=== PATIENT | female | born 1965 | race Caucasian/White ===

== ENCOUNTER 2017-01-30 22:25 | Emergency (ER) | payer SELFPAY ==
[~2017-01-30] VITALS: Ht 167.6 cm; Wt 68.0 kg
--- NOTE | 2017-01-30 22:28 | PHYS DOC ---
Past Medical History Additional Past Medical Histor: Thyroid Past Surgical History: No Surgical History Smoking: Cigarettes Social History Narrative: Lives with children Adult General Chief Complaint Chief Complaint: BACK PAIN OR INJURY HPI HPI Patient is a 51 year old female who presents with back pain. No prior injury or surgery. She states that she was fine yesterday. She went to bed and then awakened with low back pain. She states it got better and then she was out lifting bags off the sidewalk at around 1500 PM. She states she got in her car after that "and I couldn't move." No saddle anesthesia, no radiation of pain, no numbness/tingling or weakness of legs. The pain is across her whole lower back with pain into the lower right back. No recent illness; no fever. 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 Review of Systems Review of Systems Constitutional: Denies fever or chills Eyes: Denies change in visual acuity, redness, or eye pain HENT: Denies nasal congestion or sore throat Respiratory: Denies cough or shortness of breath Cardiovascular: No chest pain GI: Denies abdominal pain, nausea, vomiting, bloody stools or diarrhea : Denies dysuria or hematuria Musculoskeletal: POS back pain; no leg pain Integument: Denies rash or skin lesions Neurologic: Denies headache, focal weakness or sensory changes All other systems were reviewed and found to be within normal limits, except as documented in this note. Current Medications Current Medications Current Medications Medications (Trade) Dose Ordered Sig/Donn Start Time Stop Time Status Last Admin Dose Admin Diazepam (Valium) 5 mg 1X ONCE 01/30/17 22:45 01/30/17 23:06 DC 01/30/17 22:58 5 MG Ketorolac Tromethamine (Toradol Im) 60 mg 1X ONCE 01/30/17 22:45 01/30/17 23:06 DC 01/30/17 22:58 60 MG Orphenadrine Citrate (Norflex) 60 mg 1X ONCE 01/30/17 22:45 01/30/17 23:06 DC 01/30/17 22:58 60 MG Allergies Allergies Allergies Coded Allergies Type Severity Reaction Last Updated Verified amoxicillin Allergy Unknown 01/30/17 Yes clavulanic acid Allergy Unknown 01/30/17 Yes Physical Exam Physical Exam Constitutional: Well developed, well nourished, no acute distress, non-toxic appearance. HENT: Normocephalic, atraumatic, bilateral external ears normal, oropharynx moist, no oral exudates, nose normal. Eyes: PERRLA, EOMI, conjunctiva normal, no discharge. Neck: Normal range of motion, no tenderness, supple, no stridor. Cardiovascular:Heart rate regular rhythm, no murmur Lungs & Thorax: Bilateral breath sounds clear to auscultation Abdomen: Bowel sounds normal, soft, no tenderness, no masses, no pulsatile masses. Skin: Warm, dry, no erythema, no rash. Back: POS tenderness on palpation of right paraspinal lower lumbar muscles and right SI joint area. no CVA tenderness; no pain on palpation of spinous processes. No skin changes; no redness. . Extremities: No tenderness, no cyanosis, no clubbing, ROM intact, no edema. Neurologic: Alert and oriented X 3, normal motor function, normal sensory function, no focal deficits noted. Psychologic: Affect normal, judgement normal, mood normal. Current Patient Data Vital Signs Vital Signs Date Time Temp Pulse Resp B/P (MAP) Pulse Ox O2 Delivery O2 Flow Rate FiO2 01/30/17 22:25 98.1 75 18 199/85 (123) 98 Room Air 98.1 Course & Med Decision Making Course & Med Decision Making Evaluated patient upon arrival by EMS. No prior records here. She has no trauma preceding. She has distinct muscle spasm. Toradol IM, Norflex IM and valium po. Patient much improved. Daughter here to drive her home. Given back pain precautions and follow up. I have spoken with the patient and/or caregivers. I have explained the patient' s condition, diagnosis and treatment plan based on the information available to me at this time. I have answered the patient's and/or caregiver's questions and addressed any concerns. The patient and/or caregivers have as good an understanding of the patient's diagnosis, condition and treatment plan as can be expected at this point. The patient's condition is stable and appropriate for discharge from the emergency department. The patient will pursue further outpatient evaluation with the primary care physician or other designated or consulting physician as outlined in the discharge instructions. The patient and/or caregivers are agreeable to this plan of care and follow-up instructions have been explained in detail. The patient and/or caregivers have received these instructions in written format and have expressed an understanding of the discharge instructions. The patient and/or caregivers are aware that any significant change in condition or worsening of symptoms should prompt an immediate return to this or the closest emergency department or a call to 911. Kelsey Disclaimer Dragon Disclaimer This electronic medical record was generated, in whole or in part, using a voice recognition dictation system. Departure Departure Impression: Primary Impression: Acute lumbar myofascial strain Disposition: HOME, SELF-CARE Condition: STABLE Patient Instructions: Back Pain, Adult Additional Instructions: YOU WERE GIVEN MEDICATIONS HERE; DO NOT DRIVE. CONTINUE YOUR MEDICATIONS DIRECTED. USE ICE OR HEAT/WHICHEVER IMPROVES YOUR SYMPTOMS. PLACE A PILLOW UNDER YOUR LEGS WHEN YOU SLEEP OR BETWEEN YOUR LEGS. Scripts Orphenadrine Citrate (ORPHENADRINE CITRATE) 100 Mg Tablet.er 1 TAB PO BID, #30 TAB 1 Refill Prov: SULTANA HANSEN MD 01/30/17 Naproxen (NAPROSYN) 500 Mg Tablet 1 TAB PO BID, #30 TAB 1 Refill Prov: SULTANA HANSEN MD 01/30/17 Problem Qualifiers Primary Impression: Acute lumbar myofascial strain Encounter type: initial encounter Qualified Codes: S39.012A - Strain of muscle, fascia and tendon of lower back, initial encounter SULTANA HANSEN MD Jan 30, 2017 22:28
[2017-01-30] MEDS ORDERED: diazePAM 5 MG TABLET PO ONE (22:45)
[2017-01-30] MEDS ORDERED: ORPHENADRINE CITRATE 60 MG/2 ML VIAL. IM ONE (22:45)
[2017-01-30] MEDS ORDERED: KETOROLAC 60 MG/2 ML INJ. IM ONE (22:45)
[2017-01-30] MEDS ORDERED: NAPR-683 PO (23:45)
[2017-01-30] MEDS ORDERED: ORPH100T PO (23:45)
[2017-01-31 00:17] VITALS: BP 162/85
== END 2017-01-31 00:15 | disposition home or self-care (01) ==
LOC: ER 22:25
DX: S39.012A Strain of muscle, fascia and tendon of lower back, initial encounter (principal); F17.210 Nicotine dependence, cigarettes, uncomplicated; Z88.1 Allergy status to other antibiotic agents; Z88.8 Allergy status to other drugs, medicaments and biological substances; X58.XXXA Exposure to other specified factors, initial encounter; Y93.89 Activity, other specified; Y92.89 Other specified places as the place of occurrence of the external cause; Y99.8 Other external cause status
CPT/HCPCS: 96372; 99284; J1885; J2360

== ENCOUNTER 2017-11-13 12:12 | Emergency (ER) | payer OTHER ==
[~2017-11-13 12:12] MED LIST: NAPR-683 PO; ORPH100T PO
== END 2017-11-13 13:01 | disposition left against medical advice (07) ==
LOC: ER 12:12
DX: S91.319A Laceration without foreign body, unspecified foot, initial encounter (principal); Z53.21 Procedure and treatment not carried out due to patient leaving prior to being seen by health care provider

== ENCOUNTER 2018-08-29 20:14 | Emergency (ER) | payer OTHER ==
[~2018-08-29] VITALS: Ht 167.6 cm; Wt 81.6 kg
[2018-08-29 20:42] VITALS: BP 161/78
[2018-08-29] MEDS ORDERED: ALBUTEROL SULFATE 2.5 MG/3 ML NEBU. NEB ONE (20:45)
--- NOTE | 2018-08-29 20:58 | PHYS DOC ---
Past Medical History Past Medical History: Asthma, Hypothyroid Additional Past Medical Histor: Thyroid (JOBY BRUNSON APRN) Past Surgical History: No Surgical History (JOBY BRUNSON APRN) Smoking: Cigarettes, Less than 1pk/day Alcohol Use: None Drug Use: None (JOBY BRUNSON APRN) Adult General Chief Complaint Chief Complaint: COUGH HPI HPI Patient is a 52 year old female who presents to the emergency department with complaints of a productive cough for the last 3 weeks. Patient states she has had shortness of breath, sore throat, chest tightness, and congestion for the last 3 weeks. She states that she has been coughing up thick yellow sputum during the day and thick yellow to green sputum during the night. She denies any fever, ear pain, nausea, vomiting, abdominal pain, or palpitations. She states she has had a few loose stools recently. She rates her discomfort a 10 out of 10 on the pain scale, she denies any alleviating factors. She states that the discomfort increases with coughing and deep breath. (JOBY BRUNSON APRN) Review of Systems Review of Systems Constitutional: Denies fever or chills [] Eyes: Denies change in visual acuity, redness, or eye pain [] HENT: Reports nasal congestion and sore throat, denies ear pain Respiratory: see history of present illness Cardiovascular: No additional information not addressed in HPI [] GI: Denies abdominal pain, nausea, or vomiting; see history of present illness Musculoskeletal: Denies back pain or joint pain [] Integument: Denies rash or skin lesions [] Neurologic: Denies headache, focal weakness or sensory changes [] Complete systems were reviewed and found to be within normal limits, except as documented in this note. (JOBY BRUNSON APRN) Current Medications Current Medications Current Medications Medications (Trade) Dose Ordered Sig/Donn Start Time Stop Time Status Last Admin Dose Admin Albuterol Sulfate (Ventolin Neb Soln) 2.5 mg 1X ONCE 08/29/18 20:45 08/29/18 20:46 DC 08/29/18 21:06 2.5 MG Ipratropium [place] (Atrovent) 0.5 mg 1X ONCE 08/29/18 22:00 08/29/18 22:01 DC 08/29/18 22:15 0.5 MG Prednisone (Prednisone) 50 mg 1X ONCE 08/29/18 21:00 08/29/18 21:01 DC 08/29/18 21:00 50 MG (MILDRED RIGGS DO) Allergies Allergies Allergies Coded Allergies Type Severity Reaction Last Updated Verified amoxicillin Allergy Unknown 01/30/17 Yes clavulanic acid Allergy Unknown 01/30/17 Yes (MILDRED RIGGS DO) Physical Exam Physical Exam Constitutional: Well developed, well nourished, no acute distress, ill appearance. [] HENT: Normocephalic, atraumatic, bilateral external ears normal, bilateral TMs normal, cobblestone appearance of posterior pharynx oropharynx moist, no oral exudates, nose congested Eyes: conjunctiva normal, no discharge. [] Neck: Normal range of motion, no tenderness, supple, no stridor. [] Cardiovascular:Heart rate regular rhythm, no murmur [] Lungs & Thorax: Bilateral breath sounds coarse with expiratory wheezes, diminished in bases bilaterally, chest wall tenderness with palpation, no retractions, patient speaking in full sentences Skin: Warm, dry, no erythema, no rash. [] Extremities: No cyanosis, no clubbing, ROM intact, no edema. [] Neurologic: Alert and oriented X 3, no focal deficits noted. [] Psychologic: Affect normal, judgement normal, mood normal. [] (JOBY BRUNSON APRN) Current Patient Data Vital Signs Vital Signs Date Time Temp Pulse Resp B/P (MAP) Pulse Ox O2 Delivery O2 Flow Rate FiO2 08/29/18 22:11 94 Room Air 08/29/18 20:42 98.0 80 24 161/78 (105) 98.0 (MILDRED RIGGS DO) EKG EKG [] (JOBY BRUNSON APRN) Radiology/Procedures Radiology/Procedures CXR no acute findings or infiltrates read by Dr. Riggs[] (JOBY BRUNSON APRN) Course & Med Decision Making Course & Med Decision Making Pertinent Labs and Imaging studies reviewed. (See chart for details) dx: Bronchitis, asthma exacerbation She is a 52-year-old female who presented to the emergency room for complaints of a productive cough, shortness of breath, wheezing, and chest tightness for the last 3 weeks. She was given a breathing treatment of albuterol in the emergency department and 50 mg of by mouth prednisone. Patient's lung sounds improved however remained course with scattered wheezes following the breathing treatment. Patient reported feeling better after the breathing treatment and oral prednisone. Chest x-ray revealed no acute findings or infiltrates. Patient stated that she felt better and would like to go home. Prescription written for albuterol inhaler, azithromycin Z-Lio, and prednisone 50 mg tablets #4 Follow-up with your primary care doctor in 1-2 days, return to the ER if symptoms worsen. Patient verbalized an understanding of home care, medications, follow-up, and return to ED instructions and was in agreement with the plan of care. (JOBY BRUNSON APRN) Dragon Disclaimer Dragon Disclaimer This electronic medical record was generated, in whole or in part, using a voice recognition dictation system. (JOBY BRUNSON APRN) Departure Departure Impression: Primary Impression: Bronchitis Disposition: HOME, SELF-CARE Condition: STABLE Referrals: NO PCP (PCP) Patient Instructions: Acute Bronchitis, [id number] Additional Instructions: Fill prescription(s) and use as directed. Increase clear fluids, stop smoking. Avoid triggers such as smoke, fragrance, dust, and pollen. Follow-up with your primary care doctor in 1-2 days, return to the ER if symptoms worsen. Scripts Albuterol Sulfate (PROAIR HFA INHALER) 8.5 Gm Hfa.aer.ad 2 PUFF INH PRN Q4-6HRS PRN for SHORTNESS OF BREATH for 30 Days, #1 INHALER 0 Refills Prov: JOBY BRUNSON APRN 08/29/18 Prednisone (PREDNISONE) 50 Mg Tablet 1 TAB PO DAILY for 4 Days, #4 TAB 0 Refills begin taking on 08/30/18 Prov: JOBY BRUNSON APRN 08/29/18 Azithromycin (AZITHROMYCIN TABLET) 250 Mg Tablet 1 PKG PO UD, #6 TAB 0 Refills Prov: JOBY BRUNSON APRN 08/29/18 Attending Signature Attending Signature I have reviewed the PA/EXTRACTOR TENDER [employer]OCK's note and plan of care. I was available for consultation as needed during the patient's visit in the emergency department. I agree with the clinical impression, plan, and disposition. (RIGGS,JOBY SWIFT APRN Aug 29, 2018 20:58 MILDRED RIGGS DO Sep 04, 2018 00:08
[2018-08-29] MEDS ORDERED: predniSONE 10 MG TABLET PO ONE (21:00)
[2018-08-29] MEDS ORDERED: ALBU2.5V8 INH (21:54)
[2018-08-29] MEDS ORDERED: AZIT250T6 PO (21:54)
[2018-08-29] MEDS ORDERED: PRED50TA PO (21:54)
[2018-08-29] MEDS ORDERED: IPRATROPIUM BROMIDE 0.5 MG/2.5 ML NEBU. NEB ONE (22:00)
--- NOTE | 2018-08-30 07:31 | RAD ---
PROCEDURE: CHEST PA LATERAL CLINICAL INDICATION: Cough for 3 weeks. COMPARISON: None FINDINGS: No pneumothorax identified. Cardiac and mediastinal contours unremarkable. No pulmonary consolidation or acute airspace disease. No acute osseous abnormalities identified. IMPRESSION: No pulmonary consolidation or acute airspace disease. Electronically signed by: Fer Buckley DO (08/30/2018 7:28 AM) [facility]
== END 2018-08-29 22:21 | disposition home or self-care (01) ==
LOC: ER 20:14
DX: J45.909 Unspecified asthma, uncomplicated (principal); J02.9 Acute pharyngitis, unspecified; E03.9 Hypothyroidism, unspecified; F17.210 Nicotine dependence, cigarettes, uncomplicated; Z88.1 Allergy status to other antibiotic agents
CPT/HCPCS: 71046; 94640; 99284; J7512; J7613; J7644

== ENCOUNTER 2018-12-31 17:17 | Emergency (ER) | payer OTHER ==
[~2018-12-31] VITALS: Ht 170.2 cm; Wt 81.6 kg
[~2018-12-31 17:17] MED LIST changes: +ALBU2.5V8 INH; +AZIT250T6 PO; +PRED50TA PO
[2018-12-31 18:00] VITALS: BP 186/80
[2018-12-31] MEDS ORDERED: DEXAMETHASONE 4 MG TABLET PO STA (18:36)
--- NOTE | 2018-12-31 18:43 | PHYS DOC ---
Past Medical History Past Medical History: Asthma, Hypertension, Hypothyroid Additional Past Medical Histor: Thyroid Past Surgical History: No Surgical History Alcohol Use: None Drug Use: None Adult General Chief Complaint Chief Complaint: KNEE INJURY HPI HPI Patient is a 53 year old female who presents with right leg swelling started yesterday. She has redness, warmth, and swelling to the leg. She denies any trauma. She reports her pain as 7 out of 10 in severity she's been taking [place]'s at home. She states she has a history of asthma and COPD and she's been feeling a little bit short of breath. Review of Systems Review of Systems Constitutional: Denies fever or chills [] Eyes: Denies change in visual acuity, redness, or eye pain [] HENT: Denies nasal congestion or sore throat [] Respiratory: Reports cough and shortness of breath [] Cardiovascular: No additional information not addressed in HPI [] GI: Denies abdominal pain, nausea, vomiting, bloody stools or diarrhea [] : Denies dysuria or hematuria [] Musculoskeletal: Reports R leg pain. Integument: Denies rash or skin lesions [] Neurologic: Denies headache, focal weakness or sensory changes [] Endocrine: Denies polyuria or polydipsia [] Complete systems were reviewed and found to be within normal limits, except as documented in this note. Current Medications Current Medications Current Medications Medications (Trade) Dose Ordered Sig/[facility] Start Time Stop Time Status Last Admin Dose Admin Albuterol/ Ipratropium (Duoneb) 3 ml 1X ONCE 12/31/18 18:45 12/31/18 18:46 DC 12/31/18 18:55 3 ML Dexamethasone (Decadron) 10 mg 1X STAT 12/31/18 18:36 12/31/18 18:40 DC 12/31/18 19:01 10 MG Allergies Allergies Allergies Coded Allergies Type Severity Reaction Last Updated Verified amoxicillin Allergy Unknown 01/30/17 Yes clavulanic acid Allergy Unknown 01/30/17 Yes Physical Exam Physical Exam Constitutional: Well developed, well nourished, no acute distress, non-toxic appearance. [] HENT: Normocephalic, atraumatic, bilateral external ears normal, oropharynx moist, no oral exudates, nose normal. [] Eyes: PERRLA, EOMI, conjunctiva normal, no discharge. [] Neck: Normal range of motion, no tenderness, supple, no stridor. [] Cardiovascular:Heart rate regular rhythm, no murmur [] Lungs & Thorax: Bilateral breath sounds have wheezing and Rhonchi scattered diffusely. Abdomen: Bowel sounds normal, soft, no tenderness, no masses, no pulsatile masses. [] Skin: Warm, dry, , petichial rash R leg.[] Back: No tenderness, no CVA tenderness. [] Extremities: Tenderness to posterior knee with edema and warmth. Neurologic: Alert and oriented X 3, normal motor function, normal sensory function, no focal deficits noted. [] Psychologic: Affect normal, judgement normal, mood normal. [] Current Patient Data Vital Signs Vital Signs Date Time Temp Pulse Resp B/P (MAP) Pulse Ox O2 Delivery O2 Flow Rate FiO2 12/31/18 18:56 94 Room Air 12/31/18 18:00 97.8 73 15 186/80 (115) 97.8 EKG EKG [] Radiology/Procedures Radiology/Procedures [][facility] [address] [place] [address] IMAGING REPORT Signed PATIENT: SANDRO ELLIS ACCOUNT: [id number] : 1965 LOCATION: ER AGE: 53 SEX: F EXAM STATUS: DEP ER ORD. PHYSICIAN: MILDRED MOISE APRN REASON: leg pain/swelling PROCEDURE: VENOUS LOWER EXTREMITY RIGHT Right lower extremity venous Doppler ultrasound History: Right leg pain. Comparison: None. Procedure: Color flow Doppler, Doppler spectral analysis, and 2D images are obtained with and without compression in the area of the common femoral vein, superficial femoral vein - femoral vein junction, main femoral vein (superficial femoral vein) and popliteal vein. Veins of the proximal calf are also imaged. Findings: There is normal color flow, augmentation, and compressibility of all visualized vein segments. No evidence of deep venous thrombus is present. IMPRESSION: No evidence of right lower extremity deep venous thrombosis. Electronically signed by: Israel Leyva MD (12/31/2018 9:56 PM) [facility] DICTATED and SIGNED BY: ISRAEL LEYVA MD DATE: 12/31/18 2377 Course & Med Decision Making Course & Med Decision Making Pertinent Labs and Imaging studies reviewed. (See chart for details) Will give breathing treatment/steroids and get a ultrasound. Patient feels better after breathing treatment and steroids. Will d/c home. Ultrasound is negative. Will have follow up with primary care doctor for more tests. Dragon Disclaimer Dragon Disclaimer This electronic medical record was generated, in whole or in part, using a voice recognition dictation system. Departure Departure Impression: Primary Impression: Right leg pain Additional Impressions: Rash in adult COPD exacerbation Disposition: HOME, SELF-CARE Condition: STABLE Referrals: JANIS VELAZQUEZ MD (PCP) Patient Instructions: Chronic Obstructive Pulmonary Disease Exacerbation Additional Instructions: Thank you for visiting [facility]. We appreciate you trusting us with your care. If any additional problems come up don't hesitate to return to visit us. Please follow up with your primary care provider so they can plan additional care if needed and know about the problem that you had. If symptoms worsen come back to the Emergency Department. Any concerning symptoms that start such as chest pain, shortness of air, weakness or numbness on one side of the body, running high fevers or any other concerning symptoms return to the ER. Problem Qualifiers MILDRED OMISE APRN Dec 31, 2018 18:43
[2018-12-31] MEDS ORDERED: IPRATRPIUM/ALBUTEROL 0.5/2.5MG 3 ML NEBU. NEB ONE (18:45)
--- NOTE | 2018-12-31 21:58 | RAD ---
Right lower extremity venous Doppler ultrasound History: Right leg pain. Comparison: None. Procedure: Color flow Doppler, Doppler spectral analysis, and 2D images are obtained with and without compression in the area of the common femoral vein, superficial femoral vein - femoral vein junction, main femoral vein (superficial femoral vein) and popliteal vein. Veins of the proximal calf are also imaged. Findings: There is normal color flow, augmentation, and compressibility of all visualized vein segments. No evidence of deep venous thrombus is present. IMPRESSION: No evidence of right lower extremity deep venous thrombosis. Electronically signed by: Israel Leyva MD (12/31/2018 9:56 PM) [facility]
== END 2018-12-31 21:25 | disposition home or self-care (01) ==
LOC: ER 17:17
DX: J44.1 Chronic obstructive pulmonary disease with (acute) exacerbation (principal); M79.604 Pain in right leg; R21 Rash and other nonspecific skin eruption; E03.9 Hypothyroidism, unspecified; I10 Essential (primary) hypertension; Z88.1 Allergy status to other antibiotic agents; Z88.8 Allergy status to other drugs, medicaments and biological substances
CPT/HCPCS: 93971; 94640; 99284; J7620; J8540

== ENCOUNTER → 2019-01-22 | Outpatient (CLI) | payer OTHER ==
[2018-12-31 18:00] VITALS: BP 186/80
--- NOTE | 2019-01-22 13:05 | RAD ---
Examination: KNEE RIGHT 3V History: Pain Comparison/Correlation: None Findings: Total of 3 images of the right knee were obtained. Joint spaces are normal. No fracture or bony destruction. No significant joint effusion. Bony mineralization is adequate. No definite or significant degenerative change. Impression: No suspicious process. Electronically signed by: Milton Tripathi MD (01/22/2019 1:02 PM) [facility]
== END | disposition home or self-care (01) ==
LOC: RAD 11:16
PROVIDERS: ATTEND Family Medicine
DX: M25.561 Pain in right knee (principal)
CPT/HCPCS: 73562

== ENCOUNTER 2019-08-25 08:57 | Inpatient (IN) | payer OTHER ==
[~2019-08-25] VITALS: Ht 167.6 cm; Wt 90.9 kg
[~2019-08-25 08:57] MED LIST changes: +LISI10TA2 PO
[2019-08-25] MEDS ORDERED: IV NORMAL SALINE 1000ML BAG 1,000 ML IV ONE (09:45)
[2019-08-25] MEDS ORDERED: DEXAMETHASONE SOD PHOS 4 MG/ML VIAL IVP ONE (09:45)
[2019-08-25] MEDS ORDERED: AZITHRMYCN 500MG IVPB FOR OMNI 250 ML IV ONE (09:45)
--- NOTE | 2019-08-25 09:46 | PHYS DOC ---
Past Medical History Past Medical History: Asthma, COPD, Hypertension, Hypothyroid Past Surgical History: No Surgical History Smoking Status: Current Every Day Smoker Alcohol Use: None Drug Use: Marijuana General Adult EDM: Chief Complaint: SHORTNESS OF BREATH HPI: HPI: 53-year-old female presents with past medical history of asthma and COPD presents with report of increased shortness of air and wheezing for the past 1 week. Reports productive cough with yellow sputum. Denies known sick contacts. Denies fever or chills. Denies known exposure to COVID-19. Review of Systems: Review of Systems: Constitutional: Denies fever or chills Eyes: Denies redness or eye pain HENT: Reports nasal congestion and sneezing Respiratory: Reports productive cough, wheezing, and shortness of breath Cardiovascular: Denies chest pain or palpitations GI: Denies abdominal pain, nausea, or vomiting : Denies dysuria or hematuria Musculoskeletal: Denies back pain or joint pain Integument: Denies rash or skin lesions Neurologic: Reports headache; reports focal weakness or sensory changes Complete systems were reviewed and found to be within normal limits, except as documented in this note. Current Medications: Current Medications Medications (Trade) Dose Ordered Sig/Donn Start Time Stop Time Status Last Admin Dose Admin Azithromycin 250 ml @ 250 mls/hr 1X ONCE 08/25/19 09:45 08/25/19 10:44 UNV Dexamethasone Sodium Phosphate (Decadron) 10 mg 1X ONCE 08/25/19 09:45 08/25/19 09:46 UNV Sodium Chloride 1,000 ml @ 1,000 mls/hr 1X ONCE 08/25/19 09:45 08/25/19 10:44 UNV Allergies: Allergies: Allergies Coded Allergies Type Severity Reaction Last Updated Verified amoxicillin Allergy Severe SOB,RASH 02/09/19 Yes clavulanic acid Allergy Unknown 01/30/17 Yes Physical Exam: PE: Constitutional: Well developed, well nourished, no acute distress, non-toxic appearance HENT: Normocephalic, atraumatic Eyes: Conjunctiva normal, no discharge Neck: Normal range of motion, no tenderness, supple Lungs & Thorax: Increased work of breathing, audible wheezing Abdomen: Soft, no tenderness Skin: Warm, dry, no erythema, no rash Extremities: No tenderness, ROM intact, no edema Neurologic: Alert and oriented X 3, no focal deficits noted Psychologic: Affect normal, judgment normal EKG: EKG: @0925 NSR at 89bpm, NO ST elevation, QRS 74ms, QT/QTc 346/422ms, V6 with wand ering baseline Radiology/Procedures: Radiology/Procedures: PROCEDURE: CHEST AP ONLY Chest AP portable 08/25/2019. Reason for exam: Cough and wheeze. Comparison is made with a study of 02/08/2019. The right IJ central line has been removed since the prior exam. Some haziness projects over the lower lungs, but is thought to relate to overlying breast tissue. There is no identified infiltrate or effusion. Heart size is normal. IMPRESSION: No acute findings. Electronically signed by: Alexander Schwartz Jr., MD (08/25/2019 11:14 AM) [id number] Course & Med Decision Making: Course & Med Decision Making Pertinent Labs and Imaging studies reviewed. (See chart for details) Patient presents with report of progressive wheezing with productive cough. Patient noted to be hypoxic upon arrival. Improved with supplemental O2. Cannot exclude COVID-19. Patient denies known exposure. COVID precautions in place and testing pending. Labs obtained and posted to chart. WBC slightly elevated. Lactic acid within normal limits. Troponin and d-dimer also within normal limits. EKG stable. Chest x-ray without acute process. Given him sputum change empiric antibiotic initiated. Steroid provided. Patient requiring admission for further evaluation and treatment. Discussed with Dr. Grimaldo (PCP) who is in agreement with admission. Discussed findings and plan with patient, who acknowledges understanding and agreement. COVID-19 CRITERIA: The patient was evaluated during the global COVID-19 pandemic, and that diagnosis was suspected/considered upon their initial present ation. Their evaluation, treatment and testing was consistent with current guidelines for patients who present with complaints or symptoms that may be related to COVID-19. Dragon Disclaimer: Dragon Disclaimer: This electronic medical record was generated, in whole or in part, using a voice recognition dictation system. Departure Departure Impression: Primary Impression: COPD exacerbation Additional Impressions: Hypoxia Suspected 2018 novel coronavirus infection Disposition: ADMITTED INPATIENT Condition: GUARDED Referrals: JANIS VELAZQUEZ MD (PCP) Justicifation of Admission Dx: Justifications for Admission: Justification of Admission Dx: Yes Acute COPD Exacerbation: Acute COPD Exacerbation Comments: Hypoxia COVID-19 Assessment: COVID-19 Patient Risks: Age 65 or older: No Sign of co-morbidity: No Exp to person + for COVID: No Exp to PUI: No Travel from affected area: No Lower respiratory symptoms: Yes Fever: No PPE Use: Full PPE with N95 mask or PAPR: Yes Critical Care Time Critical care time was 30 minutes which includes time at bedside, spent in discussion of patient's care with specialists and/or family members, with interpretation of laboratory and/or radiological studies and is exclusive of procedures. MILDRED RIGGS DO Aug 25, 2019 09:46
[2019-08-25 09:57] LABS: BASO # 0.1 x10^3/uL (0.0-0.2); BASO % 1 % (0-3); EOS # 0.1 x10^3/uL (0.0-0.7); EOS % 0 % (0-3); HEMATOCRIT 45.9 % (36.0-47.0); HEMOGLOBIN 15.6 g/dL (12.0-15.5); LYMPH # 1.6 x10^3/uL (1.0-4.8); LYMPH % 12 % (24-48); MEAN CORPUSCULAR HEMOGLOBIN 30 pg (25-35); MEAN CORPUSCULAR HGB CONC 34 g/dL (31-37); MEAN CORPUSCULAR VOLUME 87 fL (79-100); MONO % 8 % (0-9); NEUT # 10.5 x10^3/uL (1.8-7.7); NEUT % 79 % (31-73); PLATELET COUNT 266 x10^3/uL (140-400); RED BLOOD COUNT 5.26 x10^6/uL (3.50-5.40); RED CELL DISTRIBUTION WIDTH 14.4 % (11.5-14.5); WHITE BLOOD COUNT 13.3 x10^3/uL (4.0-11.0)
[2019-08-25 10:05] LABS: CALCIUM 9.1 mg/dL (8.5-10.1); CREATININE 0.8 mg/dL (0.6-1.0); GFR 74.5; POTASSIUM 4.1 mmol/L (3.5-5.1)
[2019-08-25 10:09] LABS: PROTHROMBIN TIME PATIENT 13.1 SEC (11.7-14.0)
[2019-08-25 10:23] LABS: ALBUMIN 3.1 g/dL (3.4-5.0); ALBUMIN/GLOBULIN RATIO 0.7 (1.0-1.7); D-DIMER 0.36 ug/mlFEU (0.00-0.50); TOTAL BILIRUBIN 0.7 mg/dL (0.2-1.0); TOTAL PROTEIN 7.7 g/dL (6.4-8.2)
[2019-08-25] MEDS ORDERED: ACETAMINOPHEN 325 MG TABLET. PO PRN (11:00)
[2019-08-25] MEDS ORDERED: ALBUTEROL SULFATE 2.5 MG/3 ML NEBU. NEB PRN (11:15)
--- NOTE | 2019-08-25 11:17 | RAD ---
Chest AP portable 08/25/2019. Reason for exam: Cough and wheeze. Comparison is made with a study of 02/08/2019. The right IJ central line has been removed since the prior exam. Some haziness projects over the lower lungs, but is thought to relate to overlying breast tissue. There is no identified infiltrate or effusion. Heart size is normal. IMPRESSION: No acute findings. Electronically signed by: Alexander Schwartz Jr., MD (08/25/2019 11:14 AM) [id number]
--- NOTE | 2019-08-25 12:48 | PDOC ---
Provider Note Provider Note [id number] Justicifation of Admission Dx: Justifications for Admission: Justification of Admission Dx: Yes Acute COPD Exacerbation: Acute COPD Exacerbation SMITHA GREGORIO MD Aug 25, 2019 12:48
--- NOTE | 2019-08-25 12:50 | NUR ---
Patient arrived to room 672 via bed from ER at 1250. Patient A&OX4. VSS. The patient, SANDRO ELLIS, 53 y/o, F admitted by SMITHA GREGORIO MD, was given written information regarding hospital policies, unit procedures and contact persons. Valuables were checked and noted. Will continue to monitor.
--- NOTE | 2019-08-25 12:57 | HP ---
ADMIT DATE: 08/25/2019 CHIEF COMPLAINT: Shortness of breath and productive cough. HISTORY OF PRESENT ILLNESS: The patient is a 53-year-old white female with history of hypertension and COPD, who normally sees Dr. Gaming and was last seen in February of this year. She has had increasing cough, shortness of breath and yellow sputum production for the last 4-5 days and came to the ER. Chest x-ray was clear. COVID test is pending. She was given a dose of Decadron and azithromycin and transferred to the floor. PAST MEDICAL HISTORY: ALLERGIES: ALLERGIC TO AUGMENTIN. MEDICATIONS: Lisinopril is her only prescription. She has not been in the hospital for a few years. She has had pneumococcal vaccine. SURGICAL HISTORY: No major surgeries. SOCIAL HISTORY: Still smokes about a pack a day. and employed. Nondrinker. FAMILY HISTORY: Unremarkable. REVIEW OF SYSTEMS: Unremarkable. OBJECTIVE: ENT: All within normal limits with a mask in place. NECK: No bruits, nodes or thyroid enlargement. LUNGS: Coarse inspiratory and expiratory wheezes and mild tachypnea. Breath sounds are equal. CARDIOVASCULAR: Regular rate, rate is about 90-100. No murmur. BREASTS: Not examined. ABDOMEN: Soft, benign and nontender. EXTREMITIES: Excellent pedal and radial pulses, only 1+ clubbing is noted. No cyanosis or edema. NEUROLOGIC: Physiologic, appropriate, responsive and oriented x 4. ASSESSMENT: 1. Chronic obstructive pulmonary disease with acute exacerbation, likely secondary to acute bacterial bronchitis. 2. Chronic tobacco abuse and mild hypertension as well. PLAN: DuoNebs, IV steroids, Rocephin. Pending sputum production culture. COVID test is pending, but low suspicion here. SMITHA GREGORIO MD DR: JONH/lucía JOB#: [id number] / [id number]
[2019-08-25 13:00] VITALS: BP 145/78
--- NOTE | 2019-08-25 14:02 | CONS ---
DATE OF CONSULTATION: 08/25/2019 REASON FOR CONSULTATION: I was asked to see this 53-year-old lady for acute respiratory failure. HISTORY OF PRESENT ILLNESS: She does have history of [id number]-fmon smoking. She continues to smoke about 1 pack per day. She has COPD. She has had increased shortness of breath, cough with sputum production, chills and wheezing for the past few days. She presented to the Emergency Room. Her COVID-19 testing is pending. PAST MEDICAL HISTORY: COPD, hypertension, hypothyroidism. ALLERGIES: AMOXICILLIN, CLAVULANIC ACID. SOCIAL HISTORY: History of 73-[id number]-qbmw smoking, continues to smoke 1 pack per day. MEDICATIONS: Currently, she is on Solu-Medrol 40 mg every 12, Rocephin, albuterol p.r.n. FAMILY HISTORY: Hypertension. REVIEW OF SYSTEMS: As mentioned as above, other systems otherwise negative. PHYSICAL EXAMINATION: GENERAL: This is a well-developed lady. VITAL SIGNS: Her O2 saturation on 3 liters of oxygen is 95%, respiratory rate 18, heart rate 79, blood pressure 149/78, temperature 99.1. HEENT: Normocephalic, atraumatic. NECK: Short. CARDIOVASCULAR: Regular rate and rhythm. LUNGS: There is no audible wheezing. ABDOMEN: There is no paradoxical abdominal motion. EXTREMITIES: There is no edema. NEUROLOGIC: Alert and oriented. LABORATORY DATA: I reviewed the following lab data: Chest x-ray does not show infiltrate. WBC 13.3, hemoglobin 15.6, platelet 266. Sodium 138, potassium 4.1, chloride 101, CO2 of 31, BUN 14, creatinine 0.8. Lactic acid 0.9. Troponin less than 0.01. BNP 155. IMPRESSION: 1. Acute hypoxemic respiratory failure secondary to acute exacerbation of chronic obstructive pulmonary disease, acute bronchitis, rule out COVID-19. 2. Acute exacerbation of chronic obstructive pulmonary disease. 3. Acute bronchitis. 4. COVID-19 PUI. 5. Tobacco habituation. 6. Hypertension. 7. Hypothyroidism. PLAN AND RECOMMENDATIONS: 1. Titrate FiO2 to keep O2 saturation 92%. 2. Bronchodilator. 3. Continue steroid. 4. Follow up COVID-19 testing. 5. Continue Rocephin. 6. I had a long discussion with her regarding smoking cessation. I have advised her to stop smoking forever. Thank you very much for allowing me to participate in care of this very nice lady. PHILIPP JURADO M.D. DR: James JOB#: [id number] / [id number]
[2019-08-25] MEDS: IPRATRPIUM/ALBUTEROL 0.5/2.5MG 3 ML NEBU. NEB SCH ×2 (14:21→14:22)
[2019-08-25] MEDS: cefTRIAXone IV Push 1 GM VIAL. IVP SCH (14:42)
[2019-08-25] MEDS: LISINOPRIL 10 MG TABLET PO SCH (14:42)
[2019-08-25 15:59] VITALS: BP 147/75
[2019-08-25] MEDS ORDERED: IPRATRPIUM/ALBUTEROL 0.5/2.5MG 3 ML NEBU. NEB SCH (16:00)
[2019-08-25] MEDS: methylPREDNISolone SOD SUCC PF 40 MG/ML VIAL. IV SCH (17:58)
[2019-08-25 18:33] LABS: BILIRUBIN,URINE NEGATIVE (NEG); CLARITY,URINE CLEAR; COLOR,URINE YELLOW; NITRITE,URINE NEGATIVE (NEG); PH,URINE 6.5 (<5.0-8.0); PROTEIN,URINE NEGATIVE (NEG-TRACE)
[2019-08-25 18:39] LABS: BACTERIA,URINE FEW /HPF (0-FEW); SQUAMOUS EPITHELIAL CELL,UR FEW /LPF; WBC,URINE OCC /HPF (0-4)
[2019-08-25 19:45] VITALS: BP 168/73
[2019-08-25] MEDS: LACTOBACILLUS RHAMNOSUS GG 1 CAPSULE. PO SCH (20:59)
[2019-08-25] MEDS: ALBUTEROL SULFATE 8GM INHALER. INH PRN ×2 (21:00→23:44)
[2019-08-25 23:00] VITALS: BP 161/83
[2019-08-26 03:50] VITALS: BP 143/65
[2019-08-26] MEDS: ALBUTEROL SULFATE 8GM INHALER. INH PRN (04:24)
[2019-08-26 07:00] VITALS: BP 139/77
[2019-08-26] MEDS: LACTOBACILLUS RHAMNOSUS GG 1 CAPSULE. PO SCH ×2 (08:47→19:44)
[2019-08-26] MEDS: LISINOPRIL 10 MG TABLET PO SCH (08:47)
[2019-08-26] MEDS: methylPREDNISolone SOD SUCC PF 40 MG/ML VIAL. IV SCH ×2 (08:47→19:44)
--- NOTE | 2019-08-26 09:14 | PDOC ---
Provider Note Provider Note vss, no temp, wheezing same, covid pending- sleeping now, no tachypnea- will cont rocep/steroid pending results, she has declined nicotine patch Justicifation of Admission Dx: Justifications for Admission: Justification of Admission Dx: Yes Acute COPD Exacerbation: Acute COPD Exacerbation SMITHA GREGORIO MD Aug 26, 2019 09:14
[2019-08-26] MEDS ORDERED: ALBUTEROL SULFATE 8GM INHALER. INH PRN (09:15)
[2019-08-26 11:01] VITALS: BP 140/88
--- NOTE | 2019-08-26 12:59 | PDOC ---
PULMONARY PROGRESS NOTES Subjective sob, cough better, no cp Vitals Vital Signs Date Time Temp Pulse Resp B/P (MAP) Pulse Ox O2 Delivery O2 Flow Rate FiO2 08/26/19 11:01 95.5 81 18 140/88 (105) 90 Nasal Cannula 4.0 95.5 Comments no 02 no distress nc at no paradoxical abd motion no audible wheezing no edema no rashj nsr on monitor General: Alert Cardiovascular: S1, S2 Neuro Exam: Alert Extremities: No Edema Skin: No Rashes Labs Laboratory Tests Test 08/25/19 09:30 08/25/19 18:00 White Blood Count 13.3 x10^3/uL (4.0-11.0) Red Blood Count 5.26 x10^6/uL (3.50-5.40) Hemoglobin 15.6 g/dL (12.0-15.5) Hematocrit 45.9 % (36.0-47.0) Mean Corpuscular Volume 87 fL (79-100) Mean Corpuscular Hemoglobin 30 pg (25-35) Mean Corpuscular Hemoglobin Concent 34 g/dL (31-37) Red Cell Distribution Width 14.4 % (11.5-14.5) Platelet Count 266 x10^3/uL (140-400) Neutrophils (%) (Auto) 79 % (31-73) Lymphocytes (%) (Auto) 12 % (24-48) Monocytes (%) (Auto) 8 % (0-9) Eosinophils (%) (Auto) 0 % (0-3) Basophils (%) (Auto) 1 % (0-3) Neutrophils # (Auto) 10.5 x10^3/uL (1.8-7.7) Lymphocytes # (Auto) 1.6 x10^3/uL (1.0-4.8) Monocytes # (Auto) 1.0 x10^3/uL (0.0-1.1) Eosinophils # (Auto) 0.1 x10^3/uL (0.0-0.7) Basophils # (Auto) 0.1 x10^3/uL (0.0-0.2) Prothrombin Time 13.1 SEC (11.7-14.0) Prothromb Time International Ratio 1.0 (0.8-1.1) Activated Partial Thromboplast Time 35 SEC (24-38) D-Dimer (Rona) 0.36 ug/mlFEU (0.00-0.50) Sodium Level 138 mmol/L (136-145) Potassium Level 4.1 mmol/L (3.5-5.1) Chloride Level 101 mmol/L (98-107) Carbon Dioxide Level 31 mmol/L (21-32) Anion Gap 6 (6-14) Blood Urea Nitrogen 14 mg/dL (7-20) Creatinine 0.8 mg/dL (0.6-1.0) Estimated GFR (Cockcroft-Gault) 74.5 BUN/Creatinine Ratio 18 (6-20) Glucose Level 114 mg/dL (70-99) Lactic Acid Level 0.9 mmol/L (0.4-2.0) Calcium Level 9.1 mg/dL (8.5-10.1) Magnesium Level 2.0 mg/dL (1.8-2.4) Ferritin 94 ng/mL (8-252) Total Bilirubin 0.7 mg/dL (0.2-1.0) Aspartate Amino Transf (AST/SGOT) 24 U/L (15-37) Alanine Aminotransferase (ALT/SGPT) 33 U/L (14-59) Alkaline Phosphatase 83 U/L (46-116) Lactate Dehydrogenase 159 U/L (81-234) Creatine Kinase 86 U/L (26-192) Creatine Kinase MB (Mass) 1.8 ng/mL (0.0-3.6) Creatine Kinase MB Relative Index 2.1 % (0-4) Troponin I Quantitative < 0.017 ng/mL (0.000-0.055) FB-Dgq-E-Type Natriuretic Peptide 155 pg/mL (0-124) Total Protein 7.7 g/dL (6.4-8.2) Albumin 3.1 g/dL (3.4-5.0) Albumin/Globulin Ratio 0.7 (1.0-1.7) Urine Collection Type Unknown Urine Color Yellow Urine Clarity Clear Urine pH 6.5 (<5.0-8.0) Urine Specific [place] 1.015 (1.000-1.030) Urine Protein Negative mg/dL (NEG-TRACE) Urine Glucose (UA) Negative mg/dL (NEG) Urine Ketones (Stick) Negative mg/dL (NEG) Urine Blood Small (NEG) Urine Nitrite Negative (NEG) Urine Bilirubin Negative (NEG) Urine Urobilinogen Dipstick 1.0 mg/dL (0.2 mg/dL) Urine Leukocyte Esterase Negative (NEG) Urine RBC 3-5 /HPF (0-2) Urine WBC Occ /HPF (0-4) Urine Squamous Epithelial Cells Few /LPF Urine Bacteria Few /HPF (0-FEW) Urine Mucus Slight /LPF Laboratory Tests Test 08/25/19 18:00 Urine Collection Type Unknown Urine Color Yellow Urine Clarity Clear Urine pH 6.5 (<5.0-8.0) Urine Specific [place] 1.015 (1.000-1.030) Urine Protein Negative mg/dL (NEG-TRACE) Urine Glucose (UA) Negative mg/dL (NEG) Urine Ketones (Stick) Negative mg/dL (NEG) Urine Blood Small (NEG) Urine Nitrite Negative (NEG) Urine Bilirubin Negative (NEG) Urine Urobilinogen Dipstick 1.0 mg/dL (0.2 mg/dL) Urine Leukocyte Esterase Negative (NEG) Urine RBC 3-5 /HPF (0-2) Urine WBC Occ /HPF (0-4) Urine Squamous Epithelial Cells Few /LPF Urine Bacteria Few /HPF (0-FEW) Urine Mucus Slight /LPF Medications Active Scripts Medications Dose Route/Sig Max Daily Dose Days Date Category Lisinopril 10 Mg Tablet 10 Mg PO DAILY 02/09/19 Reported Proair Hfa Inhaler (Albuterol Sulfate) 8.5 Gm Hfa.aer.ad 2 Puff INH PRN Q4-6HRS PRN 30 08/29/18 Rx Orphenadrine Citrate 100 Mg Tablet.er 1 Tab PO BID 01/30/17 Rx Impression . IMPRESSION: 1. Acute hypoxemic respiratory failure secondary to acute exacerbation of chronic obstructive pulmonary disease, acute bronchitis, rule out COVID-19. 2. Acute exacerbation of chronic obstructive pulmonary disease. 3. Acute bronchitis. 4. COVID-19 PUI. 5. Tobacco habituation. 6. Hypertension. 7. Hypothyroidism. Plan . PLAN AND RECOMMENDATIONS: 1. Titrate FiO2 to keep O2 saturation 92%. 2. Bronchodilator. 3. Continue steroid. 4. Follow up COVID-19 testing. 5. Continue Rocephin. 6. I had a long discussion with her regarding smoking cessation. I have advised her to stop smoking forever. discussed w rn PHILIPP Rand MD Aug 26, 2019 12:59
[2019-08-26] MEDS: cefTRIAXone IV Push 1 GM VIAL. IVP SCH (14:00)
[2019-08-26 15:00] VITALS: BP 136/82
[2019-08-26 19:10] VITALS: BP 158/72
[2019-08-26 23:40] VITALS: BP 158/82
[2019-08-27 03:00] VITALS: BP 173/115
--- NOTE | 2019-08-27 06:46 | EKG ---
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
[2019-08-27 07:00] VITALS: BP 164/98
[2019-08-27] MEDS ORDERED: ASA/APAP/CAFFEINE 250/250/65MG TABLET. PO PRN (08:00)
[2019-08-27] MEDS: IPRATROPIUM/ALBUTEROL 20/100mcg/INH INHALER. INH SCH ×3 (08:00→16:00)
--- NOTE | 2019-08-27 08:14 | PDOC ---
Provider Note Provider Note still wheezingbut better, bp high aas it likely is at home- add combivent, 2 bp meds, now po levoflox, still iv steroid for 1-2 more d- covid pending also Justicifation of Admission Dx: Justifications for Admission: Justification of Admission Dx: Yes Acute COPD Exacerbation: Acute COPD Exacerbation SMITHA GREGORIO MD Aug 27, 2019 08:14
--- NOTE | 2019-08-27 08:35 | PDOC ---
PULMONARY PROGRESS NOTES Subjective Patient still wheezing still short of breath, was wondering if she could go home Vitals Vital Signs Date Time Temp Pulse Resp B/P (MAP) Pulse Ox O2 Delivery O2 Flow Rate FiO2 08/27/19 07:00 97.3 75 18 164/98 (120) 92 Nasal Cannula 4.0 97.3 Comments no 02 no distress nc at no paradoxical abd motion no audible wheezing no edema no rashj nsr on monitor General: Alert Cardiovascular: S1, S2 Neuro Exam: Alert Extremities: No Edema Skin: No Rashes Labs Laboratory Tests Test 08/25/19 09:30 08/25/19 18:00 White Blood Count 13.3 x10^3/uL (4.0-11.0) Red Blood Count 5.26 x10^6/uL (3.50-5.40) Hemoglobin 15.6 g/dL (12.0-15.5) Hematocrit 45.9 % (36.0-47.0) Mean Corpuscular Volume 87 fL (79-100) Mean Corpuscular Hemoglobin 30 pg (25-35) Mean Corpuscular Hemoglobin Concent 34 g/dL (31-37) Red Cell Distribution Width 14.4 % (11.5-14.5) Platelet Count 266 x10^3/uL (140-400) Neutrophils (%) (Auto) 79 % (31-73) Lymphocytes (%) (Auto) 12 % (24-48) Monocytes (%) (Auto) 8 % (0-9) Eosinophils (%) (Auto) 0 % (0-3) Basophils (%) (Auto) 1 % (0-3) Neutrophils # (Auto) 10.5 x10^3/uL (1.8-7.7) Lymphocytes # (Auto) 1.6 x10^3/uL (1.0-4.8) Monocytes # (Auto) 1.0 x10^3/uL (0.0-1.1) Eosinophils # (Auto) 0.1 x10^3/uL (0.0-0.7) Basophils # (Auto) 0.1 x10^3/uL (0.0-0.2) Prothrombin Time 13.1 SEC (11.7-14.0) Prothromb Time International Ratio 1.0 (0.8-1.1) Activated Partial Thromboplast Time 35 SEC (24-38) D-Dimer (Rona) 0.36 ug/mlFEU (0.00-0.50) Sodium Level 138 mmol/L (136-145) Potassium Level 4.1 mmol/L (3.5-5.1) Chloride Level 101 mmol/L (98-107) Carbon Dioxide Level 31 mmol/L (21-32) Anion Gap 6 (6-14) Blood Urea Nitrogen 14 mg/dL (7-20) Creatinine 0.8 mg/dL (0.6-1.0) Estimated GFR (Cockcroft-Gault) 74.5 BUN/Creatinine Ratio 18 (6-20) Glucose Level 114 mg/dL (70-99) Lactic Acid Level 0.9 mmol/L (0.4-2.0) Calcium Level 9.1 mg/dL (8.5-10.1) Magnesium Level 2.0 mg/dL (1.8-2.4) Ferritin 94 ng/mL (8-252) Total Bilirubin 0.7 mg/dL (0.2-1.0) Aspartate Amino Transf (AST/SGOT) 24 U/L (15-37) Alanine Aminotransferase (ALT/SGPT) 33 U/L (14-59) Alkaline Phosphatase 83 U/L (46-116) Lactate Dehydrogenase 159 U/L (81-234) Creatine Kinase 86 U/L (26-192) Creatine Kinase MB (Mass) 1.8 ng/mL (0.0-3.6) Creatine Kinase MB Relative Index 2.1 % (0-4) Troponin I Quantitative < 0.017 ng/mL (0.000-0.055) SP-Eog-E-Type Natriuretic Peptide 155 pg/mL (0-124) Total Protein 7.7 g/dL (6.4-8.2) Albumin 3.1 g/dL (3.4-5.0) Albumin/Globulin Ratio 0.7 (1.0-1.7) Urine Collection Type Unknown Urine Color Yellow Urine Clarity Clear Urine pH 6.5 (<5.0-8.0) Urine Specific [place] 1.015 (1.000-1.030) Urine Protein Negative mg/dL (NEG-TRACE) Urine Glucose (UA) Negative mg/dL (NEG) Urine Ketones (Stick) Negative mg/dL (NEG) Urine Blood Small (NEG) Urine Nitrite Negative (NEG) Urine Bilirubin Negative (NEG) Urine Urobilinogen Dipstick 1.0 mg/dL (0.2 mg/dL) Urine Leukocyte Esterase Negative (NEG) Urine RBC 3-5 /HPF (0-2) Urine WBC Occ /HPF (0-4) Urine Squamous Epithelial Cells Few /LPF Urine Bacteria Few /HPF (0-FEW) Urine Mucus Slight /LPF Medications Active Scripts Medications Dose Route/Sig Max Daily Dose Days Date Category Lisinopril 10 Mg Tablet 10 Mg PO DAILY 02/09/19 Reported Proair Hfa Inhaler (Albuterol Sulfate) 8.5 Gm Hfa.aer.ad 2 Puff INH PRN Q4-6HRS PRN 30 08/29/18 Rx Orphenadrine Citrate 100 Mg Tablet.er 1 Tab PO BID 01/30/17 Rx Impression . IMPRESSION: 1. Acute hypoxemic respiratory failure secondary to acute exacerbation of chronic obstructive pulmonary disease, acute bronchitis 2. Acute exacerbation of chronic obstructive pulmonary disease. 3. Acute bronchitis. 4. SARS COVID 2- 5. Tobacco habituation. 6. Hypertension. 7. Hypothyroidism. Plan . Possible discharge 08/27 okay by me Taper prednisone and antibiotics for additional 5 days Patient instructed on discontinuing tobacco use Recommend Spiriva, as needed albuterol. As an outpatient DEISY MCGARRY MD Aug 27, 2019 08:35
[2019-08-27] MEDS ORDERED: FAMOTIDINE 20 MG TABLET. PO SCH (09:00)
[2019-08-27] MEDS ORDERED: amLODIPine BESYLATE 5 MG TABLET PO SCH (09:00)
[2019-08-27] MEDS ORDERED: hydroCHLOROthiazide 12.5 MG CAPSULE PO SCH (09:00)
[2019-08-27] MEDS: methylPREDNISolone SOD SUCC PF 40 MG/ML VIAL. IV SCH (09:41)
[2019-08-27] MEDS: LISINOPRIL 10 MG TABLET PO SCH (09:42)
[2019-08-27] MEDS: LACTOBACILLUS RHAMNOSUS GG 1 CAPSULE. PO SCH (09:42)
[2019-08-27 10:42] VITALS: BP 165/89
[2019-08-27 15:05] VITALS: BP 156/90
--- NOTE | 2019-08-27 17:20 | NUR ---
SW following for discharge planning. Spoke with RN and reviewed chart. Spoke with pt. Pt from home with her 17 year-old daughter. Pt on 4l 02. Pt looking to discharge tomorrow, 08/28/2019. SW requested that a 6 min walk be ordered. Pt has Medicaid. Pt COVID negative and on oral medications. SW to continue following.
--- NOTE | 2019-08-27 18:42 | NUR ---
This RN notified patient that her covid test came back negative and that Dr. Grimaldo wanted her to stay another night. Patient agreed. 10 minutes later patient told RN that she wanted to leave AMA. RN advised against stating risks involved. Patient still wanted to leave AMA and said she would call Dr. Grimaldo in the morning to make an appointment.
--- NOTE | 2019-08-28 08:14 | PDOC ---
Provider Note Provider Note [id number] Justicifation of Admission Dx: Justifications for Admission: Justification of Admission Dx: Yes Acute COPD Exacerbation: Acute COPD Exacerbation SMITHA GREGORIO MD Aug 28, 2019 08:14
--- NOTE | 2019-08-28 13:16 | DS ---
DATE OF DISCHARGE: 08/27/2019 Discharged against medical advice. HOSPITAL SUMMARY: A 53-year-old white female, heavy smoker with known COPD, came in with increasing cough, confusion, weakness and wheezing. Chest x-ray was clear. COVID test was negative. CBC and chemistry profile were unremarkable. Sputum culture showed result is pending with Gram stain showing heavy white blood cells present. She was treated with IV Solu-Medrol and Rocephin, followed by oral Levaquin on the day of dismissal. Blood pressure remained high despite the medicine she was taking and she reported daily morning headaches for at least a few months indicating ongoing high blood pressure. Hydrochlorothiazide and amlodipine were started on the final day of her hospital stay, but she abruptly left against medical advice later in the day. FINAL DIAGNOSES: 1. Acute exacerbation of chronic obstructive pulmonary disease. 2. Acute bacterial bronchitis secondary to chronic tobacco abuse. 3. Hypertension, poorly controlled. OPERATIONS, PROCEDURES, COMPLICATIONS: None. CONSULTATIONS: Dr. Rubio. DISPOSITION: No discharge medications were given as the patient left against medical advice abruptly. If she decides to be seen in the office, she will be evaluated further for her COPD and hypertension needs as she was only taking lisinopril as an outpatient. Vaccination status can be revisited at that time as well. Prognosis is guarded and continued tobacco abuse, was advised against. SMITHA GREGORIO MD DR: JONH/lucía JOB#: [id number] / [id number]
== END 2019-08-27 18:49 | disposition left against medical advice (07) | DRG 871 ==
LOC: ER 08:57 → 6 SOUTH 11:40
PROVIDERS: ADMIT Family Medicine; ATTEND Family Medicine
DX: A41.9 Sepsis, unspecified organism (principal); J96.01 Acute respiratory failure with hypoxia; J44.0 Chronic obstructive pulmonary disease with (acute) lower respiratory infection; J44.1 Chronic obstructive pulmonary disease with (acute) exacerbation; J20.9 Acute bronchitis, unspecified; Z20.828 Contact with and (suspected) exposure to other viral communicable diseases; I10 Essential (primary) hypertension; Z79.899 Other long term (current) drug therapy; E03.9 Hypothyroidism, unspecified; Z88.8 Allergy status to other drugs, medicaments and biological substances
CPT/HCPCS: 36415; 71045; 80053; 81001; 82553; 82728; 83605; 83615; 83735; 83880; 84484; 85025; 85379; 85610; 85730; 87040; 87070; 87205; 93005; 94640; 94760; 96365; 96375; 99406; J0456; J0696; J1100; J2920; J7030; 99291-25; G0378; J7613; U0003-CS

== ENCOUNTER → 2020-04-09 | Outpatient (CLI) | payer OTHER ==
[~2020-04-09] MED LIST changes: +LISI10TA16 PO; -LISI10TA2 PO
--- NOTE | 2020-04-09 17:04 | RAD ---
EXAMINATION: XR KNEE _3 VIEWS_LT CLINICAL HISTORY: Left knee pain TECHNIQUE: XR KNEE _3 VIEWS_LT Number of Images/Views: 3 COMPARISON: Bilateral knee radiographs 03/20/2019 FINDINGS: Mild medial compartment narrowing. No acute fracture. No significant joint effusion. IMPRESSION: No acute osseous abnormality left knee. Electronically signed by: Demond Castellanos DO (04/09/2020 5:01 PM) [id number]
== END ==
LOC: LAB 14:10
PROVIDERS: ATTEND Family Medicine
DX: M25.562 Pain in left knee (principal)
CPT/HCPCS: 73562

== ENCOUNTER → 2020-06-19 | Outpatient (CLI) | payer OTHER | LOC: PF 07:31 | PROVIDERS: ATTEND Anesthesiology Pain Medicine | DX: J44.9 Chronic obstructive pulmonary disease, unspecified (principal) | CPT/HCPCS: 94060; 94640; 94664 ==

== ENCOUNTER → 2020-06-30 | Outpatient (CLI) | payer OTHER ==
--- NOTE | 2020-06-30 10:44 | RAD ---
EXAM: Chest, 2 views. HISTORY: Bronchitis. COMPARISON: None. FINDINGS: 2 views of the chest are obtained. There is no infiltrate, pleural effusion or pneumothorax . The heart is normal in size. IMPRESSION: No acute pulmonary finding. Electronically signed by: Jonelle Begum MD (06/30/2020 10:41 AM) [id number]
== END ==
LOC: RAD 10:22
PROVIDERS: ATTEND Internal Medicine
DX: J20.9 Acute bronchitis, unspecified (principal)
CPT/HCPCS: 71046

== ENCOUNTER → 2020-07-31 | Outpatient (CLI) | payer OTHER ==
--- NOTE | 2020-07-31 15:15 | RAD ---
EXAM: AP, lateral and oblique views of the left knee DATE: 07/31/2020 11:24 AM INDICATION: Reason: Pain from fall in June / . Instructions: / History: COMPARISON: No Prior FINDINGS: No acute fracture or dislocation. Small to moderate left knee joint effusion. Joint spaces are preser isidoro without significant degenerative/proliferative change. IMPRESSION: No acute fracture or dislocation. Small to moderate left knee joint effusion. Electronically signed by: Sunny Davila MD (07/31/2020 3:12 PM) [place]
== END ==
LOC: RAD 11:07
PROVIDERS: ATTEND Internal Medicine
DX: M25.462 Effusion, left knee (principal)
CPT/HCPCS: 73562

== ENCOUNTER → 2020-08-06 | Outpatient (CLI) | payer OTHER ==
--- NOTE | 2020-08-06 20:02 | CARD ---
MR#: [id number] Date of Study: 08/06/2020 Ordering Physician: OLGA ESPINOZA, Referring Physician: OLGA ESPINOZA, Tech: Gayle Valera, [facility] APPROVED REPORT EXAM: Two-dimensional and M-mode echocardiogram with Doppler and color Doppler. Other Information Quality : AverageTechnically LimitedHR: 68bpm Rhythm : NSR INDICATION COPD Dyspnea RISK FACTORS Hypertension Obesity Hyperlipidemia Smoking 2D DIMENSIONS RVDd2.6 (2.9-3.5cm)Left Atrium(2D)3.3 (1.6-4.0cm) IVSd1.1 (0.7-1.1cm)Aortic Root(2D)3.2 (2.0-3.7cm) LVDd3.9 (3.9-5.9cm)LVOT Diameter1.9 (1.8-2.4cm) PWd1.0 (0.7-1.1cm)LVDs2.6 (2.5-4.0cm) FS (%) 32.7 %SV39.6 ml LVEF(%)61.9 (>50%) Aortic Valve AoV Peak Ronan.146.2cm/sAoV VTI26.9cm AO Peak GR.8.6mmHgLVOT Peak Ronan.150.6cm/s AO Mean GR.3mmHgAVA (VMAX)2.95cm2 Mitral Valve MV E Idyjynaj48.2cm/sMV DECEL ZFQF220me MV A Vsrptqtl13.4cm/sE/A Ratio0.7 Pulmonary Valve PV Peak Wawxzjnf91.6cm/s Tricuspid Valve TR P. Lpotrrrt095uf/sTR Peak Gr.32mmHg LEFT VENTRICLE The left ventricle is normal size. There is normal left ventricular wall thickness. The left ventricu lar systolic function is normal and the ejection fraction is within normal range. Estimated ejection fraction 50-55%. There is normal LV segmental wall motion. Transmitral Doppler flow pattern is Grade I-abnormal relaxation pattern. RIGHT VENTRICLE The right ventricle is normal size. There is normal right ventricular wall thickness. The right ventr icular systolic function is normal. ATRIA The left atrium size is normal. The right atrium size is normal. The interatrial septum is intact wit h no evidence for an atrial septal defect or patent foramen ovale as noted on 2-D or Doppler imaging. AORTIC VALVE The aortic valve is grossly normal in appearance on limited images. Doppler and Color Flow revealed n o significant aortic regurgitation. There is no significant aortic valvular stenosis. MITRAL VALVE The mitral valve is normal in structure and function. There is no evidence of mitral valve prolapse. There is no mitral valve stenosis. Doppler and Color Flow revealed no mitral valve regurgitation note d. TRICUSPID VALVE The tricuspid valve is normal in structure and function. Doppler and Color Flow revealed trace tricus pid regurgitation. Estimated PAP 35-40 mmHg. There is no tricuspid valve stenosis. PULMONIC VALVE Doppler and Color Flow revealed no pulmonic valvular regurgitation. There is no pulmonic valvular trung nosis. GREAT VESSELS The aortic root is normal in size. The IVC is normal in size and collapses >50% with inspiration. PERICARDIAL EFFUSION There is no evidence of significant pericardial effusion. Critical Notification Critical Value: No <Conclusion> The left ventricular systolic function is normal and the ejection fraction is within normal range. E stimated ejection fraction 50-55%. There is normal LV segmental wall motion. Doppler and Color Flow revealed trace tricuspid regurgitation. Estimated PAP 35-40 mmHg. Technically difficult study. Signed by : Jordan Butts, Electronically Approved : 08/06/2020 20:01:27
== END ==
LOC: ECHO 09:52
PROVIDERS: ATTEND Internal Medicine
DX: J81.1 Chronic pulmonary edema (principal); I10 Essential (primary) hypertension; R05 Cough
CPT/HCPCS: 93306

== ENCOUNTER 2020-09-10 21:20 | Emergency (ER) | payer OTHER ==
[~2020-09-10] VITALS: Ht 167.6 cm; Wt 104.5 kg
[2020-09-10 22:30] VITALS: BP 174/98
[2020-09-12] MEDS ORDERED: HYDR12.575 PO (01:26)
[2020-09-12] MEDS ORDERED: IPRA4AER IH (01:26)
[2020-09-12] MEDS ORDERED: OMEP40CA7 PO (01:26)
[2020-09-12] MEDS ORDERED: BUPR150T21 PO (01:26)
[2020-09-12] MEDS ORDERED: FURO40TA4 PO (01:26)
== END 2020-09-11 03:48 | disposition left against medical advice (07) ==
LOC: ER 21:20
DX: M79.604 Pain in right leg (principal); M79.605 Pain in left leg; Z53.21 Procedure and treatment not carried out due to patient leaving prior to being seen by health care provider

== ENCOUNTER 2020-09-11 11:14 | Inpatient (IN) | payer OTHER ==
[~2020-09-11] VITALS: Ht 167.6 cm; Wt 100.2 kg
[2020-09-11] MEDS ORDERED: methylPREDNISolone SOD SUCC PF 125 MG/2 ML VIAL. IV ONE (11:30)
[2020-09-11] MEDS ORDERED: IV NORMAL SALINE 1000ML BAG 1,000 ML IV SCH (11:30)
[2020-09-11] MEDS ORDERED: ALBUTEROL SULFATE 2.5 MG/3 ML NEBU. NEB ONE (11:30)
[2020-09-11] MEDS ORDERED: IPRATROPIUM BROMIDE 0.5 MG/2.5 ML NEBU. NEB ONE (11:30)
--- NOTE | 2020-09-11 11:43 | ED.ADGEN ---
Past Medical History Past Medical History: Asthma, COPD, Hypertension, Hypothyroid Additional Past Medical Histor: Thyroid Past Surgical History: No Surgical History, Other Additional Past Surgical Histo: LT EARDRUM REPAIR Smoking Status: Current Every Day Smoker Alcohol Use: None Drug Use: Marijuana General Adult EDM: Chief Complaint: DYSPNEA/RESPIRATORY DISTRESS HPI: HPI: Patient is a 54-year-old female who arrives ambulatory to the emergency [facility] complaining of progressive shortness of air over the past 2 to 3 days. Patient has a history of COPD and reports that she resides with her daughter who recently tested positive for coronavirus. Patient reports over this time. She has had increased work of breathing. Patient also states she has had a dry cough during this time as well. Despite this, she denies any fevers. She further denies any chest pain. She further states she has not been vaccinated against the virus. She is awake, alert and in respiratory distress. Review of Systems: Review of Systems: Constitutional: Reports fatigue. Denies fever or chills. [] Eyes: Denies change in visual acuity. [] HENT: Denies nasal congestion or sore throat. [] Respiratory: Reports cough and shortness of breath. [] Cardiovascular: Denies chest pain or edema. [] GI: Denies abdominal pain, nausea, vomiting, bloody stools or diarrhea. [] : Denies dysuria. [] Musculoskeletal: Denies back pain or joint pain. [] Integument: Denies rash. [] Neurologic: Denies headache, focal weakness or sensory changes. [] Endocrine: Denies polyuria or polydipsia. [] Lymphatic: Denies swollen glands. [] Psychiatric: Denies depression or anxiety. [] Current Medications: Current Medications Medications (Trade) Dose Ordered Sig/Donn Start Time Stop Time Status Last Admin Dose Admin Albuterol Sulfate (Ventolin Neb Soln) 2.5 mg 1X ONCE 09/11/20 11:30 09/11/20 11:31 DC 09/11/20 11:42 2.5 MG Ipratropium [place] (Atrovent) 0.5 mg 1X ONCE 09/11/20 11:30 09/11/20 11:31 DC 09/11/20 11:42 0.5 MG Levofloxacin/ Dextrose 150 ml @ 100 mls/hr 1X ONCE 09/11/20 13:15 09/11/20 14:44 Methylprednisolone Sodium Succinate (SOLU-Medrol 125MG VIAL) 125 mg 1X ONCE 09/11/20 11:30 09/11/20 11:31 DC 09/11/20 11:38 125 MG Ondansetron HCl (Zofran) 4 mg PRN Q8HRS PRN 09/11/20 13:15 09/12/20 13:14 Sodium Chloride 1,000 ml @ 1,000 mls/hr Q1H 09/11/20 11:30 09/11/20 12:29 DC 09/11/20 11:37 1,000 MLS/HR Allergies: Allergies: Allergies Coded Allergies Type Severity Reaction Last Updated Verified amoxicillin Allergy Severe SOB,RASH 02/09/19 Yes clavulanic acid Allergy Unknown 01/30/17 Yes codeine Allergy Unknown 08/25/19 Yes Physical Exam: PE: Constitutional: Patient in visible respiratory distress. Well developed, well nourished otherwise. [] HENT: Normocephalic, atraumatic, bilateral external ears normal, oropharynx moist, no oral exudates, nose normal. [] Eyes: PERRLA, EOMI, conjunctiva normal, no discharge. [] Neck: Normal range of motion, no tenderness, supple, no stridor. [] Cardiovascular:Heart rate regular rhythm, no murmur [] Lungs & Thorax: Decreased breath sounds bilaterally with expiratory wheezes. [] Abdomen: Bowel sounds normal, soft, no tenderness, no masses, no pulsatile masses. [] Skin: Warm, dry, no erythema, no rash. [] Back: No tenderness, no CVA tenderness. [] Extremities: No tenderness, no cyanosis, no clubbing, ROM intact, no edema. [] Neurologic: Alert and oriented X 3, normal motor function, normal sensory function, no focal deficits noted. [] Psychologic: Affect normal, judgement normal, mood normal. [] Current Patient Data: Labs: Laboratory Tests Test 09/11/20 11:34 White Blood Count 7.6 x10^3/uL (4.0-11.0) Red Blood Count 6.35 x10^6/uL (3.50-5.40) H Hemoglobin 18.7 g/dL (12.0-15.5) H Hematocrit 55.1 % (36.0-47.0) H Mean Corpuscular Volume 87 fL (79-100) Mean Corpuscular Hemoglobin 30 pg (25-35) Mean Corpuscular Hemoglobin Concent 34 g/dL (31-37) Red Cell Distribution Width 14.8 % (11.5-14.5) H Platelet Count 297 x10^3/uL (140-400) Neutrophils (%) (Auto) 67 % (31-73) Lymphocytes (%) (Auto) 22 % (24-48) L Monocytes (%) (Auto) 9 % (0-9) Eosinophils (%) (Auto) 2 % (0-3) Basophils (%) (Auto) 1 % (0-3) Neutrophils # (Auto) 5.1 x10^3/uL (1.8-7.7) Lymphocytes # (Auto) 1.6 x10^3/uL (1.0-4.8) Monocytes # (Auto) 0.7 x10^3/uL (0.0-1.1) Eosinophils # (Auto) 0.1 x10^3/uL (0.0-0.7) Basophils # (Auto) 0.1 x10^3/uL (0.0-0.2) Sodium Level 137 mmol/L (136-145) Potassium Level 2.6 mmol/L (3.5-5.1) *L Chloride Level 97 mmol/L (98-107) L Carbon Dioxide Level 35 mmol/L (21-32) H Anion Gap 5 (6-14) L Blood Urea Nitrogen 24 mg/dL (7-20) H Creatinine 1.2 mg/dL (0.6-1.0) H Estimated GFR (Cockcroft-Gault) 46.5 BUN/Creatinine Ratio 20 (6-20) Glucose Level 121 mg/dL (70-99) H Calcium Level 9.9 mg/dL (8.5-10.1) Total Bilirubin 0.9 mg/dL (0.2-1.0) Aspartate Amino Transferase (AST) 40 U/L (15-37) H Alanine Aminotransferase (ALT) 82 U/L (14-59) H Alkaline Phosphatase 90 U/L (46-116) Troponin I Quantitative < 0.017 ng/mL (0.000-0.055) MP-Ekl-W-Type Natriuretic Peptide 33 pg/mL (0-124) Total Protein 8.0 g/dL (6.4-8.2) Albumin 3.7 g/dL (3.4-5.0) Albumin/Globulin Ratio 0.9 (1.0-1.7) L Laboratory Tests 09/11/20 11:34 Laboratory Tests 09/11/20 11:34 Vital Signs: Vital Signs Date Time Temp Pulse Resp B/P (MAP) Pulse Ox O2 Delivery O2 Flow Rate FiO2 09/11/20 11:44 95 Nasal Cannula 5.0 09/11/20 11:15 97.8 96 36 177/109 (112) 97.8 EKG: EKG: [] EKG was obtained at 11:22 AM and revealed a normal sinus rhythm with a ventricular rate of 84 bpm. There are no acute ST/T wave changes present to denote ischemia. This is an otherwise normal EKG Heart Score: C/O Chest Pain: No HEART Score for Chest Pain: HEART Score for Chest Pain Response (Comments) Value History Moderately Suspicious 1 ECG Normal 0 Age < 45 0 Risk Factors 1 or 2 Risk Factors 1 Troponin < Normal Limit 0 Total 2 Risk Factors: Risk Factors: DM, Current or recent (<one month) smoker, HTN, HLP, family history of CAD, obesity. Risk Scores: Score 0 - 3: 2.5% MACE over next 6 weeks - Discharge Home Score 4 - 6: 20.3% MACE over next 6 weeks - Admit for Clinical Observation Score 7 - 10: 72.7% MACE over next 6 weeks - Early Invasive Strategies Radiology/Procedures: Radiology/Procedures: [] Impression: [facility] [id number] [place], [place] [id number] IMAGING REPORT Signed PATIENT: SANDRO ELLIS ACCOUNT: [id number] : 1965 LOCATION: ER AGE: 54 SEX: F EXAM STATUS: REG ER ORD. PHYSICIAN: TREVON BARNARD DO REASON: SOA PROCEDURE: PORTABLE CHEST 1V XR CHEST 1V INDICATION: SOA . COMPARISON STUDY: 06/30/2020. FINDINGS: Lungs: Normal lung volume. Mid lung linear opacities. The tracheobronchial tree and hilar structures are normal. Pleura: No pleural effusion or pneumothorax. Heart and Mediastinum: The cardiomediastinal silhouette is normal. The great vessels of the thorax are normal. Bones and Soft Tissues: The bones and soft tissues are within normal limits. IMPRESSION: Mid lung linear opacities, probably subsegmental atelectasis. No confluent consolidation. Electronically signed by: Latisha Vyas MD (09/11/2020 12:34 PM) [id number] DICTATED and SIGNED BY: LATISHA VYAS MD DATE: 09/11/20 [id number] Course & Med Decision Making: Course & Med Decision Making Pertinent Labs and Imaging studies reviewed. (See chart for details) [] Dragon Disclaimer: Dragon Disclaimer: This electronic medical record was generated, in whole or in part, using a voice recognition dictation system. Departure Departure Impression: Primary Impression: Pneumonia Additional Impressions: Person under investigation for COVID-19 History of COPD Hypokalemia Disposition: ADMITTED INPATIENT Admitting Physician: HIMS Condition: STABLE Referrals: OLGA ESPINOZA MD (PCP) Problem Qualifiers TREVON BARNARD DO Sep 11, 2020 11:43
[2020-09-11 11:45] LABS: BASO # 0.1 x10^3/uL (0.0-0.2); BASO % 1 % (0-3); EOS # 0.1 x10^3/uL (0.0-0.7); EOS % 2 % (0-3); HEMATOCRIT 55.1 % (36.0-47.0); HEMOGLOBIN 18.7 g/dL (12.0-15.5); LYMPH # 1.6 x10^3/uL (1.0-4.8); LYMPH % 22 % (24-48); MEAN CORPUSCULAR HEMOGLOBIN 30 pg (25-35); MEAN CORPUSCULAR HGB CONC 34 g/dL (31-37); MEAN CORPUSCULAR VOLUME 87 fL (79-100); MONO # 0.7 x10^3/uL (0.0-1.1); MONO % 9 % (0-9); NEUT # 5.1 x10^3/uL (1.8-7.7); NEUT % 67 % (31-73); PLATELET COUNT 297 x10^3/uL (140-400); RED BLOOD COUNT 6.35 x10^6/uL (3.50-5.40); RED CELL DISTRIBUTION WIDTH 14.8 % (11.5-14.5); WHITE BLOOD COUNT 7.6 x10^3/uL (4.0-11.0)
[2020-09-11 12:04] LABS: ALBUMIN 3.7 g/dL (3.4-5.0); ALBUMIN/GLOBULIN RATIO 0.9 (1.0-1.7); CALCIUM 9.9 mg/dL (8.5-10.1); CREATININE 1.2 mg/dL (0.6-1.0); GFR 46.5; TOTAL BILIRUBIN 0.9 mg/dL (0.2-1.0)
[2020-09-11 12:08] LABS: POTASSIUM 2.6 mmol/L (3.5-5.1)
--- NOTE | 2020-09-11 12:36 | RAD ---
XR CHEST 1V INDICATION: SOA . COMPARISON STUDY: 06/30/2020. FINDINGS: Lungs: Normal lung volume. Mid lung linear opacities. The tracheobronchial tree and hilar structures are normal. Pleura: No pleural effusion or pneumothorax. Heart and Mediastinum: The cardiomediastinal silhouette is normal. The great vessels of the thorax ar e normal. Bones and Soft Tissues: The bones and soft tissues are within normal limits. IMPRESSION: Mid lung linear opacities, probably subsegmental atelectasis. No confluent consolidation. Electronically signed by: Juan Vyas MD (09/11/2020 12:34 PM) [id number]
[2020-09-11] MEDS ORDERED: ONDANSETRON PF 4 MG/2 ML VIAL. IVP PRN (13:15)
--- NOTE | 2020-09-11 18:02 | NUR ---
IP: Informed pt of negative covid test. Pt verbalized understanding.
[2020-09-11] MEDS ORDERED: ALBUTEROL SULFATE 2.5 MG/3 ML NEBU. INH PRN (18:45)
[2020-09-11] MEDS ORDERED: POTASSIUM CHLORIDE 20 MEQ TABLET.ER. PO ONE (18:45)
--- NOTE | 2020-09-11 19:10 | PDOC1 ---
History and Physical Date of Admission Date of Admission DATE: 09/11/20 TIME: 19:09 Source Source: Chart review, Patient History of Present Illness History of Present Illness MS. Duff is a 54-year-old female admit for dyspnea and cough, she has prior knopwn COPD, she reports prior admit here a few months ago for same, she says he was recently tested for coronavirus and was just told that that test was negative. She was ambulatory, and feels better already, steroids and abx, given, noted amox allergy. 2 days of cough and dyspnea, no sputum. Noted new dry cough and weakness. no pain is not vaccinated for the virus Past Medical History Cardiovascular: HTN Pulmonary: COPD GI: No pertinent hx Psych: No pertinent hx Musculoskeletal: low back pain Rheumatologic: No pertinent hx Endocrine: No pertinent hx Past Surgical History Past Surgical History: No pertinent history Family History Family History: Heart Disease Social History Smoke: <1 pack per day ALCOHOL: none Drugs: None Current Problem List Problem List Problems Medical Problems: (1) History of COPD Status: Acute (2) Hypokalemia Status: Acute (3) Person under investigation for COVID-19 Status: Acute (4) Pneumonia Status: Acute Current Medications Current Medications Current Medications Sodium Chloride 1,000 ml @ 1,000 mls/hr Q1H IV Last administered on 09/11/20at 11:37; Start 09/11/20 at 11:30; Stop 09/11/20 at 12:29; Status DC Albuterol Sulfate (Ventolin Neb Soln) 2.5 mg 1X ONCE NEB Last administered on 09/11/20at 11:42; Start 09/11/20 at 11:30; Stop 09/11/20 at 11:31; Status DC Ipratropium [place] (Atrovent) 0.5 mg 1X ONCE NEB Last administered on 09/11/20at 11:42; Start 09/11/20 at 11:30; Stop 09/11/20 at 11:31; Status DC Methylprednisolone Sodium Succinate (SOLU-Medrol 125MG VIAL) 125 mg 1X ONCE IV Last administered on 09/11/20at 11:38; Start 09/11/20 at 11:30; Stop 09/11/20 at 11:31; Status DC Levofloxacin/ Dextrose 150 ml @ 100 mls/hr 1X ONCE IV Last administered on 09/11/20at 13:48; Start 09/11/20 at 13:15; Stop 09/11/20 at 14:44; Status DC Ondansetron HCl (Zofran) 4 mg PRN Q8HRS PRN IVP NAUSEA/VOMITING; Start 09/11/20 at 13:15; Stop 09/12/20 at 13:14 Albuterol Sulfate (Ventolin Neb Soln) 2.5 mg PRN Q4HRS PRN INH SHORTNESS OF BREATH; Start 09/11/20 at 18:45 Lisinopril (Prinivil) 10 mg DAILY PO ; Start 09/12/20 at 09:00 Cyclobenzaprine HCl (Flexeril) 10 mg TID PO ; Start 09/11/20 at 21:00 Potassium Chloride (Klor-Con) 40 meq 1X ONCE PO ; Start 09/11/20 at 18:45; Stop 09/11/20 at 18:46; Status DC Potassium Chloride (Klor-Con) 20 meq DAILY08 PO ; Start 09/12/20 at 08:00 Prednisone (Prednisone) 40 mg DAILY PO ; Start 09/12/20 at 09:00 Levofloxacin (Levaquin) 750 mg DAILY@1300 PO ; Start 09/12/20 at 13:00 Albuterol/ Ipratropium (Duoneb) 3 ml Q4HRS W/A NEB ; Start 09/11/20 at 22:00 Active Scripts Active Proair Hfa Inhaler (Albuterol Sulfate) 8.5 Gm Hfa.aer.ad 2 Puff INH PRN Q4-6HRS PRN 30 Days Orphenadrine Citrate 100 Mg Tablet.er 1 Tab PO BID Reported Lisinopril 10 Mg Tablet 10 Mg PO DAILY Allergies Allergies: Coded Allergies: amoxicillin (Verified Allergy, Severe, SOB,RASH, 02/09/19) clavulanic acid (Verified Allergy, Unknown, 01/30/17) codeine (Verified Allergy, Unknown, 08/25/19) ROS General: YES: Chills, Fatigue PSYCHOLOGICAL ROS: No: Anxiety, Behavioral Disorder, Concentration difficultie, Decreased libido, Depression, Hallucinations, Hostility, Irritablity, Memory difficulties, Mood Swings, Obsessive thoughts, Physical abuse, Sexual abuse, Sleep disturbances, Suicidal ideation, Other Eyes: No Blurry vision, No Decreased vision, No Double vision, No Dry eyes, No Excessive tearing, No Eye Pain, No Itchy Eyes, No Loss of vision, No Photo phobia, No Scotomata, No Uses contacts, No Uses glasses, No Other HEENT: No: Heacaches, Visual Changes, Hearing change, Nasal congestion, Nasal discharge, Oral lesions, Sinus pain, Sore Throat, Epistaxis, Sneezing, Snoring, Tinnitus, Vertigo, Vocal changes, Other Respiratory: YES: Cough, SOB with excertion, Tachypnea; No: Hemoptysis, Orthopnea, Pleuritic Pain, Shortness of breath, Sputum Changes, Stridor, Wheezing, Other Cardiovascular: No Chest Pain, No Palpitations, No Orthopnea, No Paroxysmal Noc. Dyspnea, No Edema, No Lt Headedness, No Other Gastrointestinal: Yes Nausea; No Vomiting, No Abdominal Pain, No Diarrhea, No Constipation, No Melena, No Hematochezia, No Other Genitourinary: No Dysuria, No Frequency, No Incontinence, No Hematuria, No Retention, No Discharge, No Urgency, No Pain, No Flank Pain, No Other, No , No , No , No , No , No , No Musculoskeletal: No Gait Disturbance, No Joint Pain, No Joint Stiffness, No Joint Swelling, No Muscle Pain, No Muscular Weakness, No Pain In:, No Swelling In:, No Other Neurological: No Behavorial Changes, No Bowel/Bladder ControlChng, No Confusion, No Dizziness, No Gait Disturbance, No Headaches, No Impaired Coord/balance, No Memory Loss, No Numbness/Tingling, No Seizures, No Speech Problems, No Tremors, No Visual Changes, No Weakness, No Other Skin: Yes Dry Skin; No Eczema, No Hair Changes, No Lumps, No Mole Changes, No Mottling, No Nail Changes, No Pruritus, No Rash, No Skin Lesion Changes, No Other, No Acne Physical Exam General: Alert, Cooperative, mild distress HEENT: EOMI Lungs: Other (rales, ,limited vol) Heart: no gallops Abdomen: Normal bowel sounds, Soft Extremities: No cyanosis, Other Skin: No rashes, Other Neuro: Normal speech, Sensation intact Psych/Mental Status: Mental status NL, Mood NL Vitals Vitals Vital Signs Date Time Temp Pulse Resp B/P (MAP) Pulse Ox O2 Delivery O2 Flow Rate FiO2 09/11/20 11:44 95 Nasal Cannula 5.0 09/11/20 11:15 97.8 96 36 177/109 (112) 97.8 Labs Labs Laboratory Tests Test 09/11/20 11:34 09/11/20 11:43 White Blood Count 7.6 x10^3/uL (4.0-11.0) Red Blood Count 6.35 x10^6/uL (3.50-5.40) Hemoglobin 18.7 g/dL (12.0-15.5) Hematocrit 55.1 % (36.0-47.0) Mean Corpuscular Volume 87 fL (79-100) Mean Corpuscular Hemoglobin 30 pg (25-35) Mean Corpuscular Hemoglobin Concent 34 g/dL (31-37) Red Cell Distribution Width 14.8 % (11.5-14.5) Platelet Count 297 x10^3/uL (140-400) Neutrophils (%) (Auto) 67 % (31-73) Lymphocytes (%) (Auto) 22 % (24-48) Monocytes (%) (Auto) 9 % (0-9) Eosinophils (%) (Auto) 2 % (0-3) Basophils (%) (Auto) 1 % (0-3) Neutrophils # (Auto) 5.1 x10^3/uL (1.8-7.7) Lymphocytes # (Auto) 1.6 x10^3/uL (1.0-4.8) Monocytes # (Auto) 0.7 x10^3/uL (0.0-1.1) Eosinophils # (Auto) 0.1 x10^3/uL (0.0-0.7) Basophils # (Auto) 0.1 x10^3/uL (0.0-0.2) Sodium Level 137 mmol/L (136-145) Potassium Level 2.6 mmol/L (3.5-5.1) Chloride Level 97 mmol/L (98-107) Carbon Dioxide Level 35 mmol/L (21-32) Anion Gap 5 (6-14) Blood Urea Nitrogen 24 mg/dL (7-20) Creatinine 1.2 mg/dL (0.6-1.0) Estimated GFR (Cockcroft-Gault) 46.5 BUN/Creatinine Ratio 20 (6-20) Glucose Level 121 mg/dL (70-99) Calcium Level 9.9 mg/dL (8.5-10.1) Total Bilirubin 0.9 mg/dL (0.2-1.0) Aspartate Amino Transf (AST/SGOT) 40 U/L (15-37) Alanine Aminotransferase (ALT/SGPT) 82 U/L (14-59) Alkaline Phosphatase 90 U/L (46-116) Troponin I Quantitative < 0.017 ng/mL (0.000-0.055) XQ-Iou-K-Type Natriuretic Peptide 33 pg/mL (0-124) Total Protein 8.0 g/dL (6.4-8.2) Albumin 3.7 g/dL (3.4-5.0) Albumin/Globulin Ratio 0.9 (1.0-1.7) SARS-CoV-2 RNA (DEISI) Negative (Negative) Laboratory Tests Test 09/11/20 11:34 09/11/20 11:43 White Blood Count 7.6 x10^3/uL (4.0-11.0) Red Blood Count 6.35 x10^6/uL (3.50-5.40) Hemoglobin 18.7 g/dL (12.0-15.5) Hematocrit 55.1 % (36.0-47.0) Mean Corpuscular Volume 87 fL (79-100) Mean Corpuscular Hemoglobin 30 pg (25-35) Mean Corpuscular Hemoglobin Concent 34 g/dL (31-37) Red Cell Distribution Width 14.8 % (11.5-14.5) Platelet Count 297 x10^3/uL (140-400) Neutrophils (%) (Auto) 67 % (31-73) Lymphocytes (%) (Auto) 22 % (24-48) Monocytes (%) (Auto) 9 % (0-9) Eosinophils (%) (Auto) 2 % (0-3) Basophils (%) (Auto) 1 % (0-3) Neutrophils # (Auto) 5.1 x10^3/uL (1.8-7.7) Lymphocytes # (Auto) 1.6 x10^3/uL (1.0-4.8) Monocytes # (Auto) 0.7 x10^3/uL (0.0-1.1) Eosinophils # (Auto) 0.1 x10^3/uL (0.0-0.7) Basophils # (Auto) 0.1 x10^3/uL (0.0-0.2) Sodium Level 137 mmol/L (136-145) Potassium Level 2.6 mmol/L (3.5-5.1) Chloride Level 97 mmol/L (98-107) Carbon Dioxide Level 35 mmol/L (21-32) Anion Gap 5 (6-14) Blood Urea Nitrogen 24 mg/dL (7-20) Creatinine 1.2 mg/dL (0.6-1.0) Estimated GFR (Cockcroft-Gault) 46.5 BUN/Creatinine Ratio 20 (6-20) Glucose Level 121 mg/dL (70-99) Calcium Level 9.9 mg/dL (8.5-10.1) Total Bilirubin 0.9 mg/dL (0.2-1.0) Aspartate Amino Transf (AST/SGOT) 40 U/L (15-37) Alanine Aminotransferase (ALT/SGPT) 82 U/L (14-59) Alkaline Phosphatase 90 U/L (46-116) Troponin I Quantitative < 0.017 ng/mL (0.000-0.055) [place]-Ehf-M-Type Natriuretic Peptide 33 pg/mL (0-124) Total Protein 8.0 g/dL (6.4-8.2) Albumin 3.7 g/dL (3.4-5.0) Albumin/Globulin Ratio 0.9 (1.0-1.7) SARS-CoV-2 RNA (DEISI) Negative (Negative) VTE Prophylaxis Ordered VTE Prophylaxis Devices: No VTE Pharmacological Prophylaxi: Yes Assessment/Plan Assessment/Plan 1. Acute hypoxemic respiratory failure 2. chronic obstructive pulmonary disease, w/ acute bronchitis, ruled out COVID- 19. 3.. Tobacco habituation. 4. Hypertension. 5. Hypothyroidism. Justifications for Admission Other Justification ABHIJEET FISH MD Sep 11, 2020 19:10
[2020-09-11] MEDS: CYCLOBENZAPRINE 10 MG TABLET. PO SCH (21:16)
[2020-09-11] MEDS: ENOXAPARIN 40 MG/0.4 ML SYRINGE. SQ SCH (21:17)
[2020-09-11] MEDS: IPRATRPIUM/ALBUTEROL 0.5/2.5MG 3 ML NEBU. NEB SCH (22:00)
[2020-09-11 23:00] VITALS: BP 139/96
[2020-09-12] MEDS ORDERED: FURO40TA4 PO (01:26)
[2020-09-12] MEDS ORDERED: OMEP40CA7 PO (01:26)
[2020-09-12] MEDS ORDERED: HYDR12.575 PO (01:26)
[2020-09-12] MEDS ORDERED: IPRA4AER IH (01:26)
[2020-09-12] MEDS ORDERED: BUPR150T21 PO (01:26)
[2020-09-12 03:00] VITALS: BP 147/80
[2020-09-12] MEDS ORDERED: ALBUTEROL SULFATE 8GM INHALER. INH PRN (05:30)
[2020-09-12] MEDS: IPRATRPIUM/ALBUTEROL 0.5/2.5MG 3 ML NEBU. NEB SCH ×4 (06:20→14:00)
[2020-09-12 06:49] LABS: BASO # 0.1 x10^3/uL (0.0-0.2); BASO % 1 % (0-3); EOS % 0 % (0-3); HEMATOCRIT 53.3 % (36.0-47.0); HEMOGLOBIN 17.4 g/dL (12.0-15.5); LYMPH # 1.1 x10^3/uL (1.0-4.8); LYMPH % 8 % (24-48); MEAN CORPUSCULAR HEMOGLOBIN 29 pg (25-35); MEAN CORPUSCULAR HGB CONC 33 g/dL (31-37); MEAN CORPUSCULAR VOLUME 88 fL (79-100); MONO # 0.8 x10^3/uL (0.0-1.1); MONO % 5 % (0-9); NEUT # 12.9 x10^3/uL (1.8-7.7); NEUT % 87 % (31-73); PLATELET COUNT 306 x10^3/uL (140-400); RED BLOOD COUNT 6.06 x10^6/uL (3.50-5.40); RED CELL DISTRIBUTION WIDTH 14.8 % (11.5-14.5); WHITE BLOOD COUNT 14.9 x10^3/uL (4.0-11.0)
[2020-09-12 06:58] LABS: CALCIUM 9.6 mg/dL (8.5-10.1); CREATININE 1.1 mg/dL (0.6-1.0); GFR 51.4; POTASSIUM 3.2 mmol/L (3.5-5.1)
[2020-09-12 07:00] VITALS: BP 138/75
[2020-09-12 08:31] LABS: % BANDS 7 % (0-9); % LYMPHS 7 % (24-48); % MONOS 5 % (0-10); % SEGS 81 % (35-66)
[2020-09-12 08:32] LABS: PLT ESTIMATE ADEQUATE (ADEQUATE)
[2020-09-12] MEDS: CYCLOBENZAPRINE 10 MG TABLET. PO SCH ×3 (08:34→20:29)
[2020-09-12] MEDS: predniSONE 20 MG TABLET PO SCH (08:34)
[2020-09-12] MEDS: POTASSIUM CHLORIDE 20 MEQ TABLET.ER. PO SCH (08:34)
[2020-09-12] MEDS: LISINOPRIL 10 MG TABLET PO SCH (09:09)
--- NOTE | 2020-09-12 09:19 | PDOC ---
PULMONARY PROGRESS NOTES DATE: 09/12/20 TIME: 09:19 Vitals Vital Signs Date Time Temp Pulse Resp B/P (MAP) Pulse Ox O2 Delivery O2 Flow Rate FiO2 09/12/20 09:09 73 130/75 09/12/20 07:32 Nasal Cannula 4.0 09/12/20 06:21 96 09/12/20 03:00 98.9 18 98.9 General: Alert Cardiovascular: S1, S2 Extremities: No Edema Labs Laboratory Tests Test 09/11/20 11:34 09/11/20 11:43 09/12/20 06:10 White Blood Count 7.6 x10^3/uL (4.0-11.0) 14.9 x10^3/uL (4.0-11.0) Red Blood Count 6.35 x10^6/uL (3.50-5.40) 6.06 x10^6/uL (3.50-5.40) Hemoglobin 18.7 g/dL (12.0-15.5) 17.4 g/dL (12.0-15.5) Hematocrit 55.1 % (36.0-47.0) 53.3 % (36.0-47.0) Mean Corpuscular Volume 87 fL (79-100) 88 fL (79-100) Mean Corpuscular Hemoglobin 30 pg (25-35) 29 pg (25-35) Mean Corpuscular Hemoglobin Concent 34 g/dL (31-37) 33 g/dL (31-37) Red Cell Distribution Width 14.8 % (11.5-14.5) 14.8 % (11.5-14.5) Platelet Count 297 x10^3/uL (140-400) 306 x10^3/uL (140-400) Neutrophils (%) (Auto) 67 % (31-73) 87 % (31-73) Lymphocytes (%) (Auto) 22 % (24-48) 8 % (24-48) Monocytes (%) (Auto) 9 % (0-9) 5 % (0-9) Eosinophils (%) (Auto) 2 % (0-3) 0 % (0-3) Basophils (%) (Auto) 1 % (0-3) 1 % (0-3) Neutrophils # (Auto) 5.1 x10^3/uL (1.8-7.7) 12.9 x10^3/uL (1.8-7.7) Lymphocytes # (Auto) 1.6 x10^3/uL (1.0-4.8) 1.1 x10^3/uL (1.0-4.8) Monocytes # (Auto) 0.7 x10^3/uL (0.0-1.1) 0.8 x10^3/uL (0.0-1.1) Eosinophils # (Auto) 0.1 x10^3/uL (0.0-0.7) 0.0 x10^3/uL (0.0-0.7) Basophils # (Auto) 0.1 x10^3/uL (0.0-0.2) 0.1 x10^3/uL (0.0-0.2) Sodium Level 137 mmol/L (136-145) 138 mmol/L (136-145) Potassium Level 2.6 mmol/L (3.5-5.1) 3.2 mmol/L (3.5-5.1) Chloride Level 97 mmol/L (98-107) 97 mmol/L (98-107) Carbon Dioxide Level 35 mmol/L (21-32) 35 mmol/L (21-32) Anion Gap 5 (6-14) 6 (6-14) Blood Urea Nitrogen 24 mg/dL (7-20) 27 mg/dL (7-20) Creatinine 1.2 mg/dL (0.6-1.0) 1.1 mg/dL (0.6-1.0) Estimated GFR (Cockcroft-Gault) 46.5 51.4 BUN/Creatinine Ratio 20 (6-20) Glucose Level 121 mg/dL (70-99) 129 mg/dL (70-99) Calcium Level 9.9 mg/dL (8.5-10.1) 9.6 mg/dL (8.5-10.1) Total Bilirubin 0.9 mg/dL (0.2-1.0) Aspartate Amino Transf (AST/SGOT) 40 U/L (15-37) Alanine Aminotransferase (ALT/SGPT) 82 U/L (14-59) Alkaline Phosphatase 90 U/L (46-116) Troponin I Quantitative < 0.017 ng/mL (0.000-0.055) BK-Bkf-E-Type Natriuretic Peptide 33 pg/mL (0-124) Total Protein 8.0 g/dL (6.4-8.2) Albumin 3.7 g/dL (3.4-5.0) Albumin/Globulin Ratio 0.9 (1.0-1.7) SARS-CoV-2 RNA (DEISI) Negative (Negative) Segmented Neutrophils % 81 % (35-66) Band Neutrophils % 7 % (0-9) Lymphocytes % 7 % (24-48) Monocytes % 5 % (0-10) Platelet Estimate Adequate (ADEQUATE) Magnesium Level 2.1 mg/dL (1.8-2.4) Laboratory Tests Test 09/11/20 11:34 09/11/20 11:43 09/12/20 06:10 White Blood Count 7.6 x10^3/uL (4.0-11.0) 14.9 x10^3/uL (4.0-11.0) Red Blood Count 6.35 x10^6/uL (3.50-5.40) 6.06 x10^6/uL (3.50-5.40) Hemoglobin 18.7 g/dL (12.0-15.5) 17.4 g/dL (12.0-15.5) Hematocrit 55.1 % (36.0-47.0) 53.3 % (36.0-47.0) Mean Corpuscular Volume 87 fL (79-100) 88 fL (79-100) Mean Corpuscular Hemoglobin 30 pg (25-35) 29 pg (25-35) Mean Corpuscular Hemoglobin Concent 34 g/dL (31-37) 33 g/dL (31-37) Red Cell Distribution Width 14.8 % (11.5-14.5) 14.8 % (11.5-14.5) Platelet Count 297 x10^3/uL (140-400) 306 x10^3/uL (140-400) Neutrophils (%) (Auto) 67 % (31-73) 87 % (31-73) Lymphocytes (%) (Auto) 22 % (24-48) 8 % (24-48) Monocytes (%) (Auto) 9 % (0-9) 5 % (0-9) Eosinophils (%) (Auto) 2 % (0-3) 0 % (0-3) Basophils (%) (Auto) 1 % (0-3) 1 % (0-3) Neutrophils # (Auto) 5.1 x10^3/uL (1.8-7.7) 12.9 x10^3/uL (1.8-7.7) Lymphocytes # (Auto) 1.6 x10^3/uL (1.0-4.8) 1.1 x10^3/uL (1.0-4.8) Monocytes # (Auto) 0.7 x10^3/uL (0.0-1.1) 0.8 x10^3/uL (0.0-1.1) Eosinophils # (Auto) 0.1 x10^3/uL (0.0-0.7) 0.0 x10^3/uL (0.0-0.7) Basophils # (Auto) 0.1 x10^3/uL (0.0-0.2) 0.1 x10^3/uL (0.0-0.2) Sodium Level 137 mmol/L (136-145) 138 mmol/L (136-145) Potassium Level 2.6 mmol/L (3.5-5.1) 3.2 mmol/L (3.5-5.1) Chloride Level 97 mmol/L (98-107) 97 mmol/L (98-107) Carbon Dioxide Level 35 mmol/L (21-32) 35 mmol/L (21-32) Anion Gap 5 (6-14) 6 (6-14) Blood Urea Nitrogen 24 mg/dL (7-20) 27 mg/dL (7-20) Creatinine 1.2 mg/dL (0.6-1.0) 1.1 mg/dL (0.6-1.0) Estimated GFR (Cockcroft-Gault) 46.5 51.4 BUN/Creatinine Ratio 20 (6-20) Glucose Level 121 mg/dL (70-99) 129 mg/dL (70-99) Calcium Level 9.9 mg/dL (8.5-10.1) 9.6 mg/dL (8.5-10.1) Total Bilirubin 0.9 mg/dL (0.2-1.0) Aspartate Amino Transf (AST/SGOT) 40 U/L (15-37) Alanine Aminotransferase (ALT/SGPT) 82 U/L (14-59) Alkaline Phosphatase 90 U/L (46-116) Troponin I Quantitative < 0.017 ng/mL (0.000-0.055) CL-Bod-D-Type Natriuretic Peptide 33 pg/mL (0-124) Total Protein 8.0 g/dL (6.4-8.2) Albumin 3.7 g/dL (3.4-5.0) Albumin/Globulin Ratio 0.9 (1.0-1.7) SARS-CoV-2 RNA (DEISI) Negative (Negative) Segmented Neutrophils % 81 % (35-66) Band Neutrophils % 7 % (0-9) Lymphocytes % 7 % (24-48) Monocytes % 5 % (0-10) Platelet Estimate Adequate (ADEQUATE) Magnesium Level 2.1 mg/dL (1.8-2.4) Medications Active Scripts Medications Dose Route/Sig Max Daily Dose Days Date Category Furosemide 40 Mg Tablet 40 Mg PO DAILY 09/12/20 Reported Omeprazole 40 Mg Capsule.dr 40 Mg PO DAILY 09/12/20 Reported Hydrochlorothiazide Capsule (Hydrochlorothiazide) 12.5 Mg Capsule 12.5 Mg PO DAILY 09/12/20 Reported Bupropion Xl (Bupropion Hcl) 150 Mg Tab.er.24h 150 Mg PO BID 09/12/20 Reported Combivent Respimat Inhal (Ipratropium/Albuterol Sulfate) 4 Gm Aer.w.adap 2 Inh IH QID 09/12/20 Reported Proair Hfa Inhaler (Albuterol Sulfate) 8.5 Gm Hfa.aer.ad 2 Puff INH PRN Q4-6HRS PRN 30 08/29/18 Rx Orphenadrine Citrate 100 Mg Tablet.er 1 Tab PO BID 01/30/17 Rx Impression . Full consult dictated Acute exacerbation of COPD Repeat SARS-CoV-2 testing Maintain in isolation DEISY MCGARRY MD Sep 12, 2020 09:19
--- NOTE | 2020-09-12 10:23 | NUR ---
SW following. Discussed with RN, pt from home with daughter, 4L (does not use oxygen at home), cardiac diet. Pulmonology following. Pt's daughter recently tested positive for COVID however pt is COVID negative. Per Dr. Zurita pt could potentially still have COVID but is being tested too early since the daughter just recently was diagnosed. Pt staying on COVID isolation precautions. Pt will need a 6 minute walk prior to discharge. RN advised no SW needs at this time. SW will continue to follow.
[2020-09-12 11:21] VITALS: BP 135/72
--- NOTE | 2020-09-12 13:06 | CONS ---
DATE OF CONSULTATION: 09/12/2020 ATTENDING PHYSICIAN: Dr. Ana Paula Cobos. REASON FOR CONSULTATION: The patient is seen in pulmonary consultation at the request of Dr. Cobos for increasing shortness of air, underlying COPD, tobacco dependence. HISTORY OF PRESENT ILLNESS: The patient is a 54-year-old that normally does not wear oxygen at home. She has not been vaccinated for COVID-19. She was exposed to her daughter last Tuesday, approximately 5-6 days ago. She reports increasing shortness of breath. She felt that this could be related to COVID-19, possibly in a panic attack and increased anxiety. She is currently on 4 liters of oxygen supplementation. I was asked to see her in consultation. She had a chest x-ray which revealed no significant types of infiltrate, some atelectasis. White count was normal upon admission. She did not have a lymphopenia. Serology so far for [id number]-1 nuclear amplification test was negative. PAST MEDICAL HISTORY: The patient normally sees Dr. Scott/Dr. Gaming. She has a history of hypertension, COPD. PAST SURGICAL HISTORY: None. FAMILY HISTORY: Heart disease. SOCIAL HISTORY: She continues to smoke. REVIEW OF SYSTEMS: As indicated above, otherwise a 10-point system was reviewed and negative. ALLERGIES: AUGMENTIN AND CODEINE. MEDICATIONS: Current medication list was reviewed. Home medication list was reviewed. The patient is currently receiving DVT prophylaxis with Lovenox, her home meds and nebulized treatment. PHYSICAL EXAMINATION: VITAL SIGNS: Stable. O2 saturation greater than 92%, currently on 4 liters. HEENT: Eyes, the sclerae were nonicteric. NECK: Jugular venous distention was not elevated. No lymphadenopathy. CHEST: Full expansion. LUNGS: Some mild expiratory wheeze. CARDIOVASCULAR: Regular rate and rhythm with S1 and S2. No S3. ABDOMEN: Soft, nontender. EXTREMITIES: No clubbing, cyanosis or edema. LABORATORY DATA: Labs were reviewed as indicated above. [id number]-5 was negative. IMPRESSION AND PLAN: 1. Acute exacerbation of chronic obstructive pulmonary disease. 2. Acute hypoxemic respiratory failure secondary to above. 3. Negative QJCP-QCOFV-5 testing, this may be falsely negative results, patient was exposed, less than a week ago, recommend repeating test in the a.m. 4. Continue current steroids and antibiotics. 5. Nebulized treatments. 6. Continue isolation for a person under investigation. I do appreciate the privilege in sharing in the patient's care. JASMINE/[facility] [place] DR: John TID: [id number]
[2020-09-12 15:12] VITALS: BP 112/59
--- NOTE | 2020-09-12 16:02 | PDOC ---
[employer] PROGRESS NOTE Date of Service DOS: DATE: 09/12/20 TIME: 15:59 Chief Complaint Chief Complaint Acute hypoxemic respiratory failure chronic obstructive pulmonary disease, w/ acute bronchitis, - still may have COVID-19. Tobacco abuse disorder Hypertension. Hypothyroidism. hypokalemia weakness, debility, History of Present Illness History of Present Illness neg test yesterday for covid, Dr. Zurita wants retested, and I agree, hypoxia with mild LFT, and lymphopenia no pain, feels comfortable still on 4 liters NC, treated as COPD AE Vitals/I&O Vitals/I&O: Vital Signs Date Time Temp Pulse Resp B/P (MAP) Pulse Ox O2 Delivery O2 Flow Rate FiO2 09/12/20 15:12 97.0 69 18 112/59 (76) 94 Nasal Cannula 4.0 97.0 I & O 09/11/20 09/11/20 09/12/20 15:00 23:00 07:00 Output Total 0 ml Balance 0 ml Physical Exam Physical Exam: a little limited exam, still pos COVID General: Alert, Oriented X3, Cooperative, mild distress Heart: Regular rate Lungs: Other (end rales, ) Extremities: Other Skin: No rashes, Other Labs Labs: Laboratory Tests Test 09/12/20 06:10 09/12/20 12:55 White Blood Count 14.9 x10^3/uL (4.0-11.0) Red Blood Count 6.06 x10^6/uL (3.50-5.40) Hemoglobin 17.4 g/dL (12.0-15.5) Hematocrit 53.3 % (36.0-47.0) Mean Corpuscular Volume 88 fL (79-100) Mean Corpuscular Hemoglobin 29 pg (25-35) Mean Corpuscular Hemoglobin Concent 33 g/dL (31-37) Red Cell Distribution Width 14.8 % (11.5-14.5) Platelet Count 306 x10^3/uL (140-400) Neutrophils (%) (Auto) 87 % (31-73) Lymphocytes (%) (Auto) 8 % (24-48) Monocytes (%) (Auto) 5 % (0-9) Eosinophils (%) (Auto) 0 % (0-3) Basophils (%) (Auto) 1 % (0-3) Neutrophils # (Auto) 12.9 x10^3/uL (1.8-7.7) Lymphocytes # (Auto) 1.1 x10^3/uL (1.0-4.8) Monocytes # (Auto) 0.8 x10^3/uL (0.0-1.1) Eosinophils # (Auto) 0.0 x10^3/uL (0.0-0.7) Basophils # (Auto) 0.1 x10^3/uL (0.0-0.2) Segmented Neutrophils % 81 % (35-66) Band Neutrophils % 7 % (0-9) Lymphocytes % 7 % (24-48) Monocytes % 5 % (0-10) Platelet Estimate Adequate (ADEQUATE) Sodium Level 138 mmol/L (136-145) Potassium Level 3.2 mmol/L (3.5-5.1) Chloride Level 97 mmol/L (98-107) Carbon Dioxide Level 35 mmol/L (21-32) Anion Gap 6 (6-14) Blood Urea Nitrogen 27 mg/dL (7-20) Creatinine 1.1 mg/dL (0.6-1.0) Estimated GFR (Cockcroft-Gault) 51.4 Glucose Level 129 mg/dL (70-99) Calcium Level 9.6 mg/dL (8.5-10.1) Magnesium Level 2.1 mg/dL (1.8-2.4) SARS-CoV-2 Antigen (Rapid) Negative (NEGATIVE) Review of Systems Review of Systems: feels better cough better Assessment and Plan Assessmemt and Plan Problems Medical Problems: (1) History of COPD Status: Acute (2) Hypokalemia Status: Acute (3) Person under investigation for COVID-19 Status: Acute (4) Pneumonia Status: Acute Comment Review of Relevant I have reviewed the following items dipak (where applicable) has been applied. Medications: Current Medications Medications (Trade) Dose Ordered Sig/Donn Route PRN Reason Start Time Stop Time Status Last Admin Dose Admin Lisinopril (Prinivil) 10 mg DAILY PO 09/12/20 09:00 09/12/20 09:09 Cyclobenzaprine HCl (Flexeril) 10 mg TID PO 09/11/20 21:00 09/12/20 13:09 Potassium Chloride (Klor-Con) 40 meq 1X ONCE PO 09/11/20 18:45 09/11/20 18:46 DC 09/11/20 21:16 Potassium Chloride (Klor-Con) 20 meq DAILY08 PO 09/12/20 08:00 09/12/20 08:34 Prednisone (Prednisone) 40 mg DAILY PO 09/12/20 09:00 09/12/20 08:34 Albuterol/ Ipratropium (Duoneb) 3 ml Q4HRS W/A NEB 09/11/20 22:00 09/12/20 10:00 Enoxaparin Sodium (Lovenox 40mg Syringe) 40 mg Q24H SQ 09/11/20 21:00 09/11/20 21:17 Levofloxacin (Levaquin) 500 mg DAILY@1300 PO 09/12/20 13:00 09/12/20 13:09 Justifications for Admission Other Justification ABHIJEET FISH MD Sep 12, 2020 16:02
[2020-09-12 19:00] VITALS: BP 127/65
[2020-09-12] MEDS: LACTOBACILLUS RHAMNOSUS GG 1 CAPSULE. PO SCH (20:29)
[2020-09-12] MEDS: ENOXAPARIN 40 MG/0.4 ML SYRINGE. SQ SCH (20:30)
[2020-09-12 23:00] VITALS: BP 115/64
[2020-09-13 03:00] VITALS: BP 108/46
[2020-09-13 06:52] LABS: ALBUMIN/GLOBULIN RATIO 0.9 (1.0-1.7); CALCIUM 9.1 mg/dL (8.5-10.1); GFR 57.4; POTASSIUM 3.1 mmol/L (3.5-5.1); TOTAL BILIRUBIN 0.4 mg/dL (0.2-1.0); TOTAL PROTEIN 6.5 g/dL (6.4-8.2)
[2020-09-13 07:00] VITALS: BP 125/72
[2020-09-13] MEDS: predniSONE 20 MG TABLET PO SCH (08:32)
[2020-09-13] MEDS: POTASSIUM CHLORIDE 20 MEQ TABLET.ER. PO SCH (08:32)
[2020-09-13] MEDS: LACTOBACILLUS RHAMNOSUS GG 1 CAPSULE. PO SCH (08:32)
[2020-09-13] MEDS: CYCLOBENZAPRINE 10 MG TABLET. PO SCH ×2 (08:32→13:39)
[2020-09-13] MEDS: LISINOPRIL 10 MG TABLET PO SCH (08:33)
--- NOTE | 2020-09-13 09:24 | PDOC ---
PULMONARY PROGRESS NOTES DATE: 09/13/20 TIME: 09:22 Subjective Patient feels better, wishes to be discharged Vitals Vital Signs Date Time Temp Pulse Resp B/P (MAP) Pulse Ox O2 Delivery O2 Flow Rate FiO2 09/13/20 08:33 79 125/72 09/13/20 07:00 97.7 20 96 Nasal Cannula 2.0 97.7 ROS: No Nausea, No Chest Pain, No Abdominal Pain General: Alert Lungs: Wheezing Cardiovascular: S1, S2 Abdomen: Soft, Non-tender Neuro Exam: Alert Extremities: No Edema Labs Laboratory Tests Test 09/11/20 11:34 09/11/20 11:43 09/12/20 06:10 09/12/20 12:55 White Blood Count 7.6 x10^3/uL (4.0-11.0) 14.9 x10^3/uL (4.0-11.0) Red Blood Count 6.35 x10^6/uL (3.50-5.40) 6.06 x10^6/uL (3.50-5.40) Hemoglobin 18.7 g/dL (12.0-15.5) 17.4 g/dL (12.0-15.5) Hematocrit 55.1 % (36.0-47.0) 53.3 % (36.0-47.0) Mean Corpuscular Volume 87 fL (79-100) 88 fL (79-100) Mean Corpuscular Hemoglobin 30 pg (25-35) 29 pg (25-35) Mean Corpuscular Hemoglobin Concent 34 g/dL (31-37) 33 g/dL (31-37) Red Cell Distribution Width 14.8 % (11.5-14.5) 14.8 % (11.5-14.5) Platelet Count 297 x10^3/uL (140-400) 306 x10^3/uL (140-400) Neutrophils (%) (Auto) 67 % (31-73) 87 % (31-73) Lymphocytes (%) (Auto) 22 % (24-48) 8 % (24-48) Monocytes (%) (Auto) 9 % (0-9) 5 % (0-9) Eosinophils (%) (Auto) 2 % (0-3) 0 % (0-3) Basophils (%) (Auto) 1 % (0-3) 1 % (0-3) Neutrophils # (Auto) 5.1 x10^3/uL (1.8-7.7) 12.9 x10^3/uL (1.8-7.7) Lymphocytes # (Auto) 1.6 x10^3/uL (1.0-4.8) 1.1 x10^3/uL (1.0-4.8) Monocytes # (Auto) 0.7 x10^3/uL (0.0-1.1) 0.8 x10^3/uL (0.0-1.1) Eosinophils # (Auto) 0.1 x10^3/uL (0.0-0.7) 0.0 x10^3/uL (0.0-0.7) Basophils # (Auto) 0.1 x10^3/uL (0.0-0.2) 0.1 x10^3/uL (0.0-0.2) Sodium Level 137 mmol/L (136-145) 138 mmol/L (136-145) Potassium Level 2.6 mmol/L (3.5-5.1) 3.2 mmol/L (3.5-5.1) Chloride Level 97 mmol/L (98-107) 97 mmol/L (98-107) Carbon Dioxide Level 35 mmol/L (21-32) 35 mmol/L (21-32) Anion Gap 5 (6-14) 6 (6-14) Blood Urea Nitrogen 24 mg/dL (7-20) 27 mg/dL (7-20) Creatinine 1.2 mg/dL (0.6-1.0) 1.1 mg/dL (0.6-1.0) Estimated GFR (Cockcroft-Gault) 46.5 51.4 BUN/Creatinine Ratio 20 (6-20) Glucose Level 121 mg/dL (70-99) 129 mg/dL (70-99) Calcium Level 9.9 mg/dL (8.5-10.1) 9.6 mg/dL (8.5-10.1) Total Bilirubin 0.9 mg/dL (0.2-1.0) Aspartate Amino Transf (AST/SGOT) 40 U/L (15-37) Alanine Aminotransferase (ALT/SGPT) 82 U/L (14-59) Alkaline Phosphatase 90 U/L (46-116) Troponin I Quantitative < 0.017 ng/mL (0.000-0.055) BK-Tgm-P-Type Natriuretic Peptide 33 pg/mL (0-124) Total Protein 8.0 g/dL (6.4-8.2) Albumin 3.7 g/dL (3.4-5.0) Albumin/Globulin Ratio 0.9 (1.0-1.7) SARS-CoV-2 RNA (DEISI) Negative (Negative) Segmented Neutrophils % 81 % (35-66) Band Neutrophils % 7 % (0-9) Lymphocytes % 7 % (24-48) Monocytes % 5 % (0-10) Platelet Estimate Adequate (ADEQUATE) Magnesium Level 2.1 mg/dL (1.8-2.4) SARS-CoV-2 Antigen (Rapid) Negative (NEGATIVE) Test 09/13/20 05:55 Sodium Level 139 mmol/L (136-145) Potassium Level 3.1 mmol/L (3.5-5.1) Chloride Level 100 mmol/L (98-107) Carbon Dioxide Level 35 mmol/L (21-32) Anion Gap 4 (6-14) Blood Urea Nitrogen 27 mg/dL (7-20) Creatinine 1.0 mg/dL (0.6-1.0) Estimated GFR (Cockcroft-Gault) 57.4 BUN/Creatinine Ratio 27 (6-20) Glucose Level 93 mg/dL (70-99) Calcium Level 9.1 mg/dL (8.5-10.1) Total Bilirubin 0.4 mg/dL (0.2-1.0) Aspartate Amino Transf (AST/SGOT) 28 U/L (15-37) Alanine Aminotransferase (ALT/SGPT) 64 U/L (14-59) Alkaline Phosphatase 68 U/L (46-116) Total Protein 6.5 g/dL (6.4-8.2) Albumin 3.0 g/dL (3.4-5.0) Albumin/Globulin Ratio 0.9 (1.0-1.7) Laboratory Tests Test 09/12/20 12:55 09/13/20 05:55 SARS-CoV-2 Antigen (Rapid) Negative (NEGATIVE) Sodium Level 139 mmol/L (136-145) Potassium Level 3.1 mmol/L (3.5-5.1) Chloride Level 100 mmol/L (98-107) Carbon Dioxide Level 35 mmol/L (21-32) Anion Gap 4 (6-14) Blood Urea Nitrogen 27 mg/dL (7-20) Creatinine 1.0 mg/dL (0.6-1.0) Estimated GFR (Cockcroft-Gault) 57.4 BUN/Creatinine Ratio 27 (6-20) Glucose Level 93 mg/dL (70-99) Calcium Level 9.1 mg/dL (8.5-10.1) Total Bilirubin 0.4 mg/dL (0.2-1.0) Aspartate Amino Transf (AST/SGOT) 28 U/L (15-37) Alanine Aminotransferase (ALT/SGPT) 64 U/L (14-59) Alkaline Phosphatase 68 U/L (46-116) Total Protein 6.5 g/dL (6.4-8.2) Albumin 3.0 g/dL (3.4-5.0) Albumin/Globulin Ratio 0.9 (1.0-1.7) Medications Active Scripts Medications Dose Route/Sig Max Daily Dose Days Date Category Furosemide 40 Mg Tablet 40 Mg PO DAILY 09/12/20 Reported Omeprazole 40 Mg Capsule.dr 40 Mg PO DAILY 09/12/20 Reported Hydrochlorothiazide Capsule (Hydrochlorothiazide) 12.5 Mg Capsule 12.5 Mg PO DAILY 09/12/20 Reported Bupropion Xl (Bupropion Hcl) 150 Mg Tab.er.24h 150 Mg PO BID 09/12/20 Reported Combivent Respimat Inhal (Ipratropium/Albuterol Sulfate) 4 Gm Aer.w.adap 2 Inh IH QID 09/12/20 Reported Proair Hfa Inhaler (Albuterol Sulfate) 8.5 Gm Hfa.aer.ad 2 Puff INH PRN Q4-6HRS PRN 30 08/29/18 Rx Orphenadrine Citrate 100 Mg Tablet.er 1 Tab PO BID 01/30/17 Rx Impression . IMPRESSION AND PLAN: 1. Acute exacerbation of chronic obstructive pulmonary disease. 2. Acute hypoxemic respiratory failure secondary to above. 3. Negative BPNY-OWDOI-0 testing, this may be falsely negative results, patient was exposed, less than a week ago, recommend repeating test in the a.m. 4. Continue current steroids and antibiotics. 5. Nebulized treatments. 6. Continue isolation for a person under investigation. Plan . Second Covid testing negative Okay to discharge Follow-up with PCP Spoke with nurse, if O2 sat on room air less than 90%, require 6-minute walk prior to discharge DEISY MCGARRY MD Sep 13, 2020 09:24
[2020-09-13 11:00] VITALS: BP 102/50
--- NOTE | 2020-09-13 13:12 | PDOC ---
[employer] PROGRESS NOTE Date of Service DOS: DATE: 09/13/20 TIME: 13:10 Chief Complaint Chief Complaint Acute hypoxemic respiratory failure chronic obstructive pulmonary disease, w/ acute bronchitis, -negative for Covid repeat x2 Tobacco abuse disorder Hypertension. Hypothyroidism. hypokalemia weakness, debility, History of Present Illness History of Present Illness neg test yesterday for covid, Dr. Zurita wants retested, and I agree, hypoxia with mild LFT, and lymphopenia no pain, feels comfortable still on 4 liters NC, treated as COPD AE 09/13/2020 No acute events overnight. Patient seen examined bedside. Repeat Covid test is negative. Treat as acute COPD exacerbation. Continue with the steroids and O2 supplementation. Patient's chart, labs, images were reviewed and discussed with RN Vitals/I&O Vitals/I&O: Vital Signs Date Time Temp Pulse Resp B/P (MAP) Pulse Ox O2 Delivery O2 Flow Rate FiO2 09/13/20 11:00 97.7 60 20 102/50 (67) 98 Nasal Cannula 2.0 97.7 I & O 09/12/20 09/12/20 09/13/20 15:00 23:00 07:00 Intake Total 320 ml 200 ml Balance 320 ml 200 ml Physical Exam Physical Exam: a little limited exam, still pos COVID General: Alert, Oriented X3, Cooperative, mild distress Heart: Regular rate Lungs: Other (end rales, ) Extremities: Other Skin: No rashes, Other Labs Labs: Laboratory Tests Test 09/13/20 05:55 Sodium Level 139 mmol/L (136-145) Potassium Level 3.1 mmol/L (3.5-5.1) Chloride Level 100 mmol/L (98-107) Carbon Dioxide Level 35 mmol/L (21-32) Anion Gap 4 (6-14) Blood Urea Nitrogen 27 mg/dL (7-20) Creatinine 1.0 mg/dL (0.6-1.0) Estimated GFR (Cockcroft-Gault) 57.4 BUN/Creatinine Ratio 27 (6-20) Glucose Level 93 mg/dL (70-99) Calcium Level 9.1 mg/dL (8.5-10.1) Total Bilirubin 0.4 mg/dL (0.2-1.0) Aspartate Amino Transf (AST/SGOT) 28 U/L (15-37) Alanine Aminotransferase (ALT/SGPT) 64 U/L (14-59) Alkaline Phosphatase 68 U/L (46-116) Total Protein 6.5 g/dL (6.4-8.2) Albumin 3.0 g/dL (3.4-5.0) Albumin/Globulin Ratio 0.9 (1.0-1.7) Assessment and Plan Assessmemt and Plan Problems Medical Problems: (1) History of COPD Status: Acute (2) Hypokalemia Status: Acute (3) Person under investigation for COVID-19 Status: Acute (4) Pneumonia Status: Acute Comment Review of Relevant I have reviewed the following items dipak (where applicable) has been applied. Medications: Current Medications Medications (Trade) Dose Ordered Sig/Donn Route PRN Reason Start Time Stop Time Status Last Admin Dose Admin Lactobacillus Rhamnosus (Culturelle) 1 cap BID PO 09/12/20 21:00 09/13/20 08:32 Justifications for Admission Other Justification CONNOR LUCIO MD Sep 13, 2020 13:11
[2020-09-13] MEDS ORDERED: PRED20TA PO (14:40)
--- NOTE | 2020-09-13 14:41 | DISCH ---
DISCHARGE INSTRUCTIONS Condition on Discharge Condition on Discharge: Stable Activity After Discharge Activity Instructions for Disc: Activity as tolerated Lifting Instructions after Dis: No pulling or pushing Exercise Instruction after Dis: Walk 15 min, 3 x per day Driving Instructions after Dis: Do not drive today Diet after Discharge Diet after Discharge: Cardiac, Regular Follow-Up Follow up with: PCP within 2 weeks of discharge Follow Up With: Pulmonology as needed CONNOR LUCIO MD Sep 13, 2020 14:41
[2020-09-13 14:51] VITALS: BP 121/60
[2020-09-13] MEDS ORDERED: POTASSIUM CHLORIDE 20 MEQ TABLET.ER. PO ONE ×2 (15:00→17:00)
--- NOTE | 2020-09-13 17:15 | NUR ---
Discharge Note: Patient was discharged home with self care. Patients IV was discontinued without any complications by TEA. Patient was greater than 90% on room air therefore, per Dr. Zurita's verbal order, she did not need a 6 minute walk. Patient was given discharge summary/instructions, follow-ups, and educational material. Patients prescription was sent to patients preferred pharmacy. Patient did not have any further questions or concerns. Patient was taken down to the ER entrance, with all personal belongings, accompanied by TEA Contreras, where patients car was parked.
--- NOTE | 2020-09-15 11:23 | PDOC3 ---
[facility]-Discharge Summary Date of Admission: Date of Admission: Sep 11, 2020 Date of Discharge: Date of Discharge: Sep 13, 2020 Discharge Diagnosis: Discharge Diagnosis: Acute hypoxemic respiratory failure chronic obstructive pulmonary disease, w/ acute bronchitis, -negative for Covid repeat x2 Tobacco abuse disorder Hypertension. Hypothyroidism. hypokalemia weakness, debility, Hospital Course: Hospital Course: neg test yesterday for covid, Dr. Zurita wants retested, and I agree, hypoxia with mild LFT, and lymphopenia no pain, feels comfortable still on 4 liters NC, treated as COPD AE 09/13/2020 No acute events overnight. Patient seen examined bedside. Repeat Covid test is negative. Treat as acute COPD exacerbation. Continue with the steroids and O2 supplementation. Patient's chart, labs, images were reviewed and discussed with RN Repeat test was negative By day of discharge, pt was clinically stable and ready for discharge. Rest of hospital course was uneventful Disposition: Disposition/Orders: D/C to Home Activity: Activity: Resume previous activity Diet: Diet: Cardiac Medications: Home Meds Active Scripts Prednisone (PREDNISONE) 20 Mg Tablet, 40 MG PO DAILY for copd exacerbation for 5 Days, #10 TAB Prov:CONNOR LUCIO MD 09/13/20 Albuterol Sulfate (PROAIR HFA INHALER) 8.5 Gm Hfa.aer.ad, 2 PUFF INH PRN Q4-6HRS PRN for SHORTNESS OF BREATH for 30 Days, #1 INHALER 0 Refills Prov:JOBY BRUNSON HANDHOLE MACHINE OPERATOR 08/29/18 Orphenadrine Citrate (ORPHENADRINE CITRATE) 100 Mg Tablet.er, 1 TAB PO BID, #30 TAB 1 Refill Prov:SULTANA HANSEN MD 01/30/17 Reported Medications Furosemide (FUROSEMIDE) 40 Mg Tablet, 40 MG PO DAILY for diuretic, TAB 09/12/20 Omeprazole (OMEPRAZOLE) 40 Mg Capsule.dr, 40 MG PO DAILY for gerd, CAP 09/12/20 Hydrochlorothiazide (HYDROCHLOROTHIAZIDE CAPSULE ) 12.5 Mg Capsule, 12.5 MG PO DAILY for DIURETIC, CAP 0 Refills 09/12/20 Bupropion Hcl (BUPROPION XL) 150 Mg Tab.er.24h, 150 MG PO BID for depression/smoking cessation, TAB.SR 09/12/20 Ipratropium/Albuterol Sulfate (COMBIVENT RESPIMAT INHAL) 4 Gm Aer.w.adap, 2 INH IH QID for copd, EACH 09/12/20 Scheduled Bupropion Hcl (Bupropion Xl), 150 MG PO BID, (Reported) Furosemide (Furosemide), 40 MG PO DAILY, (Reported) Hydrochlorothiazide (Hydrochlorothiazide Capsule ), 12.5 MG PO DAILY, (Reported) Ipratropium/Albuterol Sulfate (Combivent Respimat Inhal), 2 INH IH QID, (Reported) Omeprazole (Omeprazole), 40 MG PO DAILY, (Reported) Orphenadrine Citrate (Orphenadrine Citrate), 1 TAB PO BID Prednisone (Prednisone), 40 MG PO DAILY Scheduled PRN Albuterol Sulfate (Proair Hfa Inhaler), 2 PUFF INH PRN Q4-6HRS PRN for SHORTNESS OF BREATH Total Time: Total Time: Total time spent was 35 minutes in preparing scripts, discharge planning with SW and RN, and preparing this discharge summary. Patient seen and examined on day of discharge. Justicifation of Admission Dx: Justifications for Admission: Justification of Admission Dx: Yes Acute COPD Exacerbation: Acute COPD Exacerbation CONNOR LUCIO MD Sep 15, 2020 11:23
== END 2020-09-13 17:20 | disposition home or self-care (01) | DRG 189 ==
LOC: ER 11:14 → 5 NORTH 13:00
PROVIDERS: ADMIT Internal Medicine; ATTEND Internal Medicine
DX: J96.21 Acute and chronic respiratory failure with hypoxia (principal); J44.0 Chronic obstructive pulmonary disease with (acute) lower respiratory infection; J98.11 Atelectasis; J44.1 Chronic obstructive pulmonary disease with (acute) exacerbation; J20.9 Acute bronchitis, unspecified; D72.810 Lymphocytopenia; E03.9 Hypothyroidism, unspecified; E87.6 Hypokalemia; F17.210 Nicotine dependence, cigarettes, uncomplicated; I10 Essential (primary) hypertension; Z20.822 Contact with and (suspected) exposure to COVID-19; Z78.9 Other specified health status
CPT/HCPCS: 36415; 71045; 80048; 80053; 83735; 83880; 84484; 85007; 85025; 87426; 93005; 94640; 94760; 96361; 96365; 96375; 99406; J1650; J1956; J2930; J7030; J7512; U0003; U0005; 99285-25; G0378; J7613; J7644

== ENCOUNTER 2020-09-24 13:22 | Emergency (ER) | payer OTHER ==
[~2020-09-24] VITALS: Ht 167.6 cm; Wt 98.7 kg
[~2020-09-24 13:22] MED LIST changes: +BUPR150T21 PO; +FURO40TA4 PO; +HYDR12.575 PO; +IPRA4AER IH; +OMEP40CA7 PO; +PRED20TA PO
[2020-09-24 14:45] VITALS: BP 148/88
[2020-09-24 15:19] LABS: BILIRUBIN,URINE NEGATIVE (NEG); CLARITY,URINE CLEAR; COLOR,URINE YELLOW; NITRITE,URINE NEGATIVE (NEG); PH,URINE 6.5 (<5.0-8.0); PROTEIN,URINE 30 mg/dL (NEG-TRACE)
[2020-09-24 15:31] LABS: BACTERIA,URINE MANY /HPF (0-FEW)
[2020-09-24 15:32] LABS: RBC,URINE OCC /HPF (0-2)
[2020-09-24] MEDS ORDERED: CYCL10TA2 PO (16:16)
[2020-09-24] MEDS ORDERED: GABA300C18 PO (16:16)
[2020-09-24] MEDS ORDERED: SULF1TAB24 PO (16:16)
--- NOTE | 2020-09-24 16:17 | PHYS DOC ---
Past Medical History Past Medical History: Asthma, COPD, Hypertension, Hypothyroid Additional Past Medical Histor: Thyroid Past Surgical History: Other Additional Past Surgical Histo: LT EARDRUM REPAIR Smoking Status: Current Every Day Smoker Additional Information: 02/15 ppd Alcohol Use: None Drug Use: Marijuana General Adult EDM: Chief Complaint: BACK PAIN - NO INJURY HPI: HPI: Patient is a 54 year old female with history of hypertension, COPD, asthma, who presents to the ED today complaining of a sharp 9 out of 10 right low back pain nonradiating in nature, symptoms began yesterday. Patient denies any injuries. Denies any loss of bowel/bladder function. She states she was seen at urgent care yesterday and given steroid injection which did not help. Denies any fever, nausea, vomiting. States that pain is worse on activity. Review of Systems: Review of Systems: Constitutional: Denies fever or chills. [] Respiratory: Denies cough or shortness of breath. [] Cardiovascular: Denies chest pain or edema. [] GI: Denies abdominal pain, nausea, vomiting, bloody stools or diarrhea. [] : Denies dysuria. [] Musculoskeletal: Reports low back pain Integument: Denies rash. [] Neurologic: Denies headache, focal weakness or sensory changes. [] Psychiatric: Denies depression or anxiety. [] Heart Score: C/O Chest Pain: N/A Risk Factors: Risk Factors: DM, Current or recent (<one month) smoker, HTN, HLP, family history of CAD, obesity. Risk Scores: Score 0 - 3: 2.5% MACE over next 6 weeks - Discharge Home Score 4 - 6: 20.3% MACE over next 6 weeks - Admit for Clinical Observation Score 7 - 10: 72.7% MACE over next 6 weeks - Early Invasive Strategies Allergies: Allergies: Allergies Coded Allergies Type Severity Reaction Last Updated Verified amoxicillin Allergy Severe SOB,RASH 09/24/20 Yes clavulanic acid Allergy Severe SOB 09/24/20 Yes codeine Allergy Severe SOB 09/24/20 Yes Physical Exam: PE: Constitutional: Well developed, well nourished, no acute distress, non-toxic appearance. [] Abdomen: Bowel sounds normal, soft, no tenderness, no masses, no pulsatile mass es. [] Skin: Warm, dry, no erythema, no rash. [] Back: Diffuse paraspinal muscle tenderness of the right lumbar spine, no midline lumbar spine tenderness, no CVA tenderness. [] Extremities: No tenderness, no cyanosis, no clubbing, ROM intact, no edema. [] Neurologic: Alert and oriented X 3, normal motor function, normal sensory function, no focal deficits noted. [] Psychologic: Affect normal, judgement normal, mood normal. [] Current Patient Data: Labs: Laboratory Tests Test 09/24/20 14:45 09/24/20 14:59 Urine Collection Type Void Urine Color Yellow Urine Clarity Clear Urine pH 6.5 (<5.0-8.0) Urine Specific [place] 1.020 (1.000-1.030) Urine Protein 30 mg/dL (NEG-TRACE) Urine Glucose (UA) Negative mg/dL (NEG) Urine Ketones (Stick) Negative mg/dL (NEG) Urine Blood Negative (NEG) Urine Nitrite Negative (NEG) Urine Bilirubin Negative (NEG) Urine Urobilinogen Dipstick 1.0 mg/dL (0.2 mg/dL) Urine Leukocyte Esterase Small (NEG) Urine RBC Occ /HPF (0-2) Urine WBC 5-10 /HPF (0-4) Urine Squamous Epithelial Cells Many /LPF Urine Bacteria Many /HPF (0-FEW) Urine Mucus Mod /LPF POC Urine HCG, Qualitative Hcg negative (Negative) Vital Signs: Vital Signs Date Time Temp Pulse Resp B/P (MAP) Pulse Ox O2 Delivery O2 Flow Rate FiO2 09/24/20 14:45 98.5 77 24 148/88 (80) 94 Room Air 98.5 EKG: EKG: [] Radiology/Procedures: Radiology/Procedures: [] Course & Med Decision Making: Course & Med Decision Making Pertinent Labs and Imaging studies reviewed. (See chart for details) This a 54-year-old female patient presented to the ED today with right low back pain since yesterday. Positive for UTI, discharged on Bactrim. Also given prescription for cyclobenzaprine, gabapentin. Follow-up with PCP in 1 week Kelsey Disclaimer: Kelsey Disclaimer: This electronic medical record was generated, in whole or in part, using a voice recognition dictation system. Departure Departure Impression: Primary Impression: Low back pain Qualified Codes: M54.5 - Low back pain Additional Impression: UTI (urinary tract infection) Qualified Codes: N39.0 - Urinary tract infection, site not specified Disposition: HOME / SELF CARE / HOMELESS Condition: STABLE Referrals: OLGA ESPINOZA MD (PCP) follow up in one week Patient Instructions: Back Pain, Adult, Urinary Tract Infection Additional Instructions: You were evaluated in the emergency room for back pain and noted to have a UTI. Take your prescribed antibiotics until completed. Take the rest of the medicines as ordered. Follow-up with your doctor in 1 week Scripts Gabapentin (GABAPENTIN ) 300 Mg Capsule 300 MG PO TID for NEUROGENIC PAIN, #20 CAP Prov: MOLLY SHEPARD APRN 09/24/20 Cyclobenzaprine Hcl (CYCLOBENZAPRINE HCL) 10 Mg Tablet 1 TAB PO TID, #30 TAB Prov: MOLLY SHEPARD APRN 09/24/20 Sulfamethoxazole/Trimethoprim (BACTRIM DS TABLET) 1 Each Tablet 1 TAB PO BID for 3 Days, #6 TAB 0 Refills Prov: MOLLY SHEPARD APRN 09/24/20 MOLLY SHEPARD APRN Sep 24, 2020 16:17
== END 2020-09-24 16:47 | disposition home or self-care (01) ==
LOC: ER 13:22
DX: N39.0 Urinary tract infection, site not specified (principal); J44.9 Chronic obstructive pulmonary disease, unspecified; I10 Essential (primary) hypertension; E03.9 Hypothyroidism, unspecified; F17.200 Nicotine dependence, unspecified, uncomplicated; Z88.1 Allergy status to other antibiotic agents; Z88.5 Allergy status to narcotic agent; Z88.8 Allergy status to other drugs, medicaments and biological substances
CPT/HCPCS: 81001; 81025; 87086; 99283

== ENCOUNTER 2020-09-26 21:00 | Inpatient (IN) | payer OTHER ==
[~2020-09-26] VITALS: Ht 167.6 cm; Wt 100.9 kg
[~2020-09-26 21:00] MED LIST changes: +CYCL10TA2 PO; +GABA300C18 PO; +SULF1TAB24 PO
[2020-09-26 21:49] LABS: BILIRUBIN,URINE SMALL (NEG); CLARITY,URINE CLOUDY; COLOR,URINE YELLOW; NITRITE,URINE NEGATIVE (NEG); PH,URINE 6.5 (<5.0-8.0); PROTEIN,URINE 30 mg/dL (NEG-TRACE)
[2020-09-26 21:58] LABS: BACTERIA,URINE MODERATE /HPF (0-FEW)
[2020-09-26 22:02] LABS: RBC,URINE 0 /HPF (0-2)
--- NOTE | 2020-09-26 22:23 | PHYS DOC ---
Past Medical History Past Medical History: Asthma, COPD, Hypertension, Hypothyroid Additional Past Medical Histor: Thyroid (CAMRYNLACEY INSPECTOR SET UP AND LAY OUT) Past Surgical History: Other Additional Past Surgical Histo: LT EARDRUM REPAIR (CAMRYNLACEY INSPECTOR SET UP AND LAY OUT) Smoking Status: Current Every Day Smoker Alcohol Use: None Drug Use: Marijuana (CAMRYNLACEY M INSPECTOR SET UP AND LAY OUT) General Adult EDM: Chief Complaint: FATIGUE HPI: HPI: Patient is a 54 year old female who presents with 1 week of no appetite and fatigue. Went to her doctor and was diagnosed with a urinary tract infection and they placed her on antibiotics. She does have a chronic cough. She states that she was around somebody with Covid 3 weeks ago and that she quarantine. Patient was tested last year on September 12 and her Covid was negative. Was also hospitalized around that time with pneumonia here at [facility]. Patient has a history of hypertension, COPD, pulmonary edema, hypothyroidism, smoker. (LACEY COWAN INSPECTOR SET UP AND LAY OUT) Review of Systems: Review of Systems: Constitutional: Denies fever or chills. [] Eyes: Denies change in visual acuity. [] HENT: Denies nasal congestion or sore throat. [] Respiratory: + cough or denies shortness of breath. [] Cardiovascular: Denies chest pain or edema. [] GI: Denies abdominal pain, nausea, vomiting, bloody stools or diarrhea. + No appetite [] : Denies dysuria. [] Musculoskeletal: Denies back pain or joint pain. + Fatigue [] Integument: Denies rash. [] Neurologic: Denies headache, focal weakness or sensory changes. [] Endocrine: Denies polyuria or polydipsia. [] Lymphatic: Denies swollen glands. [] Psychiatric: Denies depression or anxiety. [] (LACEY COWAN INSPECTOR SET UP AND LAY OUT) Heart Score: C/O Chest Pain: No HEART Score for Chest Pain: HEART Score for Chest Pain Response (Comments) Value History Slighlty/Non-Suspicious 0 ECG Nonspecific Repolarizatio 1 Age >45 - < 65 1 Risk Factors 1 or 2 Risk Factors 1 Troponin < Normal Limit 0 Total 3 Risk Factors: Risk Factors: DM, Current or recent (<one month) smoker, HTN, HLP, family history of CAD, obesity. Risk Scores: Score 0 - 3: 2.5% MACE over next 6 weeks - Discharge Home Score 4 - 6: 20.3% MACE over next 6 weeks - Admit for Clinical Observation Score 7 - 10: 72.7% MACE over next 6 weeks - Early Invasive Strategies (LACEY COWAN APRN) Current Medications: Current Medications Medications (Trade) Dose Ordered Sig/Donn Start Time Stop Time Status Last Admin Dose Admin Dexamethasone Sodium Phosphate (Decadron) 10 mg 1X ONCE 09/26/20 22:30 09/26/20 22:31 (LACEY COWAN APRN) Allergies: Allergies: Allergies Coded Allergies Type Severity Reaction Last Updated Verified amoxicillin Allergy Severe SOB,RASH 09/24/20 Yes clavulanic acid Allergy Severe SOB 09/24/20 Yes codeine Allergy Severe SOB 09/24/20 Yes (LACEY COWAN APRN) Physical Exam: PE: Constitutional: Well developed, well nourished, no acute distress, non-toxic appearance. [] HENT: Normocephalic, atraumatic, bilateral external ears normal, oropharynx moist, no oral exudates, nose normal. [] Eyes: PERRLA, EOMI, conjunctiva normal, no discharge. [] Neck: Normal range of motion, no tenderness, supple, no stridor. [] Cardiovascular:Heart rate regular rhythm, no murmur [] Lungs & Thorax: Bilateral upper breath sounds clear lower diminished with inspiratory expiratory wheezing and right upper lobe coarseness to auscultation [] Abdomen: Bowel sounds normal, soft, no tenderness, no masses, no pulsatile masses. [] Skin: Warm, dry, no erythema, no rash. [] Back: No tenderness, no CVA tenderness. [] Extremities: No tenderness, no cyanosis, no clubbing, ROM intact, no edema. [] Neurologic: Alert and oriented X 3, normal motor function, normal sensory function, no focal deficits noted. [] Psychologic: Affect normal, judgement normal, mood normal. [] (LACEY COWAN APRN) Current Patient Data: Labs: Laboratory Tests Test 09/26/20 21:16 Urine Collection Type Void Urine Color Yellow Urine Clarity Cloudy Urine pH 6.5 (<5.0-8.0) Urine Specific [place] 1.020 (1.000-1.030) Urine Protein 30 mg/dL (NEG-TRACE) Urine Glucose (UA) Negative mg/dL (NEG) Urine Ketones (Stick) 15 mg/dL (NEG) Urine Blood Negative (NEG) Urine Nitrite Negative (NEG) Urine Bilirubin Small (NEG) Urine Urobilinogen Dipstick 2.0 mg/dL (0.2 mg/dL) Urine Leukocyte Esterase Moderate (NEG) Urine RBC 0 /HPF (0-2) Urine WBC 11-20 /HPF (0-4) Urine Squamous Epithelial Cells Mod /LPF Urine Bacteria Moderate /HPF (0-FEW) Urine Mucus Slight /LPF (LACEY COWNA APRN) EKG: EK and read by Dr. Charles sinus rhythm with atrial premature complexes and no STEMI. (LACEY COWAN APRN) Radiology/Procedures: Radiology/Procedures: [] Impression: [facility] [address] [place] [address] IMAGING REPORT Signed PATIENT: SANDRO ELLIS ACCOUNT: [id number] : 1965 LOCATION: ER AGE: 54 SEX: F EXAM STATUS: REG ER ORD. PHYSICIAN: LACEY COWAN APRN REASON: soa PROCEDURE: PORTABLE CHEST 1V Exam: Chest one view INDICATION: Short of air TECHNIQUE: Frontal view of the chest Comparisons: 09/11/2020 FINDINGS: The cardiomediastinal silhouette and pulmonary vessels are within normal limits. The lung and pleural spaces are clear. IMPRESSION: No acute cardiopulmonary process. Electronically signed by: Iman Gutierrez MD (09/26/2020 10:38 PM) [facility] DICTATED and SIGNED BY: IMAN GUTIERREZ MD DATE: 09/26/20 [id number] (LACEY COWAN APRN) Course & Med Decision Making: Course & Med Decision Making Pertinent Labs and Imaging studies reviewed. (See chart for details) See HPI. Alert and oriented x4. Ambulatory with steady gait. Speaks in full clear sentences. Patient is requiring oxygen at 2 L getting her up to 91%. Pat ient was 86% on room air. No respiratory distress. Lungs have inspiratory expiratory wheezing and some coarseness on the right. Diminished in lower lobes but there are some wheezing also. She states she is been using her nebulizer at home and she is now more short of air than she usually is. Patient has had 1 Covid shot. Chest x-ray shows no acute findings. I have her ciprofloxacin for her UTI. She is gotten 1 bolus of IV fluid. She is also getting 2 g of magnesium. Patient's rapid Covid came back positive. [] (LACEY COWAN APRN) Course & Med Decision Making Patients Care and treatment plan provided by ER Nurse Practitioner. I was available for consult. Patient's chart reviewed. (NEGAR CHARLES DO) Dragon Disclaimer: Dragon Disclaimer: This electronic medical record was generated, in whole or in part, using a voice recognition dictation system. (LACEY COWAN APRN) Departure Departure Impression: Primary Impression: COPD exacerbation Additional Impressions: UTI (urinary tract infection) Qualified Codes: N39.0 - Urinary tract infection, site not specified Hypoxia Hypomagnesemia COVID-19 Disposition: ADMITTED INPATIENT Admitting Physician: KAYLENE (LACEY COWAN APRN) Condition: STABLE Referrals: OLGA ESPINOZA MD (PCP) LACEY COWAN APRN Sep 26, 2020 22:23 NEGAR CHARLES DO Sep 28, 2020 18:25
[2020-09-26 22:24] LABS: BASO % 1 % (0-3); EOS % 0 % (0-3); HEMATOCRIT 50.8 % (36.0-47.0); HEMOGLOBIN 17.2 g/dL (12.0-15.5); LYMPH # 1.1 x10^3/uL (1.0-4.8); LYMPH % 20 % (24-48); MEAN CORPUSCULAR HEMOGLOBIN 29 pg (25-35); MEAN CORPUSCULAR HGB CONC 34 g/dL (31-37); MEAN CORPUSCULAR VOLUME 85 fL (79-100); MONO # 0.6 x10^3/uL (0.0-1.1); MONO % 13 % (0-9); NEUT # 3.4 x10^3/uL (1.8-7.7); NEUT % 66 % (31-73); PLATELET COUNT 184 x10^3/uL (140-400); RED BLOOD COUNT 5.99 x10^6/uL (3.50-5.40); RED CELL DISTRIBUTION WIDTH 15.2 % (11.5-14.5); WHITE BLOOD COUNT 5.1 x10^3/uL (4.0-11.0)
[2020-09-26] MEDS ORDERED: ACETAMINOPHEN 500 MG TABLET PO ONE (22:30)
[2020-09-26] MEDS ORDERED: DEXAMETHASONE SOD PHOS 4 MG/ML VIAL IVP ONE (22:30)
[2020-09-26 22:34] LABS: CALCIUM 8.6 mg/dL (8.5-10.1); CREATININE 1.3 mg/dL (0.6-1.0); GFR 42.4; POTASSIUM 3.3 mmol/L (3.5-5.1)
--- NOTE | 2020-09-26 22:40 | RAD ---
Exam: Chest one view INDICATION: Short of air TECHNIQUE: Frontal view of the chest Comparisons: 09/11/2020 FINDINGS: The cardiomediastinal silhouette and pulmonary vessels are within normal limits. The lung and pleural spaces are clear. IMPRESSION: No acute cardiopulmonary process. Electronically signed by: Iman Fitzgerald MD (09/26/2020 10:38 PM) [facility]
[2020-09-26 22:41] LABS: ALBUMIN 3.2 g/dL (3.4-5.0); ALBUMIN/GLOBULIN RATIO 0.9 (1.0-1.7); MAGNESIUM 1.7 mg/dL (1.8-2.4); TOTAL BILIRUBIN 0.6 mg/dL (0.2-1.0); TOTAL PROTEIN 6.9 g/dL (6.4-8.2)
[2020-09-26] MEDS ORDERED: MAGNESIUM SULFATE 2GM 50 ML IV ONE (23:00)
[2020-09-26] MEDS ORDERED: CIPROFLOXACIN 400MG PREMIX 200 ML IV ONE (23:00)
[2020-09-26] MEDS ORDERED: ALBUTEROL SULFATE 2.5 MG/3 ML NEBU. NEB ONE (23:00)
[2020-09-26 23:28] LABS: BASE EXCESS COOX 5 mmol/L (-3-3); HCO3 COOX 30 mmol/L (21-28); METHEMOGLOBIN 0.5 % (0.0-1.9); OXYHEMOGLOBIN 93.2 %; PCO2 COOX 45 mmHg (35-46); PO2 COOX 76 mmHg (75-108); SAT O2 COOX 95 % (92-99)
[2020-09-27] MEDS: IV NORMAL SALINE 1000ML BAG 1,000 ML IV SCH ×5 (00:22→21:59)
--- NOTE | 2020-09-27 02:17 | EKG ---
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
--- NOTE | 2020-09-27 02:18 | EKG ---
[facility] [address] [place] [address] Test Date: 2020-09-27 Test Time: 00:24:04 Pat Name: SANDRO ELLIS Department: Room: Gender: F [employer]zing [employer] Boring Machine Feeder: : [id number] Requested By: LACEY COWAN Order Number: [id number] Reading MD: Measurements Intervals [place] Rate: 79 P: 90 ND: 132 QRS: 64 QRSD: 86 T: 29 QT: 408 QTc: 469 Interpretive Statements SINUS RHYTHM ATRIAL PREMATURE COMPLEX(ES) OTHERWISE NORMAL ECG RI6.01 Compared to ECG 09/26/2020 22:02:40 No significant changes
[2020-09-27 02:28] VITALS: BP 91/58
[2020-09-27 07:00] VITALS: BP 117/66
--- NOTE | 2020-09-27 08:40 | CONS ---
DATE OF CONSULTATION: 09/27/2020 PULMONARY CONSULTATION ATTENDING PHYSICIAN: Dr. Potter. REASON FOR CONSULTATION: COVID-19 pneumonia and hypoxia. HISTORY OF PRESENT ILLNESS: The patient is a 54-year-old obese female with a BMI of 35. She has been a smoker for at least 25-30 years and still smokes cigarettes. She was brought into the hospital with complaint of cough. She received her COVID vaccine from [facility] on September 16. The patient was then exposed to someone with COVID and has been diagnosed with COVID-19. She was tested positive yesterday. She feels comfortable. She is currently on 3 liters of oxygen. Denies any history of deep vein thrombosis or pulmonary embolism. No headaches, no nausea, no vomiting, no diarrhea, no dysuria. PAST MEDICAL HISTORY: Significant for tobaccoism, likely COPD; hypertension; hypothyroidism. PAST SURGICAL HISTORY: Left eardrum repair. ALLERGIES: AMOXICILLIN AND CODEINE. MEDICATIONS: Reviewed as listed in the [facility]AD including dexamethasone. REVIEW OF SYSTEMS: A 12-point system obtained. Pertinent positives discussed in my present illness, otherwise noncontributory. All systems that were negative were reviewed as well. SOCIAL HISTORY: Smoker for 30 years and still smokes cigarettes. PHYSICAL EXAMINATION: VITAL SIGNS: Reviewed. Pulse ox 96% on 3 liters. Visual exam done due to COVID-19. No obvious respiratory distress. No skin rash. EXTREMITIES: No leg edema. LUNGS: No paradoxical breathing. LABORATORY DATA: Reviewed. She is tested COVID positive. BUN 22, creatinine 1.3. White cell count 5.1, hemoglobin 17.2 and platelets of 184. IMPRESSION: 1. Acute hypoxic respiratory failure secondary to COVID-19 viral pneumonia in a patient who has been a smoker for 30 years and also received Pfizer vaccine on September 16. Her oxygen requirement is minimal. Chest x-ray does not reveal any definite interstitial infiltrates. 2. History of hypertension. 3. History of chronic obstructive pulmonary disease with ongoing tobaccoism. 4. Mild acute kidney injury. RECOMMENDATIONS: 1. Continue present oxygen at 3 liters. 2. Continue steroids and finish 10-day course. 3. Initiated remdesivir. 4. Hold off on any empiric antibiotics. 5. Follow the clinical course. 6. Overall respiratory status is stable. If her oxygen requirement worsens, please let us know for any further recommendations otherwise we will see her p.r.n. AUK/NEL DR: Juan TID: [id number]
--- NOTE | 2020-09-27 09:21 | PDOC1 ---
History and Physical Date of Service: DOS: DATE: 09/27/20 TIME: 09:18 Chief Complaint: Chief Complain: Fatigue and shortness of breath History of Present Illness: HPI: 54 year old female who presents with 1 week of no appetite and fatigue. Went to her doctor and was diagnosed with a urinary tract infection and they placed her on antibiotics. She does have a chronic cough. She states that she was around somebody with Covid 3 weeks ago and that she quarantine. Patient was tested last year on September 12 and her Covid was negative. Was also hospitalized around that time with pneumonia here at [facility]. Patient has a history of hypertension, COPD, pulmonary edema, hypothyroidism, smoker. Past Medical/Surgical History: PMH/PSH: Past Medical History: Asthma, COPD, Hypertension, Hypothyroid Past Surgical History: LT EARDRUM REPAIR Allergies: Allergies: Coded Allergies: amoxicillin (Verified Allergy, Severe, SOB,RASH, 09/24/20) clavulanic acid (Verified Allergy, Severe, SOB, 09/24/20) codeine (Verified Allergy, Severe, SOB, 09/24/20) Family History: Family History: Reviewed with no relevant findings Social History: Social History: Smoking Status: Current Every Day Smoker Alcohol Use: None Drug Use: Marijuana Current Medications: Current Medications Current Medications Dexamethasone Sodium Phosphate (Decadron) 10 mg 1X ONCE IVP Last administered on 09/26/20at 23:22; Start 09/26/20 at 22:30; Stop 09/26/20 at 22:31; Status DC Ciprofloxacin/ Dextrose 200 ml @ 200 mls/hr 1X ONCE IV Last administered on 09/26/20at 22:41; Start 09/26/20 at 23:00; Stop 09/26/20 at 23:59; Status DC Acetaminophen (Tylenol) 1,000 mg 1X ONCE PO Last administered on 09/26/20at 22:39; Start 09/26/20 at 22:30; Stop 09/26/20 at 22:31; Status DC Albuterol Sulfate (Ventolin Neb Soln) 2.5 mg 1X ONCE NEB Last administered on 09/26/20at 23:00; Start 09/26/20 at 23:00; Stop 09/26/20 at 23:01; Status DC Magnesium Sulfate 50 ml @ 25 mls/hr 1X ONCE IV Last administered on 09/27/20at 00:22; Start 09/26/20 at 23:00; Stop 09/27/20 at 00:59; Status DC Sodium Chloride 1,000 ml @ 125 mls/hr Q8H IV Last administered on 09/27/20at 00:22; Start 09/26/20 at 23:00; Stop 09/27/20 at 22:59 Remdesivir 200 mg/ Sodium Chloride 210 ml @ 210 mls/hr 1X ONCE IV ; Start 09/27/20 at 11:00; Stop 09/27/20 at 11:59 Remdesivir 100 mg/ Sodium Chloride 230 ml @ 460 mls/hr Q24H IV ; Start 09/28/20 at 11:00; Stop 10/01/20 at 11:29 Active Scripts Active Gabapentin (Gabapentin) 300 Mg Capsule 300 Mg PO TID Cyclobenzaprine Hcl 10 Mg Tablet 1 Tab PO TID Bactrim Ds Tablet (Sulfamethoxazole/Trimethoprim) 1 Each Tablet 1 Tab PO BID 3 Days Prednisone 20 Mg Tablet 40 Mg PO DAILY 5 Days Proair Hfa Inhaler (Albuterol Sulfate) 8.5 Gm Hfa.aer.ad 2 Puff INH PRN Q4-6HRS PRN 30 Days Orphenadrine Citrate 100 Mg Tablet.er 1 Tab PO BID Reported Furosemide 40 Mg Tablet 40 Mg PO DAILY Omeprazole 40 Mg Capsule.dr 40 Mg PO DAILY Hydrochlorothiazide Capsule (Hydrochlorothiazide) 12.5 Mg Capsule 12.5 Mg PO DAILY Bupropion Xl (Bupropion Hcl) 150 Mg Tab.er.24h 150 Mg PO BID Combivent Respimat Inhal (Ipratropium/Albuterol Sulfate) 4 Gm Aer.w.adap 2 Inh IH QID ROS: Review of Systems Review of System REVIEW OF SYSTEMS: GENERAL: Denies weakness SKIN: No bruising, hair changes or rashes. EYES: No blurred, double or loss of vision. NOSE AND THROAT: No history of nosebleeds, hoarseness or sore throat. HEART: No history of palpitations, chest pain or shortness of breath on exertion. LUNGS: Denies cough, hemoptysis, wheezing or shortness of breath. GASTROINTESTINAL: Denies changes in appetite, nausea, vomiting, diarrhea or constipation. GENITOURINARY: No history of frequency, urgency, hesitancy or nocturia. NEUROLOGIC: Denies history of numbness, tingling, or tremor. PSYCHIATRIC: No history of panic, anxiety or depression. ENDOCRINE: No history of heat or cold intolerance, polyuria or polydipsia. EXTREMITIES: Denies joint pain, pain on walking or stiffness. Physical Exam: Vital Signs: Vital Signs Date Time Temp Pulse Resp B/P (MAP) Pulse Ox O2 Delivery O2 Flow Rate FiO2 09/27/20 07:00 97.4 62 20 117/66 (83) 92 Nasal Cannula 3.0 97.4 Physcial Exam: GEN: No apparent distress. Alert and oriented HEENT: Normal cephalic, atraumatic, external auditory canals are patent EYES: Extraocular muscles are intact, pupil are equally round and reactive to light and accommodation MUSCULOSKELETAL: Well developed , well nourished, good range of motion ENDOCRINE: No thyromegaly was palpated LYMPHATICS: No cervical chain or axillary nodes were noted HEMATOPOIETIC: No bruising NECK: Supple, no JVD, no thyromegaly was noted LUNGS: Clear to auscultation in all lung hutchins without rhonchi or wheezing HEART: RRR, S!, S2 present. Peripheral pulses intact, no obvious murmurs noted ABDOMEN: Soft, nontender. Positive bowel sounds, no organomegaly, normal bowel sounds EXTREMITIES: Without clubbing, cyanosis, or edema. Pedal pulses intact. Ne gative Homans sign NEUROLOGIC: Normal speech and tone. A&O x 3, moves all extremities, no obvious focal deficits PSYCHIATRIC: Normal affect, normal mood. Stable SKIN: No ulcerations or rashes, good skin turgor, no jaundice VASCULAR: Good capillary refill, neurovascular bundle appears to be intact Labs: Labs: Laboratory Tests Test 09/26/20 21:16 09/26/20 22:12 09/26/20 22:29 09/26/20 22:32 Urine Collection Type Void Urine Color Yellow Urine Clarity Cloudy Urine pH 6.5 (<5.0-8.0) Urine Specific [place] 1.020 (1.000-1.030) Urine Protein 30 mg/dL (NEG-TRACE) Urine Glucose (UA) Negative mg/dL (NEG) Urine Ketones (Stick) 15 mg/dL (NEG) Urine Blood Negative (NEG) Urine Nitrite Negative (NEG) Urine Bilirubin Small (NEG) Urine Urobilinogen Dipstick 2.0 mg/dL (0.2 mg/dL) Urine Leukocyte Esterase Moderate (NEG) Urine RBC 0 /HPF (0-2) Urine WBC 11-20 /HPF (0-4) Urine Squamous Epithelial Cells Mod /LPF Urine Bacteria Moderate /HPF (0-FEW) Urine Mucus Slight /LPF White Blood Count 5.1 x10^3/uL (4.0-11.0) Red Blood Count 5.99 x10^6/uL (3.50-5.40) Hemoglobin 17.2 g/dL (12.0-15.5) Hematocrit 50.8 % (36.0-47.0) Mean Corpuscular Volume 85 fL (79-100) Mean Corpuscular Hemoglobin 29 pg (25-35) Mean Corpuscular Hemoglobin Concent 34 g/dL (31-37) Red Cell Distribution Width 15.2 % (11.5-14.5) Platelet Count 184 x10^3/uL (140-400) Neutrophils (%) (Auto) 66 % (31-73) Lymphocytes (%) (Auto) 20 % (24-48) Monocytes (%) (Auto) 13 % (0-9) Eosinophils (%) (Auto) 0 % (0-3) Basophils (%) (Auto) 1 % (0-3) Neutrophils # (Auto) 3.4 x10^3/uL (1.8-7.7) Lymphocytes # (Auto) 1.1 x10^3/uL (1.0-4.8) Monocytes # (Auto) 0.6 x10^3/uL (0.0-1.1) Eosinophils # (Auto) 0.0 x10^3/uL (0.0-0.7) Basophils # (Auto) 0.0 x10^3/uL (0.0-0.2) Sodium Level 133 mmol/L (136-145) Potassium Level 3.3 mmol/L (3.5-5.1) Chloride Level 94 mmol/L (98-107) Carbon Dioxide Level 33 mmol/L (21-32) Anion Gap 6 (6-14) Blood Urea Nitrogen 22 mg/dL (7-20) Creatinine 1.3 mg/dL (0.6-1.0) Estimated GFR (Cockcroft-Gault) 42.4 BUN/Creatinine Ratio 17 (6-20) Glucose Level 92 mg/dL (70-99) Calcium Level 8.6 mg/dL (8.5-10.1) Magnesium Level 1.7 mg/dL (1.8-2.4) Total Bilirubin 0.6 mg/dL (0.2-1.0) Aspartate Amino Transf (AST/SGOT) 51 U/L (15-37) Alanine Aminotransferase (ALT/SGPT) 48 U/L (14-59) Alkaline Phosphatase 62 U/L (46-116) Troponin I Quantitative < 0.017 ng/mL (0.000-0.055) HN-Sqg-V-Type Natriuretic Peptide 71 pg/mL (0-124) Total Protein 6.9 g/dL (6.4-8.2) Albumin 3.2 g/dL (3.4-5.0) Albumin/Globulin Ratio 0.9 (1.0-1.7) Lipase 174 U/L (73-393) O2 Saturation 95 % (92-99) Arterial Blood pH 7.44 (7.35-7.45) Arterial Blood pCO2 at Patient Temp 45 mmHg (35-46) Arterial Blood pO2 at Patient Temp 76 mmHg (75-108) Arterial Blood HCO3 30 mmol/L (21-28) Arterial Blood Base Excess 5 mmol/L (-3-3) Oxyhemoglobin 93.2 % Methemoglobin 0.5 % (0.0-1.9) Carbon Monoxide, Quantitative 1.5 % (0.0-1.9) FiO2 32 SARS-CoV-2 Antigen (Rapid) Positive (NEGATIVE) Test 09/27/20 00:30 Troponin I Quantitative < 0.017 ng/mL (0.000-0.055) Laboratory Tests Test 09/26/20 21:16 09/26/20 22:12 09/26/20 22:29 09/26/20 22:32 Urine Collection Type Void Urine Color Yellow Urine Clarity Cloudy Urine pH 6.5 (<5.0-8.0) Urine Specific [place] 1.020 (1.000-1.030) Urine Protein 30 mg/dL (NEG-TRACE) Urine Glucose (UA) Negative mg/dL (NEG) Urine Ketones (Stick) 15 mg/dL (NEG) Urine Blood Negative (NEG) Urine Nitrite Negative (NEG) Urine Bilirubin Small (NEG) Urine Urobilinogen Dipstick 2.0 mg/dL (0.2 mg/dL) Urine Leukocyte Esterase Moderate (NEG) Urine RBC 0 /HPF (0-2) Urine WBC 11-20 /HPF (0-4) Urine Squamous Epithelial Cells Mod /LPF Urine Bacteria Moderate /HPF (0-FEW) Urine Mucus Slight /LPF White Blood Count 5.1 x10^3/uL (4.0-11.0) Red Blood Count 5.99 x10^6/uL (3.50-5.40) Hemoglobin 17.2 g/dL (12.0-15.5) Hematocrit 50.8 % (36.0-47.0) Mean Corpuscular Volume 85 fL (79-100) Mean Corpuscular Hemoglobin 29 pg (25-35) Mean Corpuscular Hemoglobin Concent 34 g/dL (31-37) Red Cell Distribution Width 15.2 % (11.5-14.5) Platelet Count 184 x10^3/uL (140-400) Neutrophils (%) (Auto) 66 % (31-73) Lymphocytes (%) (Auto) 20 % (24-48) Monocytes (%) (Auto) 13 % (0-9) Eosinophils (%) (Auto) 0 % (0-3) Basophils (%) (Auto) 1 % (0-3) Neutrophils # (Auto) 3.4 x10^3/uL (1.8-7.7) Lymphocytes # (Auto) 1.1 x10^3/uL (1.0-4.8) Monocytes # (Auto) 0.6 x10^3/uL (0.0-1.1) Eosinophils # (Auto) 0.0 x10^3/uL (0.0-0.7) Basophils # (Auto) 0.0 x10^3/uL (0.0-0.2) Sodium Level 133 mmol/L (136-145) Potassium Level 3.3 mmol/L (3.5-5.1) Chloride Level 94 mmol/L (98-107) Carbon Dioxide Level 33 mmol/L (21-32) Anion Gap 6 (6-14) Blood Urea Nitrogen 22 mg/dL (7-20) Creatinine 1.3 mg/dL (0.6-1.0) Estimated GFR (Cockcroft-Gault) 42.4 BUN/Creatinine Ratio 17 (6-20) Glucose Level 92 mg/dL (70-99) Calcium Level 8.6 mg/dL (8.5-10.1) Magnesium Level 1.7 mg/dL (1.8-2.4) Total Bilirubin 0.6 mg/dL (0.2-1.0) Aspartate Amino Transf (AST/SGOT) 51 U/L (15-37) Alanine Aminotransferase (ALT/SGPT) 48 U/L (14-59) Alkaline Phosphatase 62 U/L (46-116) Troponin I Quantitative < 0.017 ng/mL (0.000-0.055) BO-Qld-L-Type Natriuretic Peptide 71 pg/mL (0-124) Total Protein 6.9 g/dL (6.4-8.2) Albumin 3.2 g/dL (3.4-5.0) Albumin/Globulin Ratio 0.9 (1.0-1.7) Lipase 174 U/L (73-393) O2 Saturation 95 % (92-99) Arterial Blood pH 7.44 (7.35-7.45) Arterial Blood pCO2 at Patient Temp 45 mmHg (35-46) Arterial Blood pO2 at Patient Temp 76 mmHg (75-108) Arterial Blood HCO3 30 mmol/L (21-28) Arterial Blood Base Excess 5 mmol/L (-3-3) Oxyhemoglobin 93.2 % Methemoglobin 0.5 % (0.0-1.9) Carbon Monoxide, Quantitative 1.5 % (0.0-1.9) FiO2 32 SARS-CoV-2 Antigen (Rapid) Positive (NEGATIVE) Test 09/27/20 00:30 Troponin I Quantitative < 0.017 ng/mL (0.000-0.055) Images: Images CXR Impression: 1. No acute cardiopulmonary process. Assessment/Plan Assessment/Plan Acute hypoxic respiratory failure COVID-19 pneumonia Acute electrolyte derangementhyponatremia, hypochloremia due to volume depletion HERO due to vasomotor nephropathy Hypokalemia Hypomagnesemia Mild transaminitis Moderate protein malnutrition Polycythemia due to tobacco use History of tobacco misuse Admit to medicine for further management Pulmonology consult Continue IV thiamine and vitamin C IV Solu-Medrol every 8 hours IV Remdesivir Pending ferritin, LDH, CRP, D-dimer labs Titrate O2 supplementation to maintain O2 saturation greater than 92% Heparin for DVT prophylaxis Protonix while on steroids GI prophylaxis ADA diet Full code Discussed with RN and SW Disposition inpatient management as above Surrogate decision maker is the Smoking cessation: Total time spent was 12 minutes in face to face counseling. Patient has agreed to consider nicotine patches/gum or to start on Varnicline when discharged Justifications for Admission Other Justification CONNOR LUCIO MD Sep 27, 2020 09:21
[2020-09-27] MEDS ORDERED: DOCUSATE SODIUM 100 MG CAPSULE. PO PRN (09:30)
[2020-09-27] MEDS ORDERED: ACETAMINOPHEN 325 MG TABLET. PO PRN (09:30)
[2020-09-27] MEDS ORDERED: DEXTROSE 50% 25 GM / 50ML DISP.SYRIN. IV PRN (09:30)
[2020-09-27] MEDS ORDERED: PROCHLORPERAZINE 10 MG/2 ML VIAL. IV PRN (09:30)
[2020-09-27] MEDS ORDERED: ONDANSETRON PF 4 MG/2 ML VIAL. IVP PRN (09:30)
[2020-09-27] MEDS ORDERED: SENNOSIDES 8.6 MG TABLET PO PRN (09:30)
[2020-09-27 10:37] LABS: ALBUMIN 2.8 g/dL (3.4-5.0); ALBUMIN/GLOBULIN RATIO 0.9 (1.0-1.7); CALCIUM 7.9 mg/dL (8.5-10.1); CREATININE 1.2 mg/dL (0.6-1.0); GFR 46.5; POTASSIUM 3.7 mmol/L (3.5-5.1); TOTAL BILIRUBIN 0.5 mg/dL (0.2-1.0); TOTAL PROTEIN 5.9 g/dL (6.4-8.2)
[2020-09-27 11:00] VITALS: BP 101/68
[2020-09-27] MEDS ORDERED: REMDESIVIR LOAD in IV NORMAL SALINE 250ML TV IV ONE (11:00)
[2020-09-27 11:04] LABS: BASO % 1 % (0-3); EOS % 0 % (0-3); HEMATOCRIT 49.5 % (36.0-47.0); HEMOGLOBIN 16.7 g/dL (12.0-15.5); LYMPH # 0.3 x10^3/uL (1.0-4.8); LYMPH % 17 % (24-48); MEAN CORPUSCULAR HEMOGLOBIN 29 pg (25-35); MEAN CORPUSCULAR HGB CONC 34 g/dL (31-37); MEAN CORPUSCULAR VOLUME 86 fL (79-100); MONO # 0.1 x10^3/uL (0.0-1.1); MONO % 7 % (0-9); NEUT # 1.5 x10^3/uL (1.8-7.7); NEUT % 76 % (31-73); PLATELET COUNT 168 x10^3/uL (140-400); RED BLOOD COUNT 5.76 x10^6/uL (3.50-5.40)
[2020-09-27] MEDS: cefTRIAXone IV Push 1 GM VIAL. IVP SCH (11:46)
[2020-09-27] MEDS: AZITHROMYCIN 500 MG in IV NORMAL SALINE 250ML 250 ML IV SCH (11:46)
[2020-09-27] MEDS: ZINC SULFATE 220 MG CAPSULE. PO SCH (11:57)
[2020-09-27] MEDS: THIAMINE 100 MG TABLET. PO SCH (11:57)
[2020-09-27 13:54] LABS: % LYMPHS 18 % (24-48); % MONOS 3 % (0-10); % SEGS 79 % (35-66); PLT ESTIMATE ADEQUATE (ADEQUATE)
[2020-09-27] MEDS: methylPREDNISolone SOD SUCC PF 40 MG/ML VIAL. IV SCH ×2 (14:00→21:43)
[2020-09-27] MEDS: ASCORBIC ACID 1,000 MG TABLET PO SCH ×2 (14:00→21:44)
[2020-09-27 15:00] VITALS: BP 107/71
[2020-09-27] MEDS: GABAPENTIN 300 MG CAPSULE. PO SCH ×2 (16:17→21:44)
[2020-09-27] MEDS: hydroCHLOROthiazide 12.5 MG CAPSULE PO SCH (16:17)
[2020-09-27] MEDS: CYCLOBENZAPRINE 10 MG TABLET. PO SCH ×2 (16:17→21:43)
[2020-09-27] MEDS: PANTOPRAZOLE 40 MG TABLET.DR. PO SCH (16:17)
[2020-09-27 19:45] VITALS: BP 90/64
[2020-09-27] MEDS: HEPARIN for SUB-Q USE 5,000 UNIT/ML VIAL. SQ SCH (21:48)
[2020-09-27 23:35] VITALS: BP 110/67
[2020-09-28 03:50] VITALS: BP 95/52
[2020-09-28 04:21] LABS: BASO % 0 % (0-3); EOS % 0 % (0-3); HEMOGLOBIN 16.2 g/dL (12.0-15.5); LYMPH # 0.5 x10^3/uL (1.0-4.8); LYMPH % 6 % (24-48); MEAN CORPUSCULAR HEMOGLOBIN 29 pg (25-35); MEAN CORPUSCULAR HGB CONC 33 g/dL (31-37); MEAN CORPUSCULAR VOLUME 87 fL (79-100); MONO # 0.5 x10^3/uL (0.0-1.1); MONO % 6 % (0-9); NEUT # 7.7 x10^3/uL (1.8-7.7); NEUT % 88 % (31-73); PLATELET COUNT 168 x10^3/uL (140-400); RED BLOOD COUNT 5.63 x10^6/uL (3.50-5.40); RED CELL DISTRIBUTION WIDTH 15.2 % (11.5-14.5); WHITE BLOOD COUNT 8.8 x10^3/uL (4.0-11.0)
[2020-09-28 04:35] LABS: CREATININE 0.8 mg/dL (0.6-1.0); GFR 74.2; PHOSPHORUS 1.9 mg/dL (2.6-4.7); POTASSIUM 3.6 mmol/L (3.5-5.1)
[2020-09-28] MEDS: IV NORMAL SALINE 1000ML BAG 1,000 ML IV SCH (05:52)
[2020-09-28] MEDS: methylPREDNISolone SOD SUCC PF 40 MG/ML VIAL. IV SCH ×3 (05:54→22:05)
[2020-09-28 07:08] VITALS: BP 95/59
[2020-09-28] MEDS: HEPARIN for SUB-Q USE 5,000 UNIT/ML VIAL. SQ SCH ×2 (08:13→21:52)
[2020-09-28] MEDS: PANTOPRAZOLE 40 MG TABLET.DR. PO SCH (08:27)
[2020-09-28] MEDS: ASCORBIC ACID 1,000 MG TABLET PO SCH ×3 (08:27→21:52)
[2020-09-28] MEDS: hydroCHLOROthiazide 12.5 MG CAPSULE PO SCH (08:27)
[2020-09-28] MEDS: CYCLOBENZAPRINE 10 MG TABLET. PO SCH ×3 (08:27→21:52)
[2020-09-28] MEDS: THIAMINE 100 MG TABLET. PO SCH (08:28)
[2020-09-28] MEDS: ZINC SULFATE 220 MG CAPSULE. PO SCH (08:28)
[2020-09-28] MEDS: GABAPENTIN 300 MG CAPSULE. PO SCH ×3 (08:29→21:52)
[2020-09-28] MEDS: AZITHROMYCIN 500 MG in IV NORMAL SALINE 250ML 250 ML IV SCH (09:55)
[2020-09-28] MEDS: REMDESIVIR 100mg in NORMAL SALINE 250ML X 4 DAYS IV SCH (11:04)
[2020-09-28 11:10] VITALS: BP 113/66
--- NOTE | 2020-09-28 11:59 | PDOC ---
[employer] PROGRESS NOTE Date of Service DOS: DATE: 09/28/20 TIME: 11:58 Chief Complaint Chief Complaint Assessment/Plan Acute hypoxic respiratory failure COVID-19 pneumonia Acute electrolyte derangementhyponatremia, hypochloremia due to volume depletion HERO due to vasomotor nephropathy Hypokalemia Hypomagnesemia Mild transaminitis Moderate protein malnutrition Polycythemia due to tobacco use History of tobacco misuse Admit to medicine for further management Pulmonology consult Continue IV thiamine and vitamin C IV Solu-Medrol every 8 hours IV Remdesivir Pending ferritin, LDH, CRP, D-dimer labs Titrate O2 supplementation to maintain O2 saturation greater than 92% Heparin for DVT prophylaxis Protonix while on steroids GI prophylaxis ADA diet Full code Discussed with RN and SW Disposition inpatient management as above Surrogate decision maker is the History of Present Illness History of Present Illness 54 year old female who presents with 1 week of no appetite and fatigue. Went to her doctor and was diagnosed with a urinary tract infection and they placed her on antibiotics. She does have a chronic cough. She states that she was around somebody with Covid 3 weeks ago and that she quarantine. Patient was tested last year on September 12 and her Covid was negative. Was also hospitalized around that time with pneumonia here at [place]. Patient has a history of hypertension, COPD, pulmonary edema, hypothyroidism, smoker. 09/28/2020 No acute events overnight. Patient saturating 90% on 3 L nasal cannula. No dyspnea reported. No concerns from nursing. Urine culture is contaminated. patient's chart, labs, images were reviewed and discussed with RN Vitals/I&O Vitals/I&O: Vital Signs Date Time Temp Pulse Resp B/P (MAP) Pulse Ox O2 Delivery O2 Flow Rate FiO2 09/28/20 11:10 97.9 69 20 113/66 (82) 92 Nasal Cannula 3.0 97.9 I & O0 09/27/20 09/27/20 09/28/20 15:00 23:00 07:00 Intake Total 320 ml 300 ml 440 ml Balance 320 ml 300 ml 440 ml Physical Exam Lungs: Wheezing Labs Labs: Laboratory Tests Test 09/28/20 03:30 White Blood Count 8.8 x10^3/uL (4.0-11.0) Red Blood Count 5.63 x10^6/uL (3.50-5.40) Hemoglobin 16.2 g/dL (12.0-15.5) Hematocrit 49.0 % (36.0-47.0) Mean Corpuscular Volume 87 fL (79-100) Mean Corpuscular Hemoglobin 29 pg (25-35) Mean Corpuscular Hemoglobin Concent 33 g/dL (31-37) Red Cell Distribution Width 15.2 % (11.5-14.5) Platelet Count 168 x10^3/uL (140-400) Neutrophils (%) (Auto) 88 % (31-73) Lymphocytes (%) (Auto) 6 % (24-48) Monocytes (%) (Auto) 6 % (0-9) Eosinophils (%) (Auto) 0 % (0-3) Basophils (%) (Auto) 0 % (0-3) Neutrophils # (Auto) 7.7 x10^3/uL (1.8-7.7) Lymphocytes # (Auto) 0.5 x10^3/uL (1.0-4.8) Monocytes # (Auto) 0.5 x10^3/uL (0.0-1.1) Eosinophils # (Auto) 0.0 x10^3/uL (0.0-0.7) Basophils # (Auto) 0.0 x10^3/uL (0.0-0.2) Sodium Level 140 mmol/L (136-145) Potassium Level 3.6 mmol/L (3.5-5.1) Chloride Level 105 mmol/L (98-107) Carbon Dioxide Level 27 mmol/L (21-32) Anion Gap 8 (6-14) Blood Urea Nitrogen 18 mg/dL (7-20) Creatinine 0.8 mg/dL (0.6-1.0) Estimated GFR (Cockcroft-Gault) 74.2 Glucose Level 154 mg/dL (70-99) Calcium Level 8.0 mg/dL (8.5-10.1) Phosphorus Level 1.9 mg/dL (2.6-4.7) Magnesium Level 2.0 mg/dL (1.8-2.4) Assessment and Plan Assessmemt and Plan Problems Medical Problems: (1) COPD exacerbation Status: Acute (2) COVID-19 Status: Acute (3) Hypomagnesemia Status: Acute (4) Hypoxia Status: Acute (5) Person under investigation for COVID-19 Status: Acute (6) UTI (urinary tract infection) Status: Acute Comment Review of Relevant I have reviewed the following items dipak (where applicable) has been applied. Medications: Current Medications Medications (Trade) Dose Ordered Sig/Donn Route PRN Reason Start Time Stop Time Status Last Admin Dose Admin Remdesivir 100 mg/ Sodium Chloride 230 ml @ 460 mls/hr Q24H IV 09/28/20 11:00 10/01/20 11:29 09/28/20 11:04 Ascorbic Acid (Vitamin C) 3,000 mg TID PO 09/27/20 14:00 09/28/20 08:27 Methylprednisolone Sodium Succinate (SOLU-Medrol 40MG VIAL) 40 mg Q8HRS IV 09/27/20 14:00 09/28/20 05:54 Thiamine Mononitrate (Vitamin B-1) 300 mg DAILY PO 09/27/20 12:00 09/28/20 08:28 Zinc Sulfate (Orazinc) 220 mg DAILY PO 09/27/20 12:00 09/28/20 08:28 Ceftriaxone Sodium (Rocephin) 1 gm Q24H IVP 09/27/20 12:00 09/27/20 11:46 Heparin Sodium (Porcine) (Heparin Sodium) 5,000 unit Q12HR SQ 09/27/20 21:00 09/28/20 08:13 Pantoprazole Sodium (Protonix) 40 mg DAILYAC PO 09/27/20 14:30 09/28/20 08:27 Cyclobenzaprine HCl (Flexeril) 10 mg TID PO 09/27/20 15:00 09/28/20 08:27 Gabapentin (Neurontin) 300 mg TID PO 09/27/20 15:00 09/28/20 08:29 Hydrochlorothiazide (Microzide) 12.5 mg DAILY PO 09/27/20 15:00 09/28/20 08:27 Justifications for Admission Other Justification COVID-19 pneumonia CONNOR LUCIO MD Sep 28, 2020 11:59
[2020-09-28] MEDS: cefTRIAXone IV Push 1 GM VIAL. IVP SCH (12:48)
[2020-09-28 15:00] VITALS: BP 127/68
[2020-09-28 19:00] VITALS: BP 114/65
[2020-09-28] MEDS: LACTOBACILLUS RHAMNOSUS GG 1 CAPSULE. PO SCH (21:52)
[2020-09-28 23:00] VITALS: BP 105/52
[2020-09-29 03:00] VITALS: BP 95/56
[2020-09-29 06:30] VITALS: BP 106/59
[2020-09-29] MEDS: methylPREDNISolone SOD SUCC PF 40 MG/ML VIAL. IV SCH ×3 (06:53→21:22)
[2020-09-29 07:28] LABS: CREATININE 0.7 mg/dL (0.6-1.0); GFR 86.6; MAGNESIUM 1.8 mg/dL (1.8-2.4); POTASSIUM 3.5 mmol/L (3.5-5.1)
[2020-09-29 07:57] LABS: BASO % 0 % (0-3); EOS % 0 % (0-3); HEMATOCRIT 45.1 % (36.0-47.0); LYMPH # 0.5 x10^3/uL (1.0-4.8); LYMPH % 5 % (24-48); MEAN CORPUSCULAR HEMOGLOBIN 29 pg (25-35); MEAN CORPUSCULAR HGB CONC 33 g/dL (31-37); MEAN CORPUSCULAR VOLUME 87 fL (79-100); MONO # 0.6 x10^3/uL (0.0-1.1); MONO % 5 % (0-9); NEUT % 90 % (31-73); PLATELET COUNT 207 x10^3/uL (140-400); RED CELL DISTRIBUTION WIDTH 15.1 % (11.5-14.5); WHITE BLOOD COUNT 11.2 x10^3/uL (4.0-11.0)
[2020-09-29] MEDS: ASCORBIC ACID 1,000 MG TABLET PO SCH ×3 (09:26→21:22)
[2020-09-29] MEDS: LACTOBACILLUS RHAMNOSUS GG 1 CAPSULE. PO SCH ×2 (09:26→21:22)
[2020-09-29] MEDS: THIAMINE 100 MG TABLET. PO SCH (09:26)
[2020-09-29] MEDS: CYCLOBENZAPRINE 10 MG TABLET. PO SCH ×3 (09:26→21:22)
[2020-09-29] MEDS: GABAPENTIN 300 MG CAPSULE. PO SCH ×3 (09:26→21:22)
[2020-09-29] MEDS: hydroCHLOROthiazide 12.5 MG CAPSULE PO SCH (09:26)
[2020-09-29] MEDS: ZINC SULFATE 220 MG CAPSULE. PO SCH (09:26)
[2020-09-29] MEDS: PANTOPRAZOLE 40 MG TABLET.DR. PO SCH (09:26)
[2020-09-29] MEDS: HEPARIN for SUB-Q USE 5,000 UNIT/ML VIAL. SQ SCH ×2 (09:35→21:20)
[2020-09-29 10:27] LABS: % BANDS 4 % (0-9); % LYMPHS 3 % (24-48); % MONOS 3 % (0-10); % SEGS 90 % (35-66); PLT ESTIMATE ADEQUATE (ADEQUATE)
[2020-09-29] MEDS: REMDESIVIR 100mg in NORMAL SALINE 250ML X 4 DAYS IV SCH (11:21)
[2020-09-29 11:30] VITALS: BP 105/61
--- NOTE | 2020-09-29 11:31 | PDOC ---
PROGRESS NOTES Date of Service: DATE: 09/29/20 TIME: 11:30 Chief Complaint Chief Complaint Assessment/Plan Acute hypoxic respiratory failure COVID-19 pneumonia Acute electrolyte derangementhyponatremia, hypochloremia due to volume depletion HERO due to vasomotor nephropathy Hypokalemia Hypomagnesemia Mild transaminitis Moderate protein malnutrition Polycythemia due to tobacco use History of tobacco misuse Admit to medicine for further management Pulmonology consult Continue IV thiamine and vitamin C IV Solu-Medrol every 8 hours IV Remdesivir Pending ferritin, LDH, CRP, D-dimer labs Titrate O2 supplementation to maintain O2 saturation greater than 92% Heparin for DVT prophylaxis Protonix while on steroids GI prophylaxis ADA diet Full code Discussed with RN and SW Disposition inpatient management as above Surrogate decision maker is the History of Present Illness History of Present Illness 54 year old female who presents with 1 week of no appetite and fatigue. Went to her doctor and was diagnosed with a urinary tract infection and they placed her on antibiotics. She does have a chronic cough. She states that she was around somebody with Covid 3 weeks ago and that she quarantine. Patient was tested last year on September 12 and her Covid was negative. Was also hospitalized around that time with pneumonia here at [facility]. Patient has a history of hypertension, COPD, pulmonary edema, hypothyroidism, smoker. 09/28/2020 No acute events overnight. Patient saturating 90% on 3 L nasal cannula. No dyspnea reported. No concerns from nursing. Urine culture is contaminated. patient's chart, labs, images were reviewed and discussed with RN 09/29/2020 Patient saturating 96% on 3 L nasal cannula. No dyspnea reported. No concerns from nursing. Urine culture is contaminated. patient's chart, labs, images were reviewed and discussed with RN Continue present oxygen at 3 liters. Continue steroids and finish 10-day course. Initiated remdesivir. D/W RN Vitals Vitals Vital Signs Date Time Temp Pulse Resp B/P (MAP) Pulse Ox O2 Delivery O2 Flow Rate FiO2 09/29/20 06:30 97.6 61 20 106/59 (75) 92 Nasal Cannula 2.0 97.6 Physical Exam Physical Exam GEN: No apparent distress. Alert and oriented HEENT: Normal cephalic, atraumatic, external auditory canals are patent EYES: Extraocular muscles are intact, pupil are equally round and reactive to light and accommodation MUSCULOSKELETAL: Well developed , well nourished, good range of motion ENDOCRINE: No thyromegaly was palpated LYMPHATICS: No cervical chain or axillary nodes were noted HEMATOPOIETIC: No bruising NECK: Supple, no JVD, no thyromegaly was noted LUNGS: Clear to auscultation in all lung hutchins without rhonchi or wheezing HEART: RRR, S!, S2 present. Peripheral pulses intact, no obvious murmurs noted ABDOMEN: Soft, nontender. Positive bowel sounds, no organomegaly, normal bowel sounds EXTREMITIES: Without clubbing, cyanosis, or edema. Pedal pulses intact. Negative Homans sign NEUROLOGIC: Normal speech and tone. A&O x 3, moves all extremities, no obvious focal deficits PSYCHIATRIC: Normal affect, normal mood. Stable SKIN: No ulcerations or rashes, good skin turgor, no jaundice VASCULAR: Good capillary refill, neurovascular bundle appears to be intact General: Alert, Oriented X3, Cooperative, No acute distress Heart: Regular rate Lungs: Wheezing Labs LABS PATIENT: SANDRO ELLIS ACCOUNT: [id number] : 1965 LOCATION: ER AGE: 54 SEX: F EXAM STATUS: REG ER ORD. PHYSICIAN: LACEY COWAN APRN REASON: soa PROCEDURE: PORTABLE CHEST 1V Exam: Chest one view INDICATION: Short of air TECHNIQUE: Frontal view of the chest Comparisons: 09/11/2020 FINDINGS: The cardiomediastinal silhouette and pulmonary vessels are within normal limits. The lung and pleural spaces are clear. IMPRESSION: No acute cardiopulmonary process. Electronically signed by: Iman Gutierrez MD (09/26/2020 10:38 PM) [facility] DICTATED and SIGNED BY: IMAN GUTIERREZ MD DATE: 09/26/20 [id number] Laboratory Tests Test 09/29/20 06:15 09/29/20 06:20 White Blood Count 11.2 x10^3/uL (4.0-11.0) Red Blood Count 5.20 x10^6/uL (3.50-5.40) Hemoglobin 15.0 g/dL (12.0-15.5) Hematocrit 45.1 % (36.0-47.0) Mean Corpuscular Volume 87 fL (79-100) Mean Corpuscular Hemoglobin 29 pg (25-35) Mean Corpuscular Hemoglobin Concent 33 g/dL (31-37) Red Cell Distribution Width 15.1 % (11.5-14.5) Platelet Count 207 x10^3/uL (140-400) Neutrophils (%) (Auto) 90 % (31-73) Lymphocytes (%) (Auto) 5 % (24-48) Monocytes (%) (Auto) 5 % (0-9) Eosinophils (%) (Auto) 0 % (0-3) Basophils (%) (Auto) 0 % (0-3) Neutrophils # (Auto) 10.0 x10^3/uL (1.8-7.7) Lymphocytes # (Auto) 0.5 x10^3/uL (1.0-4.8) Monocytes # (Auto) 0.6 x10^3/uL (0.0-1.1) Eosinophils # (Auto) 0.0 x10^3/uL (0.0-0.7) Basophils # (Auto) 0.0 x10^3/uL (0.0-0.2) Segmented Neutrophils % 90 % (35-66) Band Neutrophils % 4 % (0-9) Lymphocytes % 3 % (24-48) Monocytes % 3 % (0-10) Platelet Estimate Adequate (ADEQUATE) Sodium Level 142 mmol/L (136-145) Potassium Level 3.5 mmol/L (3.5-5.1) Chloride Level 106 mmol/L (98-107) Carbon Dioxide Level 32 mmol/L (21-32) Anion Gap 4 (6-14) Blood Urea Nitrogen 15 mg/dL (7-20) Creatinine 0.7 mg/dL (0.6-1.0) Estimated GFR (Cockcroft-Gault) 86.6 Glucose Level 144 mg/dL (70-99) Calcium Level 8.0 mg/dL (8.5-10.1) Magnesium Level 1.8 mg/dL (1.8-2.4) Assessment and Plan Assessmemt and Plan Problems Medical Problems: (1) COPD exacerbation Status: Acute (2) COVID-19 Status: Acute (3) Hypomagnesemia Status: Acute (4) Hypoxia Status: Acute (5) Person under investigation for COVID-19 Status: Acute (6) UTI (urinary tract infection) Status: Acute Comment Review of Relevant I have reviewed the following items dipak (where applicable) has been applied. Labs Laboratory Tests Test 09/28/20 03:30 09/29/20 06:15 09/29/20 06:20 White Blood Count 8.8 x10^3/uL (4.0-11.0) 11.2 x10^3/uL (4.0-11.0) Red Blood Count 5.63 x10^6/uL (3.50-5.40) 5.20 x10^6/uL (3.50-5.40) Hemoglobin 16.2 g/dL (12.0-15.5) 15.0 g/dL (12.0-15.5) Hematocrit 49.0 % (36.0-47.0) 45.1 % (36.0-47.0) Mean Corpuscular Volume 87 fL (79-100) 87 fL (79-100) Mean Corpuscular Hemoglobin 29 pg (25-35) 29 pg (25-35) Mean Corpuscular Hemoglobin Concent 33 g/dL (31-37) 33 g/dL (31-37) Red Cell Distribution Width 15.2 % (11.5-14.5) 15.1 % (11.5-14.5) Platelet Count 168 x10^3/uL (140-400) 207 x10^3/uL (140-400) Neutrophils (%) (Auto) 88 % (31-73) 90 % (31-73) Lymphocytes (%) (Auto) 6 % (24-48) 5 % (24-48) Monocytes (%) (Auto) 6 % (0-9) 5 % (0-9) Eosinophils (%) (Auto) 0 % (0-3) 0 % (0-3) Basophils (%) (Auto) 0 % (0-3) 0 % (0-3) Neutrophils # (Auto) 7.7 x10^3/uL (1.8-7.7) 10.0 x10^3/uL (1.8-7.7) Lymphocytes # (Auto) 0.5 x10^3/uL (1.0-4.8) 0.5 x10^3/uL (1.0-4.8) Monocytes # (Auto) 0.5 x10^3/uL (0.0-1.1) 0.6 x10^3/uL (0.0-1.1) Eosinophils # (Auto) 0.0 x10^3/uL (0.0-0.7) 0.0 x10^3/uL (0.0-0.7) Basophils # (Auto) 0.0 x10^3/uL (0.0-0.2) 0.0 x10^3/uL (0.0-0.2) Sodium Level 140 mmol/L (136-145) 142 mmol/L (136-145) Potassium Level 3.6 mmol/L (3.5-5.1) 3.5 mmol/L (3.5-5.1) Chloride Level 105 mmol/L (98-107) 106 mmol/L (98-107) Carbon Dioxide Level 27 mmol/L (21-32) 32 mmol/L (21-32) Anion Gap 8 (6-14) 4 (6-14) Blood Urea Nitrogen 18 mg/dL (7-20) 15 mg/dL (7-20) Creatinine 0.8 mg/dL (0.6-1.0) 0.7 mg/dL (0.6-1.0) Estimated GFR (Cockcroft-Gault) 74.2 86.6 Glucose Level 154 mg/dL (70-99) 144 mg/dL (70-99) Calcium Level 8.0 mg/dL (8.5-10.1) 8.0 mg/dL (8.5-10.1) Phosphorus Level 1.9 mg/dL (2.6-4.7) Magnesium Level 2.0 mg/dL (1.8-2.4) 1.8 mg/dL (1.8-2.4) Segmented Neutrophils % 90 % (35-66) Band Neutrophils % 4 % (0-9) Lymphocytes % 3 % (24-48) Monocytes % 3 % (0-10) Platelet Estimate Adequate (ADEQUATE) Laboratory Tests Test 09/29/20 06:15 09/29/20 06:20 White Blood Count 11.2 x10^3/uL (4.0-11.0) Red Blood Count 5.20 x10^6/uL (3.50-5.40) Hemoglobin 15.0 g/dL (12.0-15.5) Hematocrit 45.1 % (36.0-47.0) Mean Corpuscular Volume 87 fL (79-100) Mean Corpuscular Hemoglobin 29 pg (25-35) Mean Corpuscular Hemoglobin Concent 33 g/dL (31-37) Red Cell Distribution Width 15.1 % (11.5-14.5) Platelet Count 207 x10^3/uL (140-400) Neutrophils (%) (Auto) 90 % (31-73) Lymphocytes (%) (Auto) 5 % (24-48) Monocytes (%) (Auto) 5 % (0-9) Eosinophils (%) (Auto) 0 % (0-3) Basophils (%) (Auto) 0 % (0-3) Neutrophils # (Auto) 10.0 x10^3/uL (1.8-7.7) Lymphocytes # (Auto) 0.5 x10^3/uL (1.0-4.8) Monocytes # (Auto) 0.6 x10^3/uL (0.0-1.1) Eosinophils # (Auto) 0.0 x10^3/uL (0.0-0.7) Basophils # (Auto) 0.0 x10^3/uL (0.0-0.2) Segmented Neutrophils % 90 % (35-66) Band Neutrophils % 4 % (0-9) Lymphocytes % 3 % (24-48) Monocytes % 3 % (0-10) Platelet Estimate Adequate (ADEQUATE) Sodium Level 142 mmol/L (136-145) Potassium Level 3.5 mmol/L (3.5-5.1) Chloride Level 106 mmol/L (98-107) Carbon Dioxide Level 32 mmol/L (21-32) Anion Gap 4 (6-14) Blood Urea Nitrogen 15 mg/dL (7-20) Creatinine 0.7 mg/dL (0.6-1.0) Estimated GFR (Cockcroft-Gault) 86.6 Glucose Level 144 mg/dL (70-99) Calcium Level 8.0 mg/dL (8.5-10.1) Magnesium Level 1.8 mg/dL (1.8-2.4) Microbiology 09/26/20 Urine Culture - Final, Complete Medications Current Medications Dexamethasone Sodium Phosphate (Decadron) 10 mg 1X ONCE IVP Last administered on 09/26/20 23:22; Start 09/26/20 at 22:30; Stop 09/26/20 at 22:31; Status DC Ciprofloxacin/ Dextrose 200 ml @ 200 mls/hr 1X ONCE IV Last administered on 09/26/20at 22:41; Start 09/26/20 at 23:00; Stop 09/26/20 at 23:59; Status DC Acetaminophen (Tylenol) 1,000 mg 1X ONCE PO Last administered on 09/26/20at 22:39; Start 09/26/20 at 22:30; Stop 09/26/20 at 22:31; Status DC Albuterol Sulfate (Ventolin Neb Soln) 2.5 mg 1X ONCE NEB Last administered on 09/26/20 23:00; Start 09/26/20 at 23:00; Stop 09/26/20 at 23:01; Status DC Magnesium Sulfate 50 ml @ 25 mls/hr 1X ONCE IV Last administered on 09/27/20at 00:22; Start 09/26/20 at 23:00; Stop 09/27/20 at 00:59; Status DC Sodium Chloride 1,000 ml @ 125 mls/hr Q8H IV Last administered on 09/27/20at 09:24; Start 09/26/20 at 23:00; Stop 09/27/20 at 22:59; Status DC Remdesivir 200 mg/ Sodium Chloride 210 ml @ 210 mls/hr 1X ONCE IV Last administered on 09/27/20at 09:24; Start 09/27/20 at 11:00; Stop 09/27/20 at 11:59; Status DC Remdesivir 100 mg/ Sodium Chloride 230 ml @ 460 mls/hr Q24H IV Last administered on 09/29/20 11:21; Start 09/28/20 at 11:00; Stop 10/01/20 at 11:29 Ascorbic Acid (Vitamin C) 3,000 mg TID PO Last administered on 09/29/20at 09:26; Start 09/27/20 at 14:00 Methylprednisolone Sodium Succinate (SOLU-Medrol 40MG VIAL) 40 mg Q8HRS IV Last administered on 09/29/20at 06:53; Start 09/27/20 at 14:00 Thiamine Mononitrate (Vitamin B-1) 300 mg DAILY PO Last administered on 09/29/20 09:26; Start 09/27/20 at 12:00 Zinc Sulfate (Orazinc) 220 mg DAILY PO Last administered on 09/29/20 09:26; Start 09/27/20 at 12:00 Sennosides (Senna) 17.2 mg PRN BID PRN PO CONSTIPATION; Start 09/27/20 at 09:30 Docusate Sodium (Colace) 100 mg PRN DAILY PRN PO HARD STOOLS; Start 09/27/20 at 09:30 Ondansetron HCl (Zofran) 4 mg PRN Q6HRS PRN IVP NAUSEA/VOMITING; Start 09/27/20 at 09:30 Dextrose (Dextrose 50%-Water Syringe) 12.5 gm PRN Q15MIN PRN IV SEE COMMENTS; Start 09/27/20 at 09:30 Sodium Chloride 1,000 ml @ 100 mls/hr Q10H IV Last administered on 09/28/20at 05:52; Start 09/27/20 at 09:30; Stop 09/28/20 at 09:05; Status DC Acetaminophen (Tylenol) 650 mg PRN Q4HRS PRN PO TEMP OVER 100.4F OR MILD PAIN; Start 09/27/20 at 09:30 Azithromycin 500 mg/Sodium Chloride 250 ml @ 250 mls/hr Q24H IV Last administered on 09/28/20at 09:55; Start 09/27/20 at 11:00 Ceftriaxone Sodium (Rocephin) 1 gm Q24H IVP Last administered on 09/28/20at 12:48; Start 09/27/20 at 12:00 Prochlorperazine Edisylate (Compazine) 10 mg PRN Q6HRS PRN IV NAUSEA/VOMITING - 2ND CHOICE; Start 09/27/20 at 09:30 Heparin Sodium (Porcine) (Heparin Sodium) 5,000 unit Q12HR SQ Last administered on 09/29/20at 09:35; Start 09/27/20 at 21:00 Pantoprazole Sodium (Protonix) 40 mg DAILYAC PO Last administered on 09/29/20at 09:26; Start 09/27/20 at 14:30 Cyclobenzaprine HCl (Flexeril) 10 mg TID PO Last administered on 09/29/20at 09:26; Start 09/27/20 at 15:00 Gabapentin (Neurontin) 300 mg TID PO Last administered on 09/29/20at 09:26; Start 09/27/20 at 15:00 Hydrochlorothiazide (Microzide) 12.5 mg DAILY PO Last administered on 09/29/20 09:26; Start 09/27/20 at 15:00 Lactobacillus Rhamnosus (Culturelle) 1 cap BID PO Last administered on 09/29/20at 09:26; Start 09/28/20 at 21:00 Active Scripts Active Gabapentin (Gabapentin) 300 Mg Capsule 300 Mg PO TID Cyclobenzaprine Hcl 10 Mg Tablet 1 Tab PO TID Bactrim Ds Tablet (Sulfamethoxazole/Trimethoprim) 1 Each Tablet 1 Tab PO BID 3 Days Prednisone 20 Mg Tablet 40 Mg PO DAILY 5 Days Proair Hfa Inhaler (Albuterol Sulfate) 8.5 Gm Hfa.aer.ad 2 Puff INH PRN Q4-6HRS PRN 30 Days Orphenadrine Citrate 100 Mg Tablet.er 1 Tab PO BID Reported Furosemide 40 Mg Tablet 40 Mg PO DAILY Omeprazole 40 Mg Capsule.dr 40 Mg PO DAILY Hydrochlorothiazide Capsule (Hydrochlorothiazide) 12.5 Mg Capsule 12.5 Mg PO DAILY Bupropion Xl (Bupropion Hcl) 150 Mg Tab.er.24h 150 Mg PO BID Combivent Respimat Inhal (Ipratropium/Albuterol Sulfate) 4 Gm Aer.w.adap 2 Inh IH QID Vitals/I & O Vital Sign - Last 24 Hours 09/28/20 09/28/20 09/28/20 09/28/20 15:00 19:00 20:30 23:00 Temp 97.9 98.1 98.6 97.9 98.1 98.6 Pulse 67 69 63 Resp 20 20 20 B/P (MAP) 127/68 (87) 114/65 (81) 105/52 (69) Pulse Ox 91 93 92 O2 Delivery Nasal Cannula Nasal Cannula Nasal Cannula Nasal Cannula O2 Flow Rate 3.0 2.0 2.0 1.0 09/29/20 09/29/20 03:00 06:30 Temp 97.5 97.6 97.5 97.6 Pulse 67 61 Resp 20 20 B/P (MAP) 95/56 (69) 106/59 (75) Pulse Ox 91 92 O2 Delivery Nasal Cannula Nasal Cannula O2 Flow Rate 2.0 2.0 Intake and Output 09/28/20 09/28/20 09/29/20 15:00 23:00 07:00 Intake Total 400 ml 600 ml 600 ml Balance 400 ml 600 ml 600 ml Justicifation of Admission Dx: Justifications for Admission: Justification of Admission Dx: Yes Acute COPD Exacerbation: Acute COPD Exacerbation RADHA COOK MD Sep 29, 2020 11:31
[2020-09-29] MEDS: AZITHROMYCIN 500 MG in IV NORMAL SALINE 250ML 250 ML IV SCH (12:06)
[2020-09-29] MEDS: cefTRIAXone IV Push 1 GM VIAL. IVP SCH (13:07)
[2020-09-29] MEDS: ALBUTEROL SULFATE 8GM INHALER. INH PRN ×2 (13:07→21:30)
[2020-09-29 15:30] VITALS: BP 126/68
[2020-09-29 19:00] VITALS: BP 105/64
[2020-09-29 23:00] VITALS: BP 97/58
[2020-09-30 03:00] VITALS: BP 109/69
[2020-09-30] MEDS: methylPREDNISolone SOD SUCC PF 40 MG/ML VIAL. IV SCH (06:32)
[2020-09-30 07:00] VITALS: BP 144/75
[2020-09-30] MEDS: PANTOPRAZOLE 40 MG TABLET.DR. PO SCH (07:56)
[2020-09-30] MEDS: GABAPENTIN 300 MG CAPSULE. PO SCH (08:37)
[2020-09-30] MEDS: THIAMINE 100 MG TABLET. PO SCH (08:37)
[2020-09-30] MEDS: ZINC SULFATE 220 MG CAPSULE. PO SCH (08:37)
[2020-09-30] MEDS: CYCLOBENZAPRINE 10 MG TABLET. PO SCH (08:37)
[2020-09-30] MEDS: ASCORBIC ACID 1,000 MG TABLET PO SCH (08:37)
[2020-09-30] MEDS: hydroCHLOROthiazide 12.5 MG CAPSULE PO SCH (08:37)
[2020-09-30] MEDS: LACTOBACILLUS RHAMNOSUS GG 1 CAPSULE. PO SCH (08:37)
[2020-09-30 08:55] LABS: BASO % 0 % (0-3); EOS % 0 % (0-3); HEMATOCRIT 47.2 % (36.0-47.0); HEMOGLOBIN 15.6 g/dL (12.0-15.5); LYMPH # 0.4 x10^3/uL (1.0-4.8); LYMPH % 6 % (24-48); MEAN CORPUSCULAR HEMOGLOBIN 29 pg (25-35); MEAN CORPUSCULAR HGB CONC 33 g/dL (31-37); MEAN CORPUSCULAR VOLUME 87 fL (79-100); MONO # 0.5 x10^3/uL (0.0-1.1); MONO % 7 % (0-9); NEUT # 5.9 x10^3/uL (1.8-7.7); NEUT % 87 % (31-73); PLATELET COUNT 216 x10^3/uL (140-400); RED BLOOD COUNT 5.42 x10^6/uL (3.50-5.40); RED CELL DISTRIBUTION WIDTH 15.1 % (11.5-14.5); WHITE BLOOD COUNT 6.8 x10^3/uL (4.0-11.0)
--- NOTE | 2020-09-30 09:07 | NUR ---
Patient left AMA at 0900. -Patient put questioned documents examiner light at 0845 and told me that her daughter was in the ER here at [facility] and sick and no one was at home taking care of her grandkids. She stated that she needed to leave now and couldn't wait on the doctor. I removed her IV and had her sign AMA paperwork. She was taken by wheelchair down to the ER, and a nurse in the ER came out and brought her keys to her daughter's car and she left the premises. I explained the need to stay, and she stated understanding.
--- NOTE | 2020-09-30 09:51 | PDOC3 ---
Discharge Summary Visit Information Date of Admission: Sep 26, 2020 Date of Discharge: Sep 30, 2020 Final Diagnosis Problems Medical Problems: (1) COPD exacerbation Status: Acute (2) COVID-19 Status: Acute (3) Hypomagnesemia Status: Acute (4) Hypoxia Status: Acute (5) Person under investigation for COVID-19 Status: Acute (6) UTI (urinary tract infection) Status: Acute Brief Hospital Course Allergies Allergies Coded Allergies Type Severity Reaction Last Updated Verified amoxicillin Allergy Severe SOB,RASH 09/24/20 Yes clavulanic acid Allergy Severe SOB 09/24/20 Yes codeine Allergy Severe SOB 09/24/20 Yes Vital Signs Vital Signs Date Time Temp Pulse Resp B/P (MAP) Pulse Ox O2 Delivery O2 Flow Rate FiO2 09/30/20 07:00 98.3 67 18 144/75 (98) 93 Nasal Cannula 2.0 98.3 Lab Results Laboratory Tests Test 09/29/20 06:15 09/29/20 06:20 09/30/20 08:10 White Blood Count 11.2 x10^3/uL (4.0-11.0) 6.8 x10^3/uL (4.0-11.0) Red Blood Count 5.20 x10^6/uL (3.50-5.40) 5.42 x10^6/uL (3.50-5.40) Hemoglobin 15.0 g/dL (12.0-15.5) 15.6 g/dL (12.0-15.5) Hematocrit 45.1 % (36.0-47.0) 47.2 % (36.0-47.0) Mean Corpuscular Volume 87 fL (79-100) 87 fL (79-100) Mean Corpuscular Hemoglobin 29 pg (25-35) 29 pg (25-35) Mean Corpuscular Hemoglobin Concent 33 g/dL (31-37) 33 g/dL (31-37) Red Cell Distribution Width 15.1 % (11.5-14.5) 15.1 % (11.5-14.5) Platelet Count 207 x10^3/uL (140-400) 216 x10^3/uL (140-400) Neutrophils (%) (Auto) 90 % (31-73) 87 % (31-73) Lymphocytes (%) (Auto) 5 % (24-48) 6 % (24-48) Monocytes (%) (Auto) 5 % (0-9) 7 % (0-9) Eosinophils (%) (Auto) 0 % (0-3) 0 % (0-3) Basophils (%) (Auto) 0 % (0-3) 0 % (0-3) Neutrophils # (Auto) 10.0 x10^3/uL (1.8-7.7) 5.9 x10^3/uL (1.8-7.7) Lymphocytes # (Auto) 0.5 x10^3/uL (1.0-4.8) 0.4 x10^3/uL (1.0-4.8) Monocytes # (Auto) 0.6 x10^3/uL (0.0-1.1) 0.5 x10^3/uL (0.0-1.1) Eosinophils # (Auto) 0.0 x10^3/uL (0.0-0.7) 0.0 x10^3/uL (0.0-0.7) Basophils # (Auto) 0.0 x10^3/uL (0.0-0.2) 0.0 x10^3/uL (0.0-0.2) Segmented Neutrophils % 90 % (35-66) Band Neutrophils % 4 % (0-9) Lymphocytes % 3 % (24-48) Monocytes % 3 % (0-10) Platelet Estimate Adequate (ADEQUATE) Sodium Level 142 mmol/L (136-145) Potassium Level 3.5 mmol/L (3.5-5.1) Chloride Level 106 mmol/L (98-107) Carbon Dioxide Level 32 mmol/L (21-32) Anion Gap 4 (6-14) Blood Urea Nitrogen 15 mg/dL (7-20) Creatinine 0.7 mg/dL (0.6-1.0) Estimated GFR (Cockcroft-Gault) 86.6 Glucose Level 144 mg/dL (70-99) Calcium Level 8.0 mg/dL (8.5-10.1) Magnesium Level 1.8 mg/dL (1.8-2.4) Laboratory Tests Test 09/30/20 08:10 White Blood Count 6.8 x10^3/uL (4.0-11.0) Red Blood Count 5.42 x10^6/uL (3.50-5.40) Hemoglobin 15.6 g/dL (12.0-15.5) Hematocrit 47.2 % (36.0-47.0) Mean Corpuscular Volume 87 fL (79-100) Mean Corpuscular Hemoglobin 29 pg (25-35) Mean Corpuscular Hemoglobin Concent 33 g/dL (31-37) Red Cell Distribution Width 15.1 % (11.5-14.5) Platelet Count 216 x10^3/uL (140-400) Neutrophils (%) (Auto) 87 % (31-73) Lymphocytes (%) (Auto) 6 % (24-48) Monocytes (%) (Auto) 7 % (0-9) Eosinophils (%) (Auto) 0 % (0-3) Basophils (%) (Auto) 0 % (0-3) Neutrophils # (Auto) 5.9 x10^3/uL (1.8-7.7) Lymphocytes # (Auto) 0.4 x10^3/uL (1.0-4.8) Monocytes # (Auto) 0.5 x10^3/uL (0.0-1.1) Eosinophils # (Auto) 0.0 x10^3/uL (0.0-0.7) Basophils # (Auto) 0.0 x10^3/uL (0.0-0.2) Brief Hospital Course Acute hypoxic respiratory failure COVID-19 pneumonia Acute electrolyte derangementhyponatremia, hypochloremia due to volume deple tion HERO due to vasomotor nephropathy Hypokalemia Hypomagnesemia Mild transaminitis Moderate protein malnutrition Polycythemia due to tobacco use History of tobacco misuse Admit to medicine for further management Pulmonology consult Continue IV thiamine and vitamin C IV Solu-Medrol every 8 hours IV Remdesivir Pending ferritin, LDH, CRP, D-dimer labs Titrate O2 supplementation to maintain O2 saturation greater than 92% Heparin for DVT prophylaxis Protonix while on steroids GI prophylaxis ADA diet Full code Discussed with RN and SW Disposition inpatient management as above Surrogate decision maker is the History of Present Illness History of Present Illness 54 year old female who presents with 1 week of no appetite and fatigue. Went to her doctor and was diagnosed with a urinary tract infection and they placed her on antibiotics. She does have a chronic cough. She states that she was around somebody with Covid 3 weeks ago and that she quarantine. Patient was tested last year on September 12 and her Covid was negative. Was also hospitalized around that time with pneumonia here at [facility]. Patient has a history of hypertension, COPD, pulmonary edema, hypothyroidism, smoker. 09/28/2020 No acute events overnight. Patient saturating 90% on 3 L nasal cannula. No dyspnea reported. No concerns from nursing. Urine culture is contaminated. patient's chart, labs, images were reviewed and discussed with RN 09/29/2020 Patient saturating 96% on 3 L nasal cannula. No dyspnea reported. No concerns from nursing. Urine culture is contaminated. patient's chart, labs, images were reviewed and discussed with RN Continue present oxygen at 3 liters. Continue steroids and finish 10-day course. Initiated remdesivir. 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 Scheduled Bupropion Hcl (Bupropion Xl) 150 Mg Tab.er.24h, 150 MG PO BID for depression/smoking cessation, (Reported) Entered as Reported by: RONNI REID on 09/12/20125 Last Action: Reviewed on 09/27/20843 by AGATHA PAYNE, MICHELLE Cyclobenzaprine Hcl (Cyclobenzaprine Hcl) 10 Mg Tablet, 1 TAB PO TID, #30 Prescribed by: Allyson Berman APRN on 09/24/201615 Last Action: Continued on 09/27/201418 by CONNOR LUCIO MD Furosemide (Furosemide) 40 Mg Tablet, 40 MG PO DAILY for diuretic, (Reported) Entered as Reported by: RONNI REID on 09/12/20125 Last Action: HELD on 09/27/201418 by CONNOR LUCIO MD Gabapentin (Gabapentin ) 300 Mg Capsule, 300 MG PO TID for NEUROGENIC PAIN, #20 Prescribed by: Allyson Berman APRN on 09/24/201615 Last Action: Continued on 09/27/201418 by CONNOR LUCIO MD Hydrochlorothiazide (Hydrochlorothiazide Capsule ) 12.5 Mg Capsule, 12.5 MG PO DAILY for DIURETIC, Ref 0 (Reported) Entered as Reported by: RONNI REID on 09/12/20125 Last Action: Continued on 09/27/201418 by CONNOR LUCIO MD Ipratropium/Albuterol Sulfate (Combivent Respimat Inhal) 4 Gm Aer.w.adap, 2 INH IH QID for copd, (Reported) Entered as Reported by: RONNI REID on 09/12/20125 Last Action: HELD on 09/27/201418 by CONNOR LUCIO MD Omeprazole (Omeprazole) 40 Mg Capsule.dr, 40 MG PO DAILY for gerd, (Reported) Entered as Reported by: RONNI REID on 09/12/20125 Last Action: Reviewed on 09/27/20843 by AGATHA PAYNE RN Orphenadrine Citrate (Orphenadrine Citrate) 100 Mg Tablet.er, 1 TAB PO BID, #30 Ref 1 Prescribed by: SULTANA HANSEN MD on 01/30/17 2345 Prednisone (Prednisone) 20 Mg Tablet, 40 MG PO DAILY for copd exacerbation for 5 Days, #10 Prescribed by: CONNOR LUCIO MD on 09/13/20 1440 Last Action: HELD on 09/27/201418 by OCNNOR LUCIO MD Sulfamethoxazole/Trimethoprim (Bactrim Ds Tablet) 1 Each Tablet, 1 TAB PO BID for 3 Days, #6 Ref 0 Prescribed by: Allsyon Berman APRN on 09/24/20 1616 Last Action: HELD on 09/27/201418 by CONNOR LUCIO MD Scheduled PRN Albuterol Sulfate (Proair Hfa Inhaler) 8.5 Gm Hfa.aer.ad, 2 PUFF INH PRN Q4-6HRS PRN for SHORTNESS OF BREATH for 30 Days, #1 Ref 0 Prescribed by: JOBY BRUNSON APRN on 08/29/182153 Justicifation of Admission Dx: Justifications for Admission: Justification of Admission Dx: Yes Acute COPD Exacerbation: Acute COPD Exacerbation ADRIAN AVELAR MD Sep 30, 2020 09:50
--- NOTE | 2020-09-30 11:03 | NUR ---
SW following. Discussed with RN, pt left AMA this morning.
[2020-09-30 12:51] LABS: CALCIUM 8.4 mg/dL (8.5-10.1); CREATININE 0.7 mg/dL (0.6-1.0); GFR 86.6; MAGNESIUM 1.7 mg/dL (1.8-2.4); POTASSIUM 4.2 mmol/L (3.5-5.1)
== END 2020-09-30 09:00 | disposition left against medical advice (07) | DRG 177 ==
LOC: ER 21:00 → UNDOADMIN 22:33 → 5 SOUTH 22:33 → ED HOLD 22:33 → UNDOADMIN 09-27 00:01 → ED HOLD 09-27 00:01
PROVIDERS: ADMIT Internal Medicine; ATTEND Internal Medicine
PROC: XW033E5 Introduction of Remdesivir Anti-infective into Peripheral Vein, Percutaneous Approach, New Technology Group 5 (ICD-10-PCS; principal; 2020-09-27)
DX: U07.1 COVID-19 (principal); J96.01 Acute respiratory failure with hypoxia; J12.82 Pneumonia due to coronavirus disease 2019; N17.0 Acute kidney failure with tubular necrosis; J44.1 Chronic obstructive pulmonary disease with (acute) exacerbation; N39.0 Urinary tract infection, site not specified; E44.0 Moderate protein-calorie malnutrition; J44.0 Chronic obstructive pulmonary disease with (acute) lower respiratory infection; E87.1 Hypo-osmolality and hyponatremia; I10 Essential (primary) hypertension; E03.9 Hypothyroidism, unspecified; Z68.35 Body mass index [BMI] 35.0-35.9, adult; E66.9 Obesity, unspecified; F32.9 Major depressive disorder, single episode, unspecified; F17.200 Nicotine dependence, unspecified, uncomplicated; E83.42 Hypomagnesemia; E87.8 Other disorders of electrolyte and fluid balance, not elsewhere classified; E87.6 Hypokalemia; D75.1 Secondary polycythemia; K21.9 Gastro-esophageal reflux disease without esophagitis; F12.90 Cannabis use, unspecified, uncomplicated; E86.9 Volume depletion, unspecified; Z53.29 Procedure and treatment not carried out because of patient's decision for other reasons; Z79.899 Other long term (current) drug therapy; Z88.8 Allergy status to other drugs, medicaments and biological substances
CPT/HCPCS: 36415; 36600; 71045; 80048; 80053; 81001; 82805; 83690; 83735; 83880; 84100; 84484; 85007; 85025; 87086; 87426; 93005; 94640; 96365; 96367; 96375; J0456; J0696; J0744; J1100; J1644; J2920; J3475; J7030; J7050; 99285-25; G0378; J7613

== ENCOUNTER → 2021-07-14 | Outpatient (CLI) | payer OTHER ==
[2020-10-03 11:00] VITALS: BP 133/84
[~2021-07-14] MED LIST changes: +CYCL10TA19 PO; -CYCL10TA2 PO
--- NOTE | 2021-07-14 16:52 | RAD ---
PA and lateral chest. HISTORY: COPD, J 44.9 PA and lateral views of the chest were compared with a prior study from October 02, 2020. There is mil d thickening along the minor fissure on the right. There is linear atelectasis or scarring in the lef t lung. Heart is normal in size. There is no pleural effusion. There are no other confluent infiltrat es. IMPRESSION: 1. Thickening along the minor fissure or fluid along the fissure on the right. 2. Linear scarring or atelectasis left lung. 3. No other acute infiltrates. Electronically signed by: Boone Jensen MD (07/14/2021 4:50 PM) [id number]
== END ==
LOC: RAD 15:40
PROVIDERS: ATTEND Family Medicine
DX: J44.9 Chronic obstructive pulmonary disease, unspecified (principal); J98.4 Other disorders of lung; J98.11 Atelectasis
CPT/HCPCS: 71046